=== PATIENT | male | born 1960 | race Caucasian/White ===

== ENCOUNTER → 2017-08-15 09:16 | Outpatient (CLI) | payer OTHER, SELFPAY ==
[2017-08-15 09:56] LABS: Anion Gap 8.3 mEq/L (5-15); Blood Urea Nitrogen 23 mg/dL (7-18); Carbon Dioxide 29 mmol/L (21.0-32.0); Chloride 103 mmol/L (98-107); Creatinine,Serum 0.98 mg/dL (0.70-1.30); Estimated Glomerular Filt Rate 80 ml/min (>60); GFR (African American) 96 ML/MIN (>60); Glucose 107 mg/dL (74-106); Potassium 4.3 mmoL/L (3.5-5.1); Sodium 136 mmol/L (136-145)
[2017-08-15 10:23] LABS: Basophils % 0.7 % (0.1-2.0); Eosinophils # 0.1 K/mm3 (0.0-0.4); Eosinophils % 1.8 % (0.1-12.0); Hematocrit 44.1 % (42.0-52.0); Hemoglobin 14.6 g/dL (14.1-18.0); Lymphocytes # 1.5 K/mm3 (0.7-4.5); Lymphocytes % 23.6 K/mm3 (10-50); Mean Corpuscular HGB Conc 33.1 g/dL (31.8-35.4); Mean Corpuscular Volume 93.6 fl (80-94); Mean Platelet Volume 8.5 fl (7.4-10.4); Monocytes # 0.4 K/mm3 (0.1-1.0); Monocytes % 6.4 % (1.7-9.3); Neutrophils # 4.4 K/mm3 (1.8-7.8); Neutrophils % 67.5 % (37.0-80.0); Platelet Count 277 K/mm3 (142-424); Red Blood Count 4.71 M/mm3 (4.60-6.20); Red Cell Distribution Width 12.7 % (11.5-17.5); White Blood Count 6.5 K/mm3 (4.8-10.8)
== END ==
PROVIDERS: Visit Provider Surgery
DX: K64.9 Unspecified hemorrhoids (principal)
CPT/HCPCS: 36415; 80048; 85025

== ENCOUNTER 2017-08-17 06:02 | Day surgery (SDC) | payer OTHER, SELFPAY ==
[2017-08-16 12:58] VITALS: BMI 35.9
[2017-08-17] VITALS (12 sets, daily range): BP systolic 66–140; BP diastolic 33–78; PULSE 47–99; RESP 16–20; TEMP 36.3–36.9; O2SAT 94–99
--- NOTE | 2017-08-17 06:50 | P.PN_ITS ---
[facility] Anesthesia Checklist - Structural Data Admitted From: Home Planned Operative Procedure/s: hemorrhoidectomy Consent for Planned Operative Procedure(s) Verified: Yes Verified Documents: Surgical Consent - Airway Assessment C-Spine Mobility Assessed: Yes TMJ Mobility Assessed: Yes Dentition: Good Dentition - Neurological Assessment Level of Consciousness: Awake, Alert - Anesthesia Plan Anesthesia Risk discussed: Yes Anesthesia Plan: Verified ASA Class: II Anesthesia Type: General [facility] Anesthesia HX I have reviewed the patient's past medical history: Yes Medical History: Reports:: Cancer (skin on back), Hypertension Denies:: Diabetes Mellitus Type 1, Diabetes Mellitus Type 2, MRSA, Seizures Other Medical History: Comment Only: Blood Transfusion Reaction (NA) Other Surgeries: Yes: Cancer Surgery, Colonoscopy, EGD Amputation: No Fractures: Yes *Family Hx:: Cancer, Hypertension
--- NOTE | 2017-08-17 09:00 | HMH.ANESI ---
[facility] Anesthesia Record Part I Intake, IV Amount: 600 Estimated blood loss (mL): 25 Urine output (mL): 10 Blood Products used (#): none Blood Pressure: 129/75 SaO2: 95 Pulse Rate: 96 Respiratory Rate: 18 Temperature: 97.4 F Patient is:: Awake, Stable Stable to PACU at:: 08:56
--- NOTE | 2017-08-17 09:02 | P.PN_ITS ---
[facility] Anesthesia Record Part II Discharge Time: 09:26 Destination: Surgical Day Care (OP Surgery) PACU nurse assessment reviewed?: Yes Patient Condition:: Good Anesthesia Complications:: None
--- NOTE | 2017-08-17 09:03 | P.OP_ITS ---
Date of procedure: 08/17/17 Pre-op Diagnosis:: Hemorrhoid bleeding Post-op Diagnosis:: Same Procedure performed:: Extensive internal/external hemorrhoidectomy ?2 Surgeon:: William Joy MD CAD APPLICATION SUPPORT SPECIALIST:: Livan Sandhu Anesthesia: LMA Estimated blood loss (mL): 100 Clinical Note:: Patient is a 56-year-old white male. I had performed colonoscopy on him a couple of years ago at which time he was found to have some slightly inflamed hemorrhoids. He was recently seen in the office for possible gallbladder issues. However this appeared to be incidental and asymptomatic. However, the patient stated that he had some ongoing rectal bleeding. I had given him a trial of steroid suppositories and he states that this helped somewhat transiently but then his symptoms recurred and been difficult with appreciable amount of rectal bleeding with bowel movements. Plan was made for possible hemorrhoid banding with exam under anesthesia and potential hemorrhoidectomy. Operative findings:: Patient had extensive nearly circumferential internal and external hemorrhoids. Had inflamed internal piles of hemorrhoids which appear to be irritated and using most notably in the left lateral and right posterior lateral locations. Operative note:: Consent was obtained and patient was taken to the operating room. General surgery was induced via LMA. He was positioned in lithotomy position. At this point visualization determined obvious extensive internal and external hemorrhoids. He was prepped and draped. Plan was made to proceed with hemorrhoidectomy. Digital examination was performed which revealed extensive hemorrhoid tissue. Rombauer anoscope was inserted. In the left lateral location there were some external hemorrhoids along with internal hemorrhoids which appeared to be irritated inflamed and oozing. There is also noted internal hemorrhoids which appeared to be friable and oozing in the right posterior lateral location. He did however have more extensive hemorrhoids circumferentially but these appeared to be nonbleeding. Attention was first turned to the left lateral hemorrhoid pile. This was excised in elliptical fashion using Metzenbaum dissection. Anoderm and underlying hemorrhoid tissue was sent off as specimen. The anorectal mucosa was then closed with a running locking 2-0 chromic suture and oversewn with simple running 2-0 chromic. Next attention was turned to the right posterior lateral hemorrhoid pile which was excised in a similar fashion. Anoderm was incised with 15 blade scalpel and then the anorectal mucosa and hemorrhoid tissue was excised. Mucosa was then reapproximated with a running 2-0 chromic locking suture and oversewn with simple running 2-0 chromic. Local anesthetic was infiltrated into both surgical sites. Gelfoam roll soaked in topical hemostatic agent was inserted into the rectal vault. Dressing was applied. Condition: stable Disposition: PACU Specimens:: Hemorrhoid tissue Complications:: None
[2017-08-17 10:32] LABS: Hematocrit 39.2 % (42.0-52.0)
--- NOTE | 2017-08-17 11:24 | SUR.PHASEII ---
1015- Pt states that he feels lightheaded and nauseated. bp:66/33, p:47 color is pale. Cool compress applied to forehead, iv opened wide for fluid bolus. Vic Geller in to see pt. Stat H&H order obtained. 1025- BP 81/46, p:59. Pt states that he is beginning to feel better. IV remains wide open. 1040- BP 103/60, P: 70. H&H results obtained, 500 CC iv bolus infused. Vic Geller in to revaluate pt., who states feling Much better . Detrermined ok to d/c pt when ready.
== END 2017-08-17 10:55 | disposition home or self-care (01) ==
LOC: OR 06:07
PROVIDERS: Family Provider Family Medicine; PCP Family Medicine; Visit Provider Surgery
PROC: (CPT 46260; principal; 2017-08-17 07:30)
DX: K64.8 Other hemorrhoids (principal)
CPT/HCPCS: 46260; 36415; 85014; 85018; 96374; J0131; J2405

== ENCOUNTER → 2020-10-28 19:25 | Outpatient (CLI) | payer OTHER, SELFPAY | PROVIDERS: Visit Provider Nurse Practitioner Family | DX: Z20.822 Contact with and (suspected) exposure to COVID-19 (principal) | CPT/HCPCS: U0003 ==

== ENCOUNTER 2020-11-01 01:29 | Emergency (ER) | payer OTHER, SELFPAY ==
[2020-11-01 01:30] VITALS: BP 156/87; PULSE 71; RESP 16; TEMP 37; O2SAT 96; BMI 39.4
--- NOTE | 2020-11-01 01:56 | HMH.EDABDPAI ---
ED Disposition Clinical Impression: Acute vomiting Disposition: Home, Self-Care Condition on Discharge: Good Instructions: DI for Acute Abdominal Pain Additional Instructions: Use the Zofran as needed for nausea and vomiting and increase oral hydration. Return to the ED for any new or worsening symptoms. Prescriptions: Ondansetron [Zofran 4mg ODT] 4 mg PO TIDP PRN 3 Days #9 tab PRN Reason: Nausea Transmission Status: Pending to [facility] #[id number] Referrals: Anant Esteves MD [Primary Care Provider] - Time of Disposition: 03:28 - Critical Care Critical Care Time: No Attestation: On 11/01/20, the high probability of a clinically significant, sudden or life threatening deterioration of the following system(s) required my full and direct attention, intervention and personal management. The time I documented below is in addition to time spent performing reported procedures but includes the following listed in this critical care notation. Medical Decision Making - Medical Records Medical records reviewed: Yes: I reviewed the patient's medical records. - Chau Inquiry Pt receiving controlled substance: No Vital Signs: 11/01/20 01:30 11/01/20 03:21 Temperature 98.6 F Temperature Source Oral Pulse Rate 78 Pulse Rate [Left Radial] 71 Respiratory Rate 16 Blood Pressure 129/70 Blood Pressure [Right Arm] 156/87 H Blood Pressure Mean [Right Arm] 110 Blood Pressure Source [Right Arm] Automatic Cuff Blood Pressure Position [Right Arm] Sitting 02 Sat by Pulse Oximetry 96 98 Oxygen Delivery Method Room Air - Lab Data Lab Results 11/01/20 01:35: Urine Color Yellow, Urine Appearance Clear, Urine pH 6.0, Ur Specific [place] 1.025, Urine Protein Negative, Urine Glucose (UA) Negative, Urine Ketones Negative, Urine Blood Trace-i, Urine Nitrate Negative, Urine Bilirubin Negative, Urine Urobilinogen 0.2, Ur Leukocyte Esterase Negative, Urine RBC Occasional, Urine WBC Occasional, Ur Squamous Epith Cells 3-5, Urine Bacteria None, Urine Sperm Occ 11/01/20 02:37: WBC 7.2, RBC 4.69, Hgb 14.2, Hct 42.3, MCV 90.1, MCH 30.3, MCHC 33.6, RDW 13.2, Plt Count 192, MPV 8.5, Neut % (Auto) 38.8, Lymph % (Auto) 52.5 H, [place] % (Auto) 6.1, Eos % (Auto) 1.6, Baso % (Auto) 1.1, Neut # (Auto) 2.8, Lymph # (Auto) 3.8, [place] # (Auto) 0.4, Eos # (Auto) 0.1, Baso # (Auto) 0.1, Total Counted 100, Neutrophils % (Manual) 33 L, Lymphocytes % (Manual) 61 H, Monocytes % (Manual) 5, Basophils % (Manual) 1.0, Platelet Estimate Normal, RBC Morphology Normal 11/01/20 02:37: Sodium 137, Potassium 3.6, Chloride 103, Carbon Dioxide 25, Anion Gap 12.6, BUN 23 H, Creatinine 0.70, Estimated Creat Clear 199, Estimated GFR 116, Est GFR ( Amer) 141, Glucose 167 H, Calcium 8.7, Total Bilirubin 0.4, AST 44, ALT 39, Alkaline Phosphatase 104, Total Protein 7.1, Albumin 3.9, Globulin 3.2, Albumin/Globulin Ratio 1.2, Lipase 98 Result diagrams: 11/01/20 02:37 11/01/20 02:37 Orders (Tests/Meds): ED MEDICATIONS Generic Name Dose Route Start Last Admin Trade Name Freq PRN Reason Stop Dose Admin Sodium Chloride 1,000 mls @ 999 mls/hr 11/01/20 02:00 11/01/20 02:39 Sod Chlor 0.9% 1000ml Bag IV 11/01/20 03:00 999 mls/hr .Q1H1M DYLON Administration Discontinued Medications Generic Name Dose Route Start Last Admin Trade Name Freq PRN Reason Stop Dose Admin Belladonna Alkaloids 60 ml 11/01/20 01:56 11/01/20 02:38 Gi Cocktail 60ml Udc PO 11/01/20 01:57 60 ml ONCE ONE Administration Ketorolac Tromethamine 15 mg 11/01/20 01:56 11/01/20 02:38 Ketorolac 30mg/Ml Vial IV 11/01/20 01:57 15 mg ONCE ONE Administration Ondansetron HCl 4 mg 11/01/20 01:56 11/01/20 02:39 Ondansetron 4mg/2ml Vial IV 11/01/20 01:57 4 mg ONCE ONE Administration Medical Decision Narrative: 59 yo M who presents with sudden onset of crampy abdominal discomfort and vomiting. He is well appearing and nontoxic and has a benig
[2020-11-01 02:01] LABS: Microscopic, Urine URINE MICROSCOPIC (MICROSCOPIC)
[2020-11-01 02:03] LABS: Appearance,Urine CLEAR (Clear); Bilirubin,Urine Negative (Negative); Blood, Urine TRACE-I (Negative); Color,Urine YELLOW (Yellow); Glucose,Urine (UA) Negative (Negative); Ketones,Urine Negative (Negative); Leukocyte Esterase,Urine Negative (Negative); Nitrate,Urine Negative (Negative); Protein,Urine Negative (Negative); Specific Gravity, Urine 1.025 (1.005-1.030); Urobilinogen,Urine 0.2 EU/dl (0.2)
[2020-11-01 02:12] LABS: RBC,Urine Occasional #/hpf (0-3); Sperm,Urine OCC /lpf; WBC,Urine Occasional #/hpf (0-3)
[2020-11-01 02:43] LABS: Basophils # 0.1 K/mm3 (0-0.2); Basophils % 1.1 % (0.1-2.0); Eosinophils # 0.1 K/mm3 (0.0-0.4); Eosinophils % 1.6 % (0.1-12.0); Hematocrit 42.3 % (42.0-52.0); Hemoglobin 14.2 g/dL (14.1-18.0); Lymphocytes # 3.8 K/mm3 (0.7-4.5); Lymphocytes % 52.5 % (10-50); Mean Corpuscular HGB Conc 33.6 g/dL (31.8-35.4); Mean Corpuscular Hemoglobin 30.3 pg (27.0-31.2); Mean Corpuscular Volume 90.1 fl (80-94); Mean Platelet Volume 8.5 fl (7.4-10.4); Monocytes # 0.4 K/mm3 (0.1-1.0); Monocytes % 6.1 % (1.7-9.3); Neutrophils # 2.8 K/mm3 (1.8-7.8); Neutrophils % 38.8 % (37.0-80.0); Platelet Count 192 K/mm3 (142-424); Red Blood Count 4.69 M/mm3 (4.60-6.20); Red Cell Distribution Width 13.2 % (11.5-17.5); White Blood Count 7.2 K/mm3 (4.8-10.8)
[2020-11-01 02:48] LABS: MANUAL DIFFERENTIAL MANUAL DIFFERENTIAL (MANUAL DIFF)
[2020-11-01 02:49] LABS: Chloride 103 mmol/L (98-107); Potassium 3.6 mmoL/L (3.5-5.1); Sodium 137 mmol/L (136-145)
[2020-11-01 02:51] LABS: Alanine Aminotransferase 39 U/L (12-78); Alkaline Phosphatase 104 U/L (38-126); Aspartate Amino Transferase 44 U/L (17-59); Bilirubin,Total 0.4 mg/dl (0.2-1.3); Blood Urea Nitrogen 23 mg/dl (9-20); Creatinine Clearance Estimated 199 mL/min (50-200); Estimated Glomerular Filt Rate 116 ml/min (>60); GFR (African American) 141 ML/MIN (>60)
[2020-11-01 02:52] LABS: Albumin Level 3.9 g/dl (3.5-5.0); Albumin/Globulin Ratio 1.2 (1.1-1.8); Anion Gap 12.6 mEq/L (5-15); Calcium 8.7 mg/dl (8.4-10.2); Carbon Dioxide 25 mmol/L (22.0-30.0); Globulin 3.2 g/dL (1.3-3.2); Glucose 167 mg/dl (74-100); Lipase 98 U/L (23-300); Total Protein,Serum 7.1 g/dl (6.3-8.2)
[2020-11-01 03:08] LABS: Lymphocytes % 61 % (10-50); Monocytes % 5 % (2-9); Neutrophils % 33 % (42-76); Platelet Estimate Normal; RBC Morphology Normal; Total Cells Counted 100
[2020-11-01 03:21] VITALS: BP 129/70; PULSE 78; O2SAT 98
[2020-11-01 03:43] VITALS: BP 113/73; PULSE 73; RESP 18; TEMP 36.2; O2SAT 99
== END 2020-11-01 03:55 | disposition home or self-care (01) ==
PROVIDERS: Emergency Provider Student in an Organized Health Care Education/Training Program; PCP Family Medicine
DX: R10.10 Upper abdominal pain, unspecified (principal); R11.10 Vomiting, unspecified; I10 Essential (primary) hypertension; Z79.899 Other long term (current) drug therapy
CPT/HCPCS: 80053; 81001; 83690; 85007; 85025; 96365; 96375; 99282; J2405

== ENCOUNTER 2020-11-03 04:15 | Emergency (ER) | payer OTHER, SELFPAY ==
[2020-11-03 04:16] VITALS: BP 140/79; PULSE 72; RESP 18; TEMP 37.1; O2SAT 96; BMI 38.2
[2020-11-03 04:29] VITALS: BMI 39.6
--- NOTE | 2020-11-03 04:32 | CT_ITS ---
PROCEDURE INFORMATION: Exam: CT Abdomen And Pelvis With Contrast Exam date and time: 11/03/2020 4:32 AM Age: 59 years old Clinical indication: Abdominal pain; Localized; Patient HX: Upper abd pain for 2 days with vomiting TECHNIQUE: Imaging protocol: Computed tomography of the abdomen and pelvis with contrast. Radiation optimization: All CT scans at this facility use at least one of these dose optimization techniques: automated exposure control; mA and/or kV adjustment per patient size (includes targeted exams where dose is matched to clinical indication); or iterative reconstruction. Contrast material: ISOVUE; Contrast volume: 75 ml; Contrast route: IV; COMPARISON: No relevant prior studies available. FINDINGS: Liver: The liver is diffusely low in attenuation. Gallbladder and bile ducts: There is edema adjacent to the gallbladder. No stones are identified but the gallbladder is filled with somewhat hyper dense material. The wall is not discerned. Pancreas: Normal. No ductal dilation. Spleen: Normal. No splenomegaly. Adrenal glands: Normal. No mass. Kidneys and ureters: Normal. No hydronephrosis. Stomach and bowel: Unremarkable. No obstruction. No mucosal thickening. Appendix: No evidence of appendicitis. Intraperitoneal space: Unremarkable. No free air. No significant fluid collection. Vasculature: Unremarkable. No abdominal aortic aneurysm. Lymph nodes: Unremarkable. No enlarged lymph nodes. Urinary bladder: Unremarkable as visualized. Reproductive: Unremarkable as visualized. Bones/joints: Unremarkable. No acute fracture. Soft tissues: Unremarkable. IMPRESSION: Diffuse pericholecystic edema worrisome for acute cholecystitis. Correlation with right upper quadrant ultrasound is recommended. Diffuse hepatic steatosis.
--- NOTE | 2020-11-03 04:41 | HMH.EDNVD ---
ED Disposition Clinical Impression: Cholecystitis Abdominal pain Qualifiers: Abdominal location: epigastric Qualified Code(s): R10.13 - Epigastric pain Disposition: Home, Self-Care Condition on Discharge: Good Instructions: DI for Acute Abdominal Pain Additional Instructions: call pcp this am Referrals: Anant Esteves MD [Primary Care Provider] - - Critical Care Critical Care Time: No Attestation: On , the high probability of a clinically significant, sudden or life threatening deterioration of the following system(s) required my full and direct attention, intervention and personal management. The time I documented below is in addition to time spent performing reported procedures but includes the following listed in this critical care notation. Medical Decision Making - Medical Records Medical records reviewed: Yes: I reviewed the patient's medical records. - Chau Inquiry Pt receiving controlled substance: No Vital Signs: 11/03/20 04:16 11/03/20 05:00 11/03/20 05:51 Temperature 98.7 F Temperature Source Oral Pulse Rate 65 Pulse Rate [Left] 72 Respiratory Rate 18 16 Blood Pressure 141/78 H 136/81 Blood Pressure [Left Arm] 140/79 Blood Pressure Mean 102 Blood Pressure Mean [Left Arm] 99 Blood Pressure Source Automatic Cuff Blood Pressure Source [Left Arm] Automatic Cuff Blood Pressure Position Sitting 02 Sat by Pulse Oximetry 96 96 Oxygen Delivery Method Room Air Room Air - Lab Data Lab results reviewed: Yes: I reviewed the patient's lab results. Lab Results 11/03/20 04:35: WBC 10.2 D, RBC 4.68, Hgb 14.3, Hct 41.6 L, MCV 88.7, MCH 30.6, MCHC 34.5, RDW 13.2, Plt Count 257 D, MPV 8.4, Neut % (Auto) 66.3, Lymph % (Auto) 25.1, [place] % (Auto) 6.9, Eos % (Auto) 1.3, Baso % (Auto) 0.5, Neut # (Auto) 6.8, Lymph # (Auto) 2.6, [place] # (Auto) 0.7, Eos # (Auto) 0.1, Baso # (Auto) 0.1, ESR 22 H 11/03/20 04:35: Sodium 136, Potassium 3.8, Chloride 105, Carbon Dioxide 24, Anion Gap 10.8, BUN 19, Creatinine 0.70, Estimated Creat Clear 206, Estimated GFR 116, Est GFR ( Amer) 141, Glucose 157 H, Calcium 8.5, Total Bilirubin 0.6, AST 40, ALT 41, Alkaline Phosphatase 105, C-Reactive Protein 17.0 H, Total Protein 7.3, Albumin 4.2, Globulin 3.1, Albumin/Globulin Ratio 1.4, Amylase 51, Lipase 103, Procalcitonin 0.100 11/03/20 04:40: Urine Color Yellow, Urine Appearance Clear, Urine pH 6.0, Ur Specific [place] 1.020, Urine Protein Negative, Urine Glucose (UA) Negative, Urine Ketones Negative, Urine Blood Trace-i, Urine Nitrate Negative, Urine Bilirubin Negative, Urine Urobilinogen 0.2, Ur Leukocyte Esterase Negative, Urine RBC Occasional, Urine WBC Occasional, Ur Squamous Epith Cells None, Urine Bacteria None Result diagrams: 11/03/20 04:35 11/03/20 04:35 Orders (Tests/Meds): ED MEDICATIONS Generic Name Dose Route Start Last Admin Trade Name Freq PRN Reason Stop Dose Admin Lactated Ringer's 1,000 mls @ 999 mls/hr 11/03/20 04:45 11/03/20 04:37 Lactated Ringer's 1000 Ml Bag IV 11/03/20 05:45 999 mls/hr .Q1H1M DYLON Administration Sodium Chloride 8 ml 11/03/20 04:32 Sodium Chloride 0.9% 10ml Vial IV 12/03/20 04:31 NEEDED PRN dilute pepcid Discontinued Medications Generic Name Dose Route Start Last Admin Trade Name Freq PRN Reason Stop Dose Admin Diatrizoate Meglum/Diatrizoate Sod 30 ml 11/03/20 04:32 11/03/20 04:40 Diatrizoate Stephanie 66% & Diatrizoate Na 10% 30ml Udc PO 11/03/20 04:33 30 ml ONCE ONE Administration Famotidine 20 mg 11/03/20 04:32 11/03/20 04:37 Famotidine 20mg/2ml Vial IV 11/03/20 04:33 20 mg ONCE ONE Administration Iopamidol 75 ml 11/03/20 05:51 11/03/20 05:52 Iopamidol-370 (76%);100ml Bottle IV 11/03/20 05:52 75 ml ONCE ONE Administration Ketorolac Tromethamine 30 mg 11/03/20 04:32 11/03/20 04:37 Ketorolac 30mg/Ml Vial IV 11/03/20 04:33 30 mg ONCE ONE Administration Metoclopramide HCl
[2020-11-03 04:46] LABS: Microscopic, Urine URINE MICROSCOPIC (MICROSCOPIC)
[2020-11-03 04:47] LABS: Basophils # 0.1 K/mm3 (0-0.2); Basophils % 0.5 % (0.1-2.0); Eosinophils # 0.1 K/mm3 (0.0-0.4); Eosinophils % 1.3 % (0.1-12.0); Hematocrit 41.6 % (42.0-52.0); Hemoglobin 14.3 g/dL (14.1-18.0); Lymphocytes # 2.6 K/mm3 (0.7-4.5); Lymphocytes % 25.1 % (10-50); Mean Corpuscular HGB Conc 34.5 g/dL (31.8-35.4); Mean Corpuscular Hemoglobin 30.6 pg (27.0-31.2); Mean Corpuscular Volume 88.7 fl (80-94); Mean Platelet Volume 8.4 fl (7.4-10.4); Monocytes # 0.7 K/mm3 (0.1-1.0); Monocytes % 6.9 % (1.7-9.3); Neutrophils # 6.8 K/mm3 (1.8-7.8); Neutrophils % 66.3 % (37.0-80.0); Platelet Count 257 K/mm3 (142-424); Red Blood Count 4.68 M/mm3 (4.60-6.20); Red Cell Distribution Width 13.2 % (11.5-17.5); White Blood Count 10.2 K/mm3 (4.8-10.8)
[2020-11-03 04:48] LABS: Appearance,Urine CLEAR (Clear); Bilirubin,Urine Negative (Negative); Blood, Urine TRACE-I (Negative); Color,Urine YELLOW (Yellow); Glucose,Urine (UA) Negative (Negative); Ketones,Urine Negative (Negative); Leukocyte Esterase,Urine Negative (Negative); Nitrate,Urine Negative (Negative); Protein,Urine Negative (Negative); Urobilinogen,Urine 0.2 EU/dl (0.2)
--- NOTE | 2020-11-03 04:48 | PC.NURSE ---
PO contrast not given Order changed
[2020-11-03 04:53] LABS: RBC,Urine Occasional #/hpf (0-3); WBC,Urine Occasional #/hpf (0-3)
--- NOTE | 2020-11-03 04:53 | PC.NURSE ---
MD decided to not have pt take oral contrast, IV only. Pt will be kept NPO at this time.
[2020-11-03 04:56] LABS: Alanine Aminotransferase 41 U/L (12-78); Albumin Level 4.2 g/dl (3.5-5.0); Albumin/Globulin Ratio 1.4 (1.1-1.8); Alkaline Phosphatase 105 U/L (38-126); Amylase 51 U/L (30-110); Anion Gap 10.8 mEq/L (5-15); Aspartate Amino Transferase 40 U/L (17-59); Bilirubin,Total 0.6 mg/dl (0.2-1.3); Blood Urea Nitrogen 19 mg/dl (9-20); Calcium 8.5 mg/dl (8.4-10.2); Carbon Dioxide 24 mmol/L (22.0-30.0); Chloride 105 mmol/L (98-107); Creatinine Clearance Estimated 206 mL/min (50-200); Estimated Glomerular Filt Rate 116 ml/min (>60); GFR (African American) 141 ML/MIN (>60); Globulin 3.1 g/dL (1.3-3.2); Glucose 157 mg/dl (74-100); Lipase 103 U/L (23-300); Potassium 3.8 mmoL/L (3.5-5.1); Sodium 136 mmol/L (136-145); Total Protein,Serum 7.3 g/dl (6.3-8.2)
[2020-11-03 05:00] VITALS: BP 141/78; PULSE 65; RESP 16; O2SAT 96
[2020-11-03 05:11] LABS: Erythrocyte Sedimentation Rate 22 mm/hr (0-20)
--- NOTE | 2020-11-03 05:35 | PC.NURSE ---
Pt had a BM and reports his pain has been relieved and rates it 0/10.
--- NOTE | 2020-11-03 05:48 | PC.NURSE ---
Pt ambulating independently to BR again at this time.
[2020-11-03 05:51] VITALS: BP 136/81
--- NOTE | 2020-11-03 06:17 | PC.NURSE ---
recommends for pt to have RUQ ABD u/s however, pt requesting to be d/c at this time.
--- NOTE | 2020-11-03 06:22 | PC.NURSE ---
Pt instructed to keep NPO status for u/s
[2020-11-03 06:24] VITALS: BP 136/77; PULSE 61; RESP 14; TEMP 36.6; O2SAT 96
== END 2020-11-03 06:26 | disposition home or self-care (01) ==
PROVIDERS: Emergency Provider Emergency Medicine; PCP Family Medicine
DX: K81.0 Acute cholecystitis (principal); I10 Essential (primary) hypertension; Z79.899 Other long term (current) drug therapy
CPT/HCPCS: 74177; 80053; 81001; 82150; 83690; 84145; 85025; 85651; 86140; 96365; 96375; 99283; J2405; Q9967

== ENCOUNTER → 2020-11-03 14:54 | Outpatient (CLI) | payer OTHER, SELFPAY | PROVIDERS: Visit Provider Surgery | DX: Z01.812 Encounter for preprocedural laboratory examination (principal); Z11.52 Encounter for screening for COVID-19; R10.11 Right upper quadrant pain; K81.9 Cholecystitis, unspecified | CPT/HCPCS: U0003 ==

== ENCOUNTER 2020-11-04 11:26 | Observation (INO) | payer OTHER, SELFPAY ==
[2020-11-03 16:27] VITALS: BMI 38.9
[2020-11-04] VITALS (23 sets, daily range): BP systolic 121–164; BP diastolic 75–97; PULSE 72–100; RESP 12–18; TEMP 36.8–43; O2SAT 90–98; BMI 37.8
--- NOTE | 2020-11-04 08:24 | US_ITS ---
PROCEDURE: US GALLBLADDER CLINICAL INDICATION: ABdominal pain COMPARISON: CT CT ABDOMEN PELVIS W CON from 11/03/2020 FINDINGS: Pancreas: Unremarkable/Not well seen Liver: Diffuse increased echogenicity of the liver with poor through transmission of sound consistent with hepatic steatosis. No focal liver lesion demonstrated. There is appropriate direction of blood flow within non dilated portal vein. Right kidney: Unremarkable appearing. No hydronephrosis. Gallbladder: Gallbladder wall is thickened measuring up to 7 mm with a small amount of pericholecystic fluid. Images are somewhat limited secondary to patient's body habitus. There is diffuse increased echogenicity of the contents of the gallbladder consistent with sludge and suspected small stones with some shadowing. Common bile duct is normal at 4 mm. Gallbladder is slightly distended. IMPRESSION: Distended gallbladder filled with sludge and small stones with thickened gallbladder wall and a small amount pericholecystic fluid suggesting acute cholecystitis. Common bile duct is normal 4 mm. Dictated by: Chicho Richardson MD 11/04/2020 10:12 Chicho Richardson MD in OV 11/04/2020 10:12
--- NOTE | 2020-11-04 09:39 | P.PN_ITS ---
[facility] Anesthesia Checklist - Patient Identification Patient Identification: Arm Band - Structural Data Admitted From: Home Planned Operative Procedure/s: Lap. cholecystectomy - NPO Status Verified Time NPO: 00:00 - Additional verifications Anesthesia Reactions: No Hx Blood Transfusions: No Blood Transfusion Reaction: (NA) - Airway Assessment C-Spine Mobility Assessed: Yes TMJ Mobility Assessed: Yes Dentition: Good Dentition - Neurological Assessment Level of Consciousness: Awake Hx Seizures: No Numbness or tingling in extremities: No - Anesthesia Plan Anesthesia Risk discussed: Yes Anesthesia Plan: Verified ASA Class: II Anesthesia Type: General [facility] History I have reviewed the patient's past medical history: Yes Medical History: Reports:: Cancer (skin- basal cell), Hypertension Denies:: Diabetes Mellitus Type 1, Diabetes Mellitus Type 2, Internal Pacemaker, MRSA, Seizures *Have you ever received a pneumonia vaccine?: No *Have you received a flu vaccine this season?: Yes Other Medical History: Reports: OtherComment Only: Blood Transfusion Reaction (NA) Anesthesia experience/problems:: BP issues Other Surgeries: Yes: Cancer Surgery, Colonoscopy, EGD. No: Pacemaker Amputation: No Fractures: Yes (BILATERAL WRIST) - *Social History Last grade of school completed: Some college Smoking Status: Never smoker Alcohol Intake: never Alcohol Intake Frequency:: other Substance Use Type: denies use *Occupational Status:: employed Housing: house Household Members: spouse *Travel in the last 8 weeks: None Family Hx:: Cancer, Hypertension
--- NOTE | 2020-11-04 10:56 | HMH.ANESCL ---
[facility] Anesthesia Checklist - Patient Identification Patient Identification: Arm Band - Structural Data Admitted From: Home Planned Operative Procedure/s: Lap. francine Consent for Planned Operative Procedure(s) Verified: Yes Verified Documents: Surgical Consent, History and Physical - NPO Status Verified Time NPO: 00:00 - Additional verifications Anesthesia Reactions: No Hx Blood Transfusions: No Blood Transfusion Reaction: (NA) - Airway Assessment C-Spine Mobility Assessed: Yes TMJ Mobility Assessed: Yes Dentition: Good Dentition - Neurological Assessment Level of Consciousness: Awake, Alert - Anesthesia Plan Anesthesia Risk discussed: Yes Anesthesia Plan: Verified ASA Class: III Anesthesia Type: General [facility] History Medical History: Reports:: Cancer (skin- basal cell), Hypertension Denies:: Diabetes Mellitus Type 1, Diabetes Mellitus Type 2, Internal Pacemaker, MRSA, Seizures *Have you ever received a pneumonia vaccine?: No *Have you received a flu vaccine this season?: Yes Other Medical History: Reports: OtherComment Only: Blood Transfusion Reaction (NA) Anesthesia experience/problems:: BP issues Other Surgeries: Yes: Cancer Surgery, Colonoscopy, EGD. No: Pacemaker Amputation: No Fractures: Yes (BILATERAL WRIST) - *Social History Last grade of school completed: Some college Smoking Status: Never smoker Alcohol Intake: never Alcohol Intake Frequency:: other Substance Use Type: denies use *Occupational Status:: employed Housing: house Household Members: spouse *Travel in the last 8 weeks: None Family Hx:: Cancer, Hypertension
--- NOTE | 2020-11-04 11:09 | SUR.OPER ---
1109-pt's updated at this time
--- NOTE | 2020-11-04 12:43 | SUR.OPER ---
1243-family updated at this time
--- NOTE | 2020-11-04 13:56 | HMH.OPNOTE ---
Date of procedure: 11/04/20 Pre-op Diagnosis:: Symptomatic gallstones Incidental umbilical hernia Post-op Diagnosis:: Severe acute cholecystitis Umbilical hernia Procedure performed:: Laparoscopic cholecystectomy Open primary repair of umbilical hernia Surgeon:: William Joy MD ASSESSMENT COORDINATOR:: Other Anesthesia: GETA Estimated blood loss (mL): 40 Clinical Note:: Patient is a 59-year-old male whom I had seen in the past previously for colonoscopy. He also had undergone hemorrhoid surgery. He has a known history of gallstones as he had some lower abdominal pain in the past and has CT scan revealing gallstones. This seemed to be asymptomatic and incidental at that time. However, recently he has had some symptoms consistent with possible gallbladder disease. Patient had eaten [employer] food in [place], [place] and had developed epigastric pain with some associated nausea. He presented to the emergency department here at [facility] on 11/01/2020 where he was seen and evaluated and diagnosed with possible food poisoning. He was able to be managed as an outpatient. However he had recurrent symptoms and was seen in the emergency department yesterday morning. He underwent CT scan which reveals multiple gallstones with possible pericholecystic fluid and edema. Gallbladder ultrasound was recommended. Patient's symptoms improved and he wished to follow-up as an outpatient. He was seen in his primary care provider's office after being seen in the emergency department and sent for surgical evaluation. Patient was seen in the office yesterday. At that time he felt well. He had some minor discomfort to deep palpation in the right upper quadrant. Options were discussed with him. He wished to pursue cholecystectomy which was scheduled for the following day. Upon presentation for surgery patient states that he felt very ill throughout the evening with fevers and significant pain. He did undergo ultrasound preoperatively which revealed findings of thick sludge and debris with gallbladder wall thickening and small amount of pericholecystic fluid with normal common bile duct. Operative findings:: He had a small to moderate sized umbilical hernia. Gallbladder is severely inflamed and thickened virtually resembling a phlegmon in the right upper quadrant with numerous gallstones. He had significant fatty infiltration of the liver consistent with nonalcoholic fatty liver disease. Operative note:: Consent was obtained and patient was taken to the operating room. He was given preoperative intravenous antibiotic consisting of 2 g of Ancef. He was placed in a supine position. General anesthesia was induced. Abdomen was prepped and draped in the standard surgical fashion. Subumbilical incision was made. Dissection was carried down to the umbilical subdermis. Hernia sac was opened. Peritoneal cavity was easily entered. Blunt Milner trocar was inserted into the peritoneal cavity and secured with the 0 Vicryl sutures to the surrounding fascia. CO2 pneumoperitoneum was achieved to 15 mmHg. Patient was positioned in reverse Trendelenburg left side down. A couple 5 mm trochars were inserted in the right upper abdomen. Please note that ultimately an additional 5 mm trocar was inserted in the right upper abdomen to allow for a fan retractor for retraction of the fatty tissues around the twila hepatis. 10 mm trocar was inserted in the epigastric location. He was found to have significant fatty infiltration of the liver. Initially identification of the gallbladder was quite difficult as there were extensive inflammatory adhesions of omentum to the gallbladder. Ultimately the gallbladder was able to be identified. The 0 degree laparoscope was replaced with the 45 degree 10 mm laparoscope to allow for visualization. Dissection was carried out dissecting the adherent omentum off of the gallbladder. Gallbladder was extremely tense and distended. Laparoscopic murray
--- NOTE | 2020-11-04 14:20 | HMH.ANESI ---
[facility] Anesthesia Record Part I Intake, IV Amount: 1,800 Estimated blood loss (mL): 50 Urine output (mL): 0 Blood Pressure: 139/77 SaO2: 93 Pulse Rate: 94 Respiratory Rate: 12 Temperature: 98.8 F Patient is:: Drowsy Stable to PACU at:: 14:00
--- NOTE | 2020-11-04 14:54 | HMH.ACPN2 ---
Internal Medicine - PN: Subj *Date: 11/04/20 *Time: 14:54 Interval history: Consulted by surgery to see patient postoperatively. He just had a lap cholecystectomy. Exam Vital signs and Labs for Last 24 Hours: Temp Pulse Resp BP Pulse Ox 98.8 F 97 H 18 159/97 H 90 L 11/04/20 14:22 11/04/20 14:30 11/04/20 14:30 11/04/20 14:30 11/04/20 14:30 I & O for Last 24 hours: Intake & Output 11/01/20 11/02/20 11/03/20 11/04/20 23:59 23:59 23:59 23:59 Intake Total 1800 / 1800 Balance 1800 / 1800 Weight 271 lb - Constitutional no acute distress (awakens to voice) - *Routine Respiratory Exam Present: CTA bilaterally - *Routine Cardiovascular Exam Present: RRR Assessment and Plan (1) S/P cholecystectomy Status: Acute Category: Surgical Code(s): Z90.49 - Acquired absence of other specified parts of digestive tract (2) Cholecystitis Status: Acute Category: Medical Code(s): K81.9 - Cholecystitis, unspecified - Assessment and plan all Dx Assessment and Plan for all problems:: POD #0, continue routine care.
--- NOTE | 2020-11-04 14:56 | SUR.PHASEI ---
1440 REPORT CALLED TO ANJEL ON MED/SURG PER VERNA GIVENS RN.
--- NOTE | 2020-11-04 15:22 | HMH.PHAINT ---
HOME MEDICATIONS RECONCILED FROM [facility] MED LIST.
--- NOTE | 2020-11-04 15:51 | HMH.PHAVTE ---
[facility] Pharmacy VTE Monitoring - Patient Demographics Admission date: 11/04/20 Report Date: 11/04/20 Time: 15:51 Allergies/Adverse Reactions: Patient Allergies No Known Allergies Allergy (Unverified 11/03/20 14:29) Height: 1.78 m Weight: 119.522 kg Patient Problems: Current Active Problems Cholecystitis (Acute) S/P cholecystectomy (Acute) - VTE Risk Was VTE Risk Assessment Performed: Yes VTE Score: 4 VTE Risk Level: Low Risk - Prophylaxis VTE Prophylaxis Ordered?: Yes Types of VTE Prophylaxis: IPCS Thigh High Location of Applied Device: Bilateral Lower Extremeties
--- NOTE | 2020-11-04 16:08 | PC.NURSE ---
Pt is admitted from OR s/p lap francine with umbilical hernia repair. He has 5 lap sites to abd. Upper medial dressing has bloody drainage and far right dressing has small amount of bloody drainage. He denies pain. He is alert and oriented x4. Lungs are clear, bowel sounds are hypoactive x4. Abdomen is large, round and tender to palpation. Pt placed on 2L NC for O2 sat of 88 on RA. Will wean as appropriate. He is currently resting in bed with his eyes closed.
[2020-11-05] VITALS: BP 135/74; PULSE 75; RESP 18; TEMP 36.8; O2SAT 95
[2020-11-05 04:00] VITALS: BP 138/82; PULSE 77; RESP 24; TEMP 37; O2SAT 94
[2020-11-05 05:02] VITALS: BMI 37.8
--- NOTE | 2020-11-05 05:32 | PC.NURSE ---
A&OX4. PT TOLERATING RA WELL. PT HAS BEEN AWAKE ALL NIGHT. PT HAS HAD NO C/O PAIN THUS FAR. 5 INCISIONS TO ABD CDI. BOWEL SOUNDS ACTIVE. VSS WILL CONTINUE TO MONITOR.
--- NOTE | 2020-11-05 06:35 | HMH.GSPN ---
Subjective Patient reports: feels better Narrative: Patient feels well without complaints. He has had some abdominal soreness when up to the restroom. Progress Note: A&P (1) S/P cholecystectomy Status: Acute (2) Cholecystitis Status: Acute Assessment and Plan for All Diagnoses:: Check laboratory values today. If within reasonable limits possible discharge on continuation of several days of oral antibiotics Exam Vital signs and Labs for Last 24 Hours: Temp Pulse Resp BP Pulse Ox 98.6 F 77 24 138/82 94 L 11/05/20 04:00 11/05/20 04:00 11/05/20 04:00 11/05/20 04:00 11/05/20 04:00 I & O for Last 24 hours: Intake & Output 11/02/20 11/03/20 11/04/20 11/05/20 11:59 11:59 11:59 11:59 Intake Total 2423 / 2423 Output Total 1450 / 1450 Balance 973 / 973 Weight 271 lb 264 lb 7 oz - *Routine Abdominal Exam Present: soft
[2020-11-05 07:18] LABS: Basophils % 0.2 % (0.1-2.0); Eosinophils % 0.2 % (0.1-12.0); Hematocrit 37.2 % (42.0-52.0); Hemoglobin 12.4 g/dL (14.1-18.0); Lymphocytes # 1.5 K/mm3 (0.7-4.5); Lymphocytes % 15.6 % (10-50); Mean Corpuscular HGB Conc 33.2 g/dL (31.8-35.4); Mean Corpuscular Hemoglobin 30.2 pg (27.0-31.2); Mean Corpuscular Volume 90.9 fl (80-94); Mean Platelet Volume 7.9 fl (7.4-10.4); Monocytes # 0.7 K/mm3 (0.1-1.0); Monocytes % 7.5 % (1.7-9.3); Neutrophils # 7.3 K/mm3 (1.8-7.8); Neutrophils % 76.6 % (37.0-80.0); Platelet Count 254 K/mm3 (142-424); Red Cell Distribution Width 13.4 % (11.5-17.5); White Blood Count 9.5 K/mm3 (4.8-10.8)
[2020-11-05 07:28] LABS: Alanine Aminotransferase 68 U/L (12-78); Albumin Level 3.6 g/dl (3.5-5.0); Albumin/Globulin Ratio 1.2 (1.1-1.8); Alkaline Phosphatase 59 U/L (38-126); Anion Gap 8.9 mEq/L (5-15); Aspartate Amino Transferase 78 U/L (17-59); Bilirubin,Total 0.9 mg/dl (0.2-1.3); Blood Urea Nitrogen 14 mg/dl (9-20); Calcium 8.2 mg/dl (8.4-10.2); Carbon Dioxide 27 mmol/L (22.0-30.0); Chloride 106 mmol/L (98-107); Creatinine Clearance Estimated 198 mL/min (50-200); Estimated Glomerular Filt Rate 116 ml/min (>60); GFR (African American) 141 ML/MIN (>60); Glucose 110 mg/dl (74-100); Potassium 3.9 mmoL/L (3.5-5.1); Sodium 138 mmol/L (136-145); Total Protein,Serum 6.6 g/dl (6.3-8.2)
[2020-11-05 07:44] VITALS: BP 160/91; PULSE 83; RESP 18; TEMP 37.2; O2SAT 96
--- NOTE | 2020-11-05 08:07 | HMH.DCSUM ---
General - General Admission date:: 11/04/20 Discharge date: 11/05/20 HPI HPI: Patient is a 59-year-old male whom I had seen in the past previously for colonoscopy. He also had undergone hemorrhoid surgery. He has a known history of gallstones as he had some lower abdominal pain in the past and has CT scan revealing gallstones. This seemed to be asymptomatic and incidental at that time. However, recently he has had some symptoms consistent with possible gallbladder disease. Patient had eaten [place] food in [place], [place] and had developed epigastric pain with some associated nausea. He presented to the emergency department here at [facility] on 11/01/2020 where he was seen and evaluated and diagnosed with possible food poisoning. He was able to be managed as an outpatient. However he had recurrent symptoms and was seen in the emergency department on 11/03/20. At that time he underwent CT scan which reveals multiple gallstones with possible pericholecystic fluid and edema. Gallbladder ultrasound was recommended. Patient's symptoms improved and he wished to follow-up as an outpatient. He was seen in his primary care provider's office after being seen in the emergency department and then sent for surgical evaluation. Patient was seen in the office yesterday. At that time he felt well. He had some minor discomfort to deep palpation in the right upper quadrant. Options were discussed with him. He wished to pursue cholecystectomy which was scheduled for the following day. Upon presentation for surgery on 10/12/20 patient stated that he felt very ill throughout the evening with fevers and significant pain. He did undergo ultrasound preoperatively which revealed findings of thick sludge and debris and stones with gallbladder wall thickening and small amount of pericholecystic fluid with normal common bile duct. Hospital Course Hospital Course: Patient was taken to the operating room. He did undergo successful laparoscopic cholecystectomy as well as repair of umbilical hernia. However, he was found to have a small to moderate sized umbilical hernia. Gallbladder revealed severe inflammation and thickening virtually resembling a phlegmon in the right upper quadrant with numerous gallstones. There were extensive acute and chronic adhesions to the gallbladder. He had significant fatty infiltration of the liver consistent with nonalcoholic fatty liver disease. Procedure duration was several hours. Given the degree of inflammation and duration of the procedure plan was made for admission overnight. Patient was continued on Unasyn postoperatively. He was given a clear liquid diet which he tolerated without difficulty. The following morning he was feeling well other than some abdominal soreness. Laboratory evaluation was checked and CBC was within normal limits. Comprehensive metabolic panel only revealed a slightly above normal AST. Arrangements were made for discharge home. Plan will be for 5 additional days of oral Augmentin given the degree of gallbladder inflammation. It was also explained to the patient that he could develop hernia recurrence given the size of his umbilical hernia necessitating primary repair without prosthetic mesh. Objective Vital signs: Temp Pulse Resp BP Pulse Ox 99.0 F 83 18 160/91 H 96 11/05/20 07:44 11/05/20 07:44 11/05/20 07:44 11/05/20 07:44 11/05/20 07:44 Results Labs on day of discharge: Labs from last 24 hours 11/05/20 11/05/20 06:48 06:48 WBC 9.5 RBC 4.10 L Hgb 12.4 L Hct 37.2 L MCV 90.9 MCH 30.2 MCHC 33.2 RDW 13.4 Plt Count 254 MPV 7.9 Neut % (Auto) 76.6 Lymph % (Auto) 15.6 [place] % (Auto) 7.5 Eos % (Auto) 0.2 Baso % (Auto) 0.2 Neut # (Auto) 7.3 Lymph # (Auto) 1.5 [place] # (Auto) 0.7 Eos # (Auto) 0.0 Baso # (Auto) 0.0 Sodium 138 Potassium 3.9 Chloride 106 Carbon Dioxide 27 Anion Gap 8.9 BUN 14
--- NOTE | 2020-11-05 09:34 | P.PN_ITS ---
Internal Medicine - PN: Subj *Date: 11/05/20 *Time: 09:34 Interval history: Patient did well overnight, no new issues. Exam Vital signs and Labs for Last 24 Hours: Temp Pulse Resp BP Pulse Ox 99.0 F 83 18 160/91 H 96 11/05/20 07:44 11/05/20 07:44 11/05/20 07:44 11/05/20 07:44 11/05/20 07:44 Laboratory Results - last 24 hr 11/05/20 06:48: WBC 9.5, RBC 4.10 L, Hgb 12.4 L, Hct 37.2 L, MCV 90.9, MCH 30.2, MCHC 33.2, RDW 13.4, Plt Count 254, MPV 7.9, Neut % (Auto) 76.6, Lymph % (Auto) 15.6, [place] % (Auto) 7.5, Eos % (Auto) 0.2, Baso % (Auto) 0.2, Neut # (Auto) 7.3, Lymph # (Auto) 1.5, [place] # (Auto) 0.7, Eos # (Auto) 0.0, Baso # (Auto) 0.0 11/05/20 06:48: Sodium 138, Potassium 3.9, Chloride 106, Carbon Dioxide 27, Anion Gap 8.9, BUN 14 D, Creatinine 0.70, Estimated Creat Clear 198, Estimated GFR 116, Est GFR ( Amer) 141, Glucose 110 H, Calcium 8.2 L, Total Bilirubin 0.9, AST 78 H D, ALT 68 D, Alkaline Phosphatase 59, Total Protein 6.6, Albumin 3.6, Globulin 3.0, Albumin/Globulin Ratio 1.2 I & O for Last 24 hours: Intake & Output 11/02/20 11/03/20 11/04/20 11/05/20 23:59 23:59 23:59 23:59 Intake Total 2423 / 2423 500 / 500 Output Total 950 / 950 500 / 500 Balance 1473 / 1473 0 / 0 Weight 271 lb 263 lb 8 oz 264 lb 7 oz - Constitutional no acute distress - *Routine Respiratory Exam Present: CTA bilaterally - *Routine Cardiovascular Exam Present: RRR Assessment and Plan (1) S/P cholecystectomy Status: Acute Category: Surgical Code(s): Z90.49 - Acquired absence of other specified parts of digestive tract (2) Cholecystitis Status: Acute Category: Medical Code(s): K81.9 - Cholecystitis, unspecified - Assessment and plan all Dx Assessment and Plan for all problems:: Doing well post op day #1, cont., routine care.
--- NOTE | 2020-11-05 12:56 | HMH.HP ---
*Admission Date: 11/04/20 *Chief complaint: Gallbladder *History of present illness: Patient is a 59-year-old male whom I had seen in the past previously for colonoscopy. He also had undergone hemorrhoid surgery. He has a known history of gallstones as he had some lower abdominal pain in the past and has CT scan revealing gallstones. This seemed to be asymptomatic and incidental at that time. However, recently he has had some symptoms consistent with possible gallbladder disease. Patient had eaten [place] food in [place], [place] and had developed epigastric pain with some associated nausea. He presented to the emergency department here at [facility] on 11/01/2020 where he was seen and evaluated and diagnosed with possible food poisoning. He was able to be managed as an outpatient. However he had recurrent symptoms and was seen in the emergency department on 11/03/20. At that time he underwent CT scan which reveals multiple gallstones with possible pericholecystic fluid and edema. Gallbladder ultrasound was recommended. Patient's symptoms improved and he wished to follow-up as an outpatient. He was seen in his primary care provider's office after being seen in the emergency department and then sent for surgical evaluation. Patient was seen in the office yesterday. At that time he felt well. He had some minor discomfort to deep palpation in the right upper quadrant. Options were discussed with him. He wished to pursue cholecystectomy which was scheduled for the following day. Upon presentation for surgery on 11/04/20 patient stated that he felt very ill throughout the evening with fevers and significant pain. He did undergo ultrasound preoperatively which revealed findings of thick sludge and debris and stones with gallbladder wall thickening and small amount of pericholecystic fluid with normal common bile duct. [facility] History I have reviewed the patient's past medical history: Yes Medical History: Reports:: Cancer (SKIN), Hypertension Denies:: Diabetes Mellitus Type 1, Diabetes Mellitus Type 2, Internal Pacemaker, MRSA, Seizures *Have you ever received a pneumonia vaccine?: No *Have you received a flu vaccine this season?: No Other Medical History: Reports: OtherComment Only: Blood Transfusion Reaction (NA) Anesthesia experience/problems:: BP issues Other Surgeries: Yes: Cancer Surgery, Colonoscopy, EGD. No: Pacemaker Amputation: No Fractures: Yes (BILATERAL WRIST) - *Social History Last grade of school completed: Some college Smoking Status: Never smoker Alcohol Intake: never Alcohol Intake Frequency:: other Substance Use Type: denies use *Occupational Status:: employed Housing: house Household Members: spouse *Travel in the last 8 weeks: None Family Hx:: Cancer, Hypertension Review of Systems - Review of Systems Review of systems:: pertinent systems reviewed and negative unless documented below Meds Home Medications Medication Instructions Recorded Confirmed Type losartan 100 mg tablet 100 mg PO DAILY 06/23/17 11/04/20 History allopurinol 300 mg tablet 300 mg PO DAILY tab 10/28/20 11/04/20 History fenofibric acid (choline) 135 mg 135 mg PO DAILY cap 10/28/20 11/04/20 History capsule,delayed release montelukast 10 mg tablet 10 mg PO DAILY tab 10/28/20 11/04/20 History Ondansetron [Zofran 4mg ODT] 4 mg PO TIDP PRN 3 Days #9 tab 11/01/20 11/04/20 Rx Cetirizine HCl [Allergy Relief] 10 mg PO DAILY 11/04/20 11/04/20 History Amoxicillin/Potassium Clav 1 tab PO Q12H #10 tab 11/05/20 Rx [Augmentin 875-125 Tablet] Hydrocod/Acet 5/325 mg [[place] 1 - 2 tab PO Q6HP PRN #21 tab 11/05/20 Rx 5/325mg tablet] Allergies Allergy/AdvReac Type Severity Reaction Status Date / Time No Known Allergies Allergy Unverified 11/03/20 14:29 Exam Vital signs and Labs for Last 24 Hours: Temp Pulse Resp BP Pulse Ox 99.0 F 83 18 160/91 H 96 11/05/20 07:44 11/05/20 07:44 11/05/20 07:44
--- NOTE | 2020-11-06 12:18 | HMH.ANESII ---
[facility] Anesthesia Record Part II Discharge Time: 14:20 Destination: floor PACU nurse assessment reviewed?: Yes Patient Condition:: Good Anesthesia Complications:: None Swallowing reflex intact?: Yes Cyanosis?: No Blood Pressure: 121/82 Pulse Rate: 96 Temperature: 98.9 F Mental Status: Alert & Oriented Pain level:: 3 Nausea and/or vomitting:: None Intake, IV Amount: 1,500
[2020-11-06 12:20] VITALS: BP 121/82; PULSE 96; TEMP 37.2
== END 2020-11-05 11:25 | disposition home or self-care (01) ==
LOC: 2ND 11:28
PROVIDERS: Admitting Provider Surgery; PCP Family Medicine; Visit Provider Surgery
PROC: 0FT44ZZ Resection of Gallbladder, Percutaneous Endoscopic Approach (ICD-10-PCS; CPT 47562; principal; 2020-11-04 09:50)
DX: K80.00 Calculus of gallbladder with acute cholecystitis without obstruction (principal); I10 Essential (primary) hypertension; Z87.891 Personal history of nicotine dependence; K42.9 Umbilical hernia without obstruction or gangrene; K76.0 Fatty (change of) liver, not elsewhere classified
CPT/HCPCS: 47562; 49585; 76705; 80053; 83036; 85025; 96372; 96374; G0378; J0131; J2405

== ENCOUNTER 2020-11-11 14:02 | Inpatient (IN) | payer OTHER, SELFPAY ==
[2020-11-11] VITALS (12 sets, daily range): BP systolic 129–151; BP diastolic 64–100; PULSE 71–83; RESP 16–18; TEMP 36.8–37.1; O2SAT 95–98; BMI 37.3; BMI 36.6
--- NOTE | 2020-11-11 14:37 | CT_ITS ---
PROCEDURE: CT ABDOMEN PELVIS W CON CLINICAL INDICATION: abd pain, recent choleycystectomy COMPARISON: CT ABDPELW/O CT ABD PELVIS W/O CONTRAST from 05/15/[address] ABDOMEN PELVIS W CON from 11/03/2020 TECHNIQUE: IV Contrast: 75ML Isovue 370 Oral Contrast None Axial images obtained with sagittal and coronal reformats. All CT scans at the facility use one or more dose reduction, viz: automated exposure control, ma/kV adjustment per patient size (including targeted exams where dose is matched to indication, i.e. head), or iterative reconstruction technique. FINDINGS: LOWER THORAX: Minimal atelectatic changes are present in the lung bases. ABDOMEN & PELVIS: There is diffuse fatty liver. No focal liver lesion is apparent. There has been an interval cholecystectomy. There is a small amount of fluid within the gallbladder fossa with mild stranding of the fat at this region. These findings may all be postsurgical in nature. No rim enhancement of the fluid collection and no internal gas. No significant biliary dilatation. The spleen, adrenal glands, pancreas, and kidneys have an unremarkable appearance. Small node is present posterior to the descending portion of the duodenum at approximately 12 x 10 mm. Small peripancreatic and periportal nodes are present. No intestinal obstruction or free air is evident. No evidence of diverticulitis or appendicitis. No abnormal fluid collections in the pelvis. There is some stranding of the fat in the periumbilical region consistent with recent surgery. There is also some stranding of the anterior abdominal wall fat laterally and anteriorly and may be due to recent trocar placement. There is an old coccyx fracture with mild dorsal displacement of the distal fracture fragment unchanged. Stable mixed lucent and sclerotic lesion of the right ilium. IMPRESSION: 1. Postsurgical changes from interval cholecystectomy. There is a small amount of fluid in the gallbladder fossa with mild stranding of the fat at this region. These findings may only be postsurgical in nature. One cannot exclude the possibility of an infected fluid collection or developing biloma based on CT appearance. Please correlate with clinical findings and consider short-term follow-up to confirm resolution of the fluid collection. 2. Postsurgical changes of the anterior abdominal wall Dictated by: Chicho Richardson MD 11/11/2020 15:57 Chicho Richardson MD in [place] 11/11/2020 15:57
[2020-11-11 14:43] LABS: Microscopic, Urine URINE MICROSCOPIC (MICROSCOPIC)
[2020-11-11 14:47] LABS: Basophils % 0.5 % (0.1-2.0); Eosinophils % 0.6 % (0.1-12.0); Hematocrit 41.5 % (42.0-52.0); Hemoglobin 14.4 g/dL (14.1-18.0); Lymphocytes # 0.9 K/mm3 (0.7-4.5); Lymphocytes % 15.6 % (10-50); Mean Corpuscular HGB Conc 34.7 g/dL (31.8-35.4); Mean Corpuscular Hemoglobin 31.3 pg (27.0-31.2); Monocytes # 0.3 K/mm3 (0.1-1.0); Monocytes % 6.1 % (1.7-9.3); Neutrophils # 4.4 K/mm3 (1.8-7.8); Neutrophils % 77.1 % (37.0-80.0); Platelet Count 386 K/mm3 (142-424); Red Blood Count 4.61 M/mm3 (4.60-6.20); Red Cell Distribution Width 13.3 % (11.5-17.5); White Blood Count 5.7 K/mm3 (4.8-10.8)
--- NOTE | 2020-11-11 14:54 | HMH.EDGENADL ---
ED Disposition Clinical Impression: Biliary obstruction, Hyperbilirubinemia Disposition: Admitted As Inpatient Condition on Discharge: Fair Time of Disposition: 15:10 - Critical Care Critical Care Time: No Attestation: On 11/11/20, the high probability of a clinically significant, sudden or life threatening deterioration of the following system(s) required my full and direct attention, intervention and personal management. The time I documented below is in addition to time spent performing reported procedures but includes the following listed in this critical care notation. Medical Decision Making - Medical Records Medical records reviewed: Yes: I reviewed the patient's medical records. - Chau Inquiry Pt receiving controlled substance: Yes Chau was queried for this patient: No (Patient is just postoperative and has postoperative pain medication) Risks and benefits of using a controlled substance: were discussed with pt by me Vital Signs: 11/11/20 14:03 11/11/20 15:00 11/11/20 16:24 Temperature 98.8 F Temperature Source Oral Pulse Rate 71 74 Pulse Rate [Left] 82 Respiratory Rate 16 18 18 Blood Pressure 135/88 137/64 Blood Pressure [Right Arm] 139/86 Blood Pressure Mean 97 Blood Pressure Mean [Right Arm] 103 Blood Pressure Source [Right Arm] Automatic Cuff Blood Pressure Position Sitting Blood Pressure Position [Right Arm] Sitting 02 Sat by Pulse Oximetry 97 96 98 Oxygen Delivery Method Room Air Room Air 11/11/20 16:30 11/11/20 17:01 11/11/20 19:20 Temperature Temperature Source Pulse Rate 75 75 77 Pulse Rate [Left] Respiratory Rate 18 18 Blood Pressure 150/86 H 151/100 H 132/88 Blood Pressure [Right Arm] Blood Pressure Mean 110 117 Blood Pressure Mean [Right Arm] Blood Pressure Source [Right Arm] Blood Pressure Position Blood Pressure Position [Right Arm] 02 Sat by Pulse Oximetry 98 96 95 Oxygen Delivery Method 11/11/20 19:30 11/11/20 20:00 Temperature Temperature Source Pulse Rate 75 83 Pulse Rate [Left] Respiratory Rate Blood Pressure 129/79 146/90 H Blood Pressure [Right Arm] Blood Pressure Mean Blood Pressure Mean [Right Arm] Blood Pressure Source [Right Arm] Blood Pressure Position Blood Pressure Position [Right Arm] 02 Sat by Pulse Oximetry 96 98 Oxygen Delivery Method - Lab Data Lab results reviewed: Yes: I reviewed the patient's lab results. Lab Results 11/11/20 14:26: Urine Color Yellow, Urine Appearance Clear, Urine pH 6.0, Ur Specific [place] 1.020, Urine Protein Negative, Urine Glucose (UA) Negative, Urine Ketones Negative, Urine Blood Trace-i, Urine Nitrate Negative, Urine Bilirubin 3+ A, Urine Urobilinogen 0.2, Ur Leukocyte Esterase Negative, Urine RBC Occasional, Urine WBC None, Ur Squamous Epith Cells None, Urine Bacteria None 11/11/20 14:26: WBC 5.7, RBC 4.61, Hgb 14.4, Hct 41.5 L, MCV 90.0, MCH 31.3 H, MCHC 34.7, RDW 13.3, Plt Count 386, MPV 8.0, Neut % (Auto) 77.1, Lymph % (Auto) 15.6, [place] % (Auto) 6.1, Eos % (Auto) 0.6, Baso % (Auto) 0.5, Neut # (Auto) 4.4, Lymph # (Auto) 0.9, [place] # (Auto) 0.3, Eos # (Auto) 0.0, Baso # (Auto) 0.0 11/11/20 14:26: Sodium 135 L, Potassium 3.8, Chloride 100, Carbon Dioxide 24, Anion Gap 14.8, BUN 15, Creatinine 0.70, Estimated Creat Clear 194, Estimated GFR 116, Est GFR ( Amer) 141, Glucose 145 H, Calcium 9.4, Total Bilirubin 10.1 H*, AST 453 H*, ALT 654 H*, Alkaline Phosphatase 251 H, Total Protein 8.4 H D, Albumin 4.5, Globulin 3.9 H, Albumin/Globulin Ratio 1.2, Amylase 48 11/11/20 14:26: Lipase 53 11/11/20 14:26: Ammonia 29 11/11/20 14:26: Total Bilirubin 9.7 H, Direct Bilirubin 8.0 H, Conjugated Bilirubin 5.9 H, Indirect Bilirubin 1.7 H, Unconjugated Bilirubin 1.7 H Result diagrams: 11/11/20 14:26 11/11/20 14:26 Orders (Tests/Meds): ED MEDICATIONS Generic Name Dose Route Start Last Admin Trade Name Freq PRN Reason Stop Dose Admin Lactated Rin
[2020-11-11 15:05] LABS: Chloride 100 mmol/L (98-107); Sodium 135 mmol/L (136-145)
[2020-11-11 15:06] LABS: Potassium 3.8 mmoL/L (3.5-5.1)
[2020-11-11 15:07] LABS: Lipase 53 U/L (23-300)
[2020-11-11 15:08] LABS: Alanine Aminotransferase 654 U/L (12-78); Albumin Level 4.5 g/dl (3.5-5.0); Albumin/Globulin Ratio 1.2 (1.1-1.8); Alkaline Phosphatase 251 U/L (38-126); Amylase 48 U/L (30-110); Anion Gap 14.8 mEq/L (5-15); Aspartate Amino Transferase 453 U/L (17-59); Bilirubin,Total 10.1 mg/dl (0.2-1.3); Blood Urea Nitrogen 15 mg/dl (9-20); Calcium 9.4 mg/dl (8.4-10.2); Carbon Dioxide 24 mmol/L (22.0-30.0); Creatinine Clearance Estimated 194 mL/min (50-200); Estimated Glomerular Filt Rate 116 ml/min (>60); GFR (African American) 141 ML/MIN (>60); Globulin 3.9 g/dL (1.3-3.2); Glucose 145 mg/dl (74-100); Total Protein,Serum 8.4 g/dl (6.3-8.2)
[2020-11-11 15:13] LABS: Appearance,Urine CLEAR (Clear); Blood, Urine TRACE-I (Negative); Color,Urine YELLOW (Yellow); Glucose,Urine (UA) Negative (Negative); Ketones,Urine Negative (Negative); Leukocyte Esterase,Urine Negative (Negative); Nitrate,Urine Negative (Negative); Protein,Urine Negative (Negative); Urobilinogen,Urine 0.2 EU/dl (0.2)
[2020-11-11 15:35] LABS: Ammonia 29 umol/L (9-30)
[2020-11-11 15:42] LABS: Bilirubin,Urine 3+ (Negative)
[2020-11-11 16:29] LABS: RBC,Urine Occasional #/hpf (0-3)
--- NOTE | 2020-11-11 16:53 | PC.NURSE ---
TUCKER HUANG speaking with Dr. Joy
--- NOTE | 2020-11-11 16:58 | PC.NURSE ---
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
--- NOTE | 2020-11-11 18:07 | PC.NURSE ---
lab states pt covid swab was just placed on the analyzer
--- NOTE | 2020-11-11 18:10 | PC.NURSE ---
per ER MD pt can have bland diet now and is to be NPO after midnight
--- NOTE | 2020-11-11 18:58 | HMH.GSHP ---
HPI HPI: Patient is a 59-year-old male with known gallstones. These had previously seemingly been asymptomatic. However, recently he has had some symptoms consistent with possible gallbladder disease. Patient had eaten [place] food in [place], [place] and had developed epigastric pain with some associated nausea. He presented to the emergency department here at [facility] on 11/01/2020 where he was seen and evaluated and diagnosed with possible food poisoning. He was able to be managed as an outpatient. However he had recurrent symptoms and was seen in the emergency department on 11/03/20. He underwent CT scan which revealed multiple gallstones with possible pericholecystic fluid and edema. He was seen in his primary care provider's office after being seen in the emergency department and sent for surgical evaluation. Patient was seen in the office on 11/03/20. At that time he felt well. He had some minor discomfort to deep palpation in the right upper quadrant. Options were discussed with him. He wished to pursue cholecystectomy which was scheduled for the following day. Upon presentation for surgery on 11/04/20 patient stated that he felt very ill throughout the evening with fevers and significant pain and he appeared somewhat ill. He did undergo ultrasound preoperatively which revealed findings of thick sludge and debris and stones with gallbladder wall thickening and small amount of pericholecystic fluid with normal common bile duct. He underwent laparoscopic cholecystectomy on 11/04/2020. He had a small to moderate sized umbilical hernia which was repaired at the time of surgery. Gallbladder was severely inflamed and thickened virtually resembling a phlegmon in the right upper quadrant with numerous small gallstones. He had significant fatty infiltration of the liver consistent with nonalcoholic fatty liver disease. His pathology did reveal severe acute necrotizing cholecystitis with numerous, at least 50, remaining residual stones with stones impacted in the neck of the gallbladder and cystic duct remnant. He was admitted for short inpatient stay. Initially he was doing well after surgery however he states that on postoperative day #4, 11/08/2020, he had developed midepigastric pain which occasionally radiated into his back. This was relieved with the oral narcotic medication. He did notice some darker urine. Denies any vomiting or other GI symptoms or fevers. The symptoms persisted for several days and he had some transient relief today on 11/11/2020. However, his symptoms recurred around midday today and he had contacted the office. Recommendations were for evaluation in the emergency department. He was seen and evaluated in the emergency department. He underwent CT scan which revealed findings of a small amount of fluid and stranding in the gallbladder fossa otherwise reportedly unremarkable. White blood cell count was normal. Most notable was bilirubin of 10.1 with some mild to moderate elevation of transaminases. [facility] History I have reviewed the patient's past medical history: Yes Medical History: Reports:: Cancer (SKIN), Hypertension Denies:: Diabetes Mellitus Type 1, Diabetes Mellitus Type 2, Internal Pacemaker, MRSA, Seizures *Have you ever received a pneumonia vaccine?: No *Have you received a flu vaccine this season?: Yes Other Medical History: Reports: OtherComment Only: Blood Transfusion Reaction (NA) Other Surgeries: Yes: Cancer Surgery, Colonoscopy, EGD. No: Pacemaker Amputation: No Fractures: Yes (BILATERAL WRIST) - *Social History Smoking Status: Never smoker Alcohol Intake: never Alcohol Intake Frequency:: other Substance Use Type: denies use *Occupational Status:: employed Housing: house Household Members: spouse *Travel in the last 8 weeks: None Family Hx:: Cancer, Hypertension Review of Systems - Review of Systems Review of systems:: pertinent systems reviewed and negative unless documented below - *Ne
[2020-11-11 19:24] LABS: Bilirubin, Conjugated 5.9 mg/dL (0.0-0.3); Bilirubin,Indirect 1.7 mg/dL (0.0-0.9); Bilirubin,Total 9.7 mg/dl (0.2-1.3); Bilirubin,Unconjugated 1.7 mg/dL (0.0-1.1)
--- NOTE | 2020-11-11 21:31 | PC.NURSE ---
patient up to floor via wheelchair.
--- NOTE | 2020-11-11 21:50 | PC.NURSE ---
ORDERS CANCELLED UPON TRANSFER BY MISTAKE; ORDERS RE-ENTERED REQUESTED BY .
--- NOTE | 2020-11-12 03:14 | PC.NURSE ---
A&OX4. TOLERATING RA WELL. PT HAS C/O UPPER ABD PAIN X1 THIS SHIFT, TX WITH PRN PERCOCET. ON REASSESSMENT PT RESTING IN BED. PT TOLERATING NPO DIET WELL. NO OTHER C/O THUS FAR, VSS WILL CONTINUE TO MONITOR.
[2020-11-12 04:00] VITALS: BP 133/77; PULSE 71; RESP 18; TEMP 36.8; O2SAT 96
[2020-11-12 05:11] VITALS: BMI 36.1
[2020-11-12 06:51] LABS: Basophils % 0.5 % (0.1-2.0); Eosinophils # 0.1 K/mm3 (0.0-0.4); Eosinophils % 1.5 % (0.1-12.0); Hematocrit 40.2 % (42.0-52.0); Hemoglobin 13.5 g/dL (14.1-18.0); Lymphocytes # 0.9 K/mm3 (0.7-4.5); Lymphocytes % 18.9 % (10-50); Mean Corpuscular HGB Conc 33.4 g/dL (31.8-35.4); Mean Corpuscular Hemoglobin 30.5 pg (27.0-31.2); Mean Corpuscular Volume 91.2 fl (80-94); Monocytes # 0.5 K/mm3 (0.1-1.0); Monocytes % 10.2 % (1.7-9.3); Neutrophils # 3.3 K/mm3 (1.8-7.8); Neutrophils % 68.7 % (37.0-80.0); Platelet Count 305 K/mm3 (142-424); Red Blood Count 4.41 M/mm3 (4.60-6.20); Red Cell Distribution Width 13.5 % (11.5-17.5); White Blood Count 4.8 K/mm3 (4.8-10.8)
[2020-11-12 07:13] LABS: Alanine Aminotransferase 504 U/L (12-78); Albumin Level 3.7 g/dl (3.5-5.0); Albumin/Globulin Ratio 1.1 (1.1-1.8); Alkaline Phosphatase 208 U/L (38-126); Amylase 40 U/L (30-110); Anion Gap 11.8 mEq/L (5-15); Aspartate Amino Transferase 315 U/L (17-59); Bilirubin,Total 8.7 mg/dl (0.2-1.3); Blood Urea Nitrogen 16 mg/dl (9-20); Calcium 8.9 mg/dl (8.4-10.2); Carbon Dioxide 26 mmol/L (22.0-30.0); Chloride 104 mmol/L (98-107); Creatinine Clearance Estimated 188 mL/min (50-200); Estimated Glomerular Filt Rate 116 ml/min (>60); GFR (African American) 141 ML/MIN (>60); Globulin 3.3 g/dL (1.3-3.2); Glucose 102 mg/dl (74-100); Lipase 50 U/L (23-300); Potassium 3.8 mmoL/L (3.5-5.1); Sodium 138 mmol/L (136-145)
--- NOTE | 2020-11-12 07:33 | HMH.PHAVTE ---
[facility] Pharmacy VTE Monitoring - Patient Demographics Admission date: 11/12/20 Report Date: 11/12/20 Time: 07:33 Allergies/Adverse Reactions: Patient Allergies No Known Allergies Allergy (Verified 11/11/20 17:13) Height: 1.78 m Weight: 114.334 kg Patient Problems: Current Active Problems Biliary obstruction (Acute) Hyperbilirubinemia (Acute) - VTE Risk Labs: VTE Related Lab Results Hgb 13.5 g/dL (14.1-18.0) L 11/12/20 06:16 Hct 40.2 % (42.0-52.0) L 11/12/20 06:16 Plt Count 305 K/mm3 (142-424) 11/12/20 06:16 BUN 16 mg/dl (9-20) 11/12/20 06:16 Creatinine 0.70 mg/dl (0.66-1.25) 11/12/20 06:16 Estimated Creat Clear 188 mL/min (50-200) 11/12/20 06:16 Clinical Trial Participant: No - Prophylaxis VTE Prophylaxis Ordered?: Yes Types of VTE Prophylaxis: TEDS Knee High
--- NOTE | 2020-11-12 07:35 | HMH.PHAINT ---
VERIFIED HOME MEDICATION LIST USING LIST FROM OUTPATIENT PHARMACY
--- NOTE | 2020-11-12 07:50 | HMH.GSPN ---
Subjective Narrative: Patient states that he feels well this morning without any abdominal pain whatsoever. Progress Note: A&P Assessment and Plan for All Diagnoses:: MRCP today. Probable ERCP in the near future. Exam Vital signs and Labs for Last 24 Hours: Temp Pulse Resp BP Pulse Ox 98.3 F 71 18 133/77 96 11/12/20 04:00 11/12/20 04:00 11/12/20 04:00 11/12/20 04:00 11/12/20 04:00 Laboratory Results - last 24 hr 11/11/20 14:26: Urine Color Yellow, Urine Appearance Clear, Urine pH 6.0, Ur Specific [place] 1.020, Urine Protein Negative, Urine Glucose (UA) Negative, Urine Ketones Negative, Urine Blood Trace-i, Urine Nitrate Negative, Urine Bilirubin 3+ A, Urine Urobilinogen 0.2, Ur Leukocyte Esterase Negative, Urine RBC Occasional, Urine WBC None, Ur Squamous Epith Cells None, Urine Bacteria None 11/11/20 14:26: WBC 5.7, RBC 4.61, Hgb 14.4, Hct 41.5 L, MCV 90.0, MCH 31.3 H, MCHC 34.7, RDW 13.3, Plt Count 386, MPV 8.0, Neut % (Auto) 77.1, Lymph % (Auto) 15.6, [place] % (Auto) 6.1, Eos % (Auto) 0.6, Baso % (Auto) 0.5, Neut # (Auto) 4.4, Lymph # (Auto) 0.9, [place] # (Auto) 0.3, Eos # (Auto) 0.0, Baso # (Auto) 0.0 11/11/20 14:26: Sodium 135 L, Potassium 3.8, Chloride 100, Carbon Dioxide 24, Anion Gap 14.8, BUN 15, Creatinine 0.70, Estimated Creat Clear 194, Estimated GFR 116, Est GFR ( Amer) 141, Glucose 145 H, Calcium 9.4, Total Bilirubin 10.1 H*, AST 453 H*, ALT 654 H*, Alkaline Phosphatase 251 H, Total Protein 8.4 H D, Albumin 4.5, Globulin 3.9 H, Albumin/Globulin Ratio 1.2, Amylase 48 11/11/20 14:26: Lipase 53 11/11/20 14:26: Ammonia 29 11/11/20 14:26: Total Bilirubin 9.7 H, Direct Bilirubin 8.0 H, Conjugated Bilirubin 5.9 H, Indirect Bilirubin 1.7 H, Unconjugated Bilirubin 1.7 H 11/12/20 06:16: WBC 4.8, RBC 4.41 L, Hgb 13.5 L, Hct 40.2 L, MCV 91.2, MCH 30.5, MCHC 33.4, RDW 13.5, Plt Count 305, MPV 8.0, Neut % (Auto) 68.7, Lymph % (Auto) 18.9, [place] % (Auto) 10.2 H, Eos % (Auto) 1.5, Baso % (Auto) 0.5, Neut # (Auto) 3.3, Lymph # (Auto) 0.9, [place] # (Auto) 0.5, Eos # (Auto) 0.1, Baso # (Auto) 0.0 11/12/20 06:16: Sodium 138, Potassium 3.8, Chloride 104, Carbon Dioxide 26, Anion Gap 11.8, BUN 16, Creatinine 0.70, Estimated Creat Clear 188, Estimated GFR 116, Est GFR ( Amer) 141, Glucose 102 H D, Calcium 8.9, Total Bilirubin 8.7 H, AST 315 H* D, ALT 504 H*, Alkaline Phosphatase 208 H, Total Protein 7.0, Albumin 3.7 D, Globulin 3.3 H, Albumin/Globulin Ratio 1.1, Amylase 40 D, Lipase 50 I & O for Last 24 hours: Intake & Output 11/09/20 11/10/20 11/11/20 11/12/20 11:59 11:59 11:59 11:59 Intake Total 1000 / 1000 Output Total 400 / 400 Balance 600 / 600 Weight 252 lb 1 oz Microbiology Reports for the Last 24 Hours: Microbiology 11/11/20 17:01 Nasopharyngeal Coronavirus COVID-19 PCR - Final - *Routine Abdominal Exam Present: soft
[2020-11-12 08:00] VITALS: BP 131/72; PULSE 70; RESP 18; TEMP 36.9; O2SAT 96
--- NOTE | 2020-11-12 09:00 | MR_ITS ---
PROCEDURE: MR ABDOMEN WO CON CLINICAL INDICATION: JAUNDICE, PAIN COMPARISON: No exams were available for comparison TECHNIQUE: Routine multiplanar multi echo sequences are performed without gadolinium enhancement. MRCP sequences also performed. FINDINGS: Status post cholecystectomy. Postsurgical changes are present from the previous cholecystectomy with a small fluid collection in the gallbladder fossa at 3 cm. This is not an unusual finding status post cholecystectomy. The spleen, pancreas, adrenal glands, and kidneys have an unremarkable appearance. MRCP images show normal caliber common bile duct and pancreatic duct. There is very minimal prominence the biliary radicles of questionable clinical significance. The common hepatic duct is actually thinner than expected at approximately 2 mm with the common bile duct measuring approximately 3 mm. The left hepatic duct measures approximately 4 mm in diameter. No obvious common duct stones. IMPRESSION: 1. Postsurgical changes from recent cholecystectomy. 2. No evidence of biliary ductal dilatation. No obvious common duct stones. 3. The common hepatic duct is small and uniform in nature with smooth akhtar. The right and left biliary radicles are slightly prominent appearing however, this appearance may only be related to the small caliber of the common hepatic duct.. One cannot exclude the possibility of a stricture at the biliary ductal confluence. ERCP may provide further evaluation. Dictated by: Chicho Richardson MD 11/12/2020 16:00 Chicho Richardson MD in [place] 11/12/2020 16:00
[2020-11-12 15:00] VITALS: BP 146/83; PULSE 71; RESP 18; TEMP 37; O2SAT 96
--- NOTE | 2020-11-12 18:22 | PC.NURSE ---
Pt has rested well this shift. Tolerate diet appropriately. Remains on RA. Active bowel sounds in all 4 quads, pt has no c/o abd pain, no . No other acute changes or complaints at this time. Will continue to monitor.
[2020-11-12 20:00] VITALS: BP 154/94; PULSE 62; RESP 17; TEMP 36.8; O2SAT 97
[2020-11-12 21:20] VITALS: BP 128/80
[2020-11-13 04:00] VITALS: BP 126/82; PULSE 64; RESP 18; TEMP 36.4; O2SAT 96
[2020-11-13 05:50] VITALS: BMI 36.6
--- NOTE | 2020-11-13 06:20 | PC.NURSE ---
No acute changes this shift. Pt denies any discomfort. Has slept at intervals this shift. VSS. Pt remains on RA. BS active. No BM this shift. Medications administered per aug. No other concerns at this time. Will continue to monitor.
--- NOTE | 2020-11-13 06:45 | HMH.GSPN ---
Subjective Narrative: The patient is currently asleep. He did have some difficulty falling asleep per nursing staff. Otherwise, he has been fine . Progress Note: A&P (1) Biliary obstruction Status: Acute (2) Hyperbilirubinemia Status: Acute Assessment and Plan for All Diagnoses:: He will be made NPO after midnight for ERCP tomorrow (Dr. Hitchcock) Exam Vital signs and Labs for Last 24 Hours: Temp Pulse Resp BP Pulse Ox 97.5 F L 64 18 126/82 96 11/13/20 04:00 11/13/20 04:00 11/13/20 04:00 11/13/20 04:00 11/13/20 04:00 Laboratory Results - last 24 hr 11/12/20 06:16: WBC 4.8, RBC 4.41 L, Hgb 13.5 L, Hct 40.2 L, MCV 91.2, MCH 30.5, MCHC 33.4, RDW 13.5, Plt Count 305, MPV 8.0, Neut % (Auto) 68.7, Lymph % (Auto) 18.9, [place] % (Auto) 10.2 H, Eos % (Auto) 1.5, Baso % (Auto) 0.5, Neut # (Auto) 3.3, Lymph # (Auto) 0.9, [place] # (Auto) 0.5, Eos # (Auto) 0.1, Baso # (Auto) 0.0 11/12/20 06:16: Sodium 138, Potassium 3.8, Chloride 104, Carbon Dioxide 26, Anion Gap 11.8, BUN 16, Creatinine 0.70, Estimated Creat Clear 188, Estimated GFR 116, Est GFR ( Amer) 141, Glucose 102 H D, Calcium 8.9, Total Bilirubin 8.7 H, AST 315 H* D, ALT 504 H*, Alkaline Phosphatase 208 H, Total Protein 7.0, Albumin 3.7 D, Globulin 3.3 H, Albumin/Globulin Ratio 1.1, Amylase 40 D, Lipase 50 I & O for Last 24 hours: Intake & Output 11/10/20 11/11/20 11/12/20 11/13/20 11:59 11:59 11:59 11:59 Intake Total 1000 / 1000 2684 / 2684 Output Total 400 / 400 1350 / 1350 Balance 600 / 600 1334 / 1334 Weight 252 lb 1 oz 256 lb 1 oz - Constitutional no acute distress Comments: Currently asleep - *Routine Respiratory Exam Absent: respiratory distress - *Routine Cardiovascular Exam Comments: Regular rate
[2020-11-13 07:16] LABS: Alanine Aminotransferase 376 U/L (12-78); Albumin Level 3.6 g/dl (3.5-5.0); Alkaline Phosphatase 194 U/L (38-126); Aspartate Amino Transferase 201 U/L (17-59); Bilirubin, Conjugated 1.3 mg/dL (0.0-0.3); Bilirubin,Direct 3.6 mg/dl (0.0-0.4); Bilirubin,Indirect 1.2 mg/dL (0.0-0.9); Bilirubin,Total 4.8 mg/dl (0.2-1.3); Bilirubin,Unconjugated 1.2 mg/dL (0.0-1.1); Total Protein,Serum 6.9 g/dl (6.3-8.2)
[2020-11-13 07:52] VITALS: BP 141/55; PULSE 61; RESP 18; TEMP 36.5; O2SAT 96
[2020-11-13 08:00] VITALS: O2SAT 96
[2020-11-13 15:05] VITALS: BP 124/76; PULSE 63; RESP 18; TEMP 36.9; O2SAT 97
[2020-11-13 20:00] VITALS: BP 129/72; PULSE 77; RESP 16; TEMP 36.8; O2SAT 96
[2020-11-14] VITALS (12 sets, daily range): BP systolic 117–140; BP diastolic 74–84; PULSE 61–68; RESP 14–18; TEMP 36.2–36.8; O2SAT 96–99
--- NOTE | 2020-11-14 05:51 | PC.NURSE ---
pt is AxOX4, has rested intermittently t/o shift, remains on room air, voiding without difficulty, has not had any complaints of pain this shift
--- NOTE | 2020-11-14 08:44 | HMH.GSPN ---
Subjective Patient reports: feels better Narrative: Patient not having any pain at this time. Progress Note: A&P (1) Biliary obstruction Status: Acute (2) Hyperbilirubinemia Status: Acute Assessment and Plan for All Diagnoses:: ERCP today Exam Vital signs and Labs for Last 24 Hours: Temp Pulse Resp BP Pulse Ox 97.9 F 62 17 131/81 96 11/14/20 03:32 11/14/20 03:32 11/14/20 03:32 11/14/20 03:32 11/14/20 03:32 I & O for Last 24 hours: Intake & Output 11/11/20 11/12/20 11/13/20 11/14/20 11:59 11:59 11:59 11:59 Intake Total 1000 / 1000 4603 / 4603 2715 / 2715 Output Total 400 / 400 1350 / 1350 1500 / 1500 Balance 600 / 600 3253 / 3253 1215 / 1215 Weight 252 lb 1 oz 256 lb 1 oz Narrative: No acute distress. Scleral icterus resolved. Abdomen benign
--- NOTE | 2020-11-14 12:56 | FL_ITS ---
PROCEDURE: FL ERCP CLINICAL INDICATION: gallstones COMPARISON: No exams were available for comparison FINDINGS: Fluoroscopy time: 1 minutes and 22 seconds. Images obtained during selective catheterization the common bile duct demonstrates a normal caliber common bile duct. There was no internal filling defects evident that would indicate common duct stone. Please correlate with fluoroscopic findings. Sphincterotomy was performed with no obvious biliary extravasation. IMPRESSION: Status post ERCP with normal caliber common bile duct with no obvious common duct stones on the images submitted and sphincterotomy performed. Dictated by: Chicho Richardson MD 11/14/2020 15:17 Chicho Richardson MD in [place] 11/14/2020 15:17
--- NOTE | 2020-11-14 13:02 | HMH.PROC ---
[place] Procedure Note Procedure Note:: ERCP procedure Report: Endoscopic retrograde cholangiopancreatography with biliary sphincterotomy, balloon extraction and cold biopsy Endoscopist: Griffin Hitchcock II, MD Referring Physician: William Joy MD/Anant Esteves MD Date of Procedure: November 14, 2020 Equipment: Olympus 180 side viewing endoscope duodenoscope Sedation: MAC sedation Indication: Mr. Waite is a 59-year-old gentleman with recent severe cholecystitis. He had cholecystectomy on November 04, 2020. The gallbladder was severely inflamed and there was some phlegmon and numerous small gallstones. He did have fatty infiltration of the liver with nonalcoholic fatty liver disease. His gallbladder pathology showed severe necrotizing cholecystitis with at least 50 residual gallstones some of which were impacted in the neck of the gallbladder and cystic duct remnant. On postoperative day 4 (November 08, 2020) he developed midepigastric abdominal pain that radiated into the back. He noticed darkened urine and some acholic stools. This persisted and he presented to the hospital on Wednesday, November 11, 2020. At that time, his total bilirubin was 10.1 with moderate elevation of his transaminases and alkaline phosphatase. The patient did have a CAT scan and later MRI. There was no evidence of any biliary ductal dilation. The patient's total bilirubin today was down to 4.8. His ALT was 376 and alkaline phosphatase 194. His C-reactive protein level was 17.0. ERCP is performed for clearance of the biliary tree. Procedure: Prior to the procedure, a history and physical exam was performed, and patient's medications and allergies were reviewed. The risks, benefits and alternatives of the sedation and procedure were discussed with the patient. All questions were answered and informed consent was obtained. The patient was brought to the fluoroscopic radiology room. Patient identification and proposed procedure were verified by the physician and the nurse. The patient was placed in a swimmer's position between left lateral decubitus and prone position and the scope was passed under direct vision. Throughout the procedure, the patient's blood pressure, pulse, and oxygen saturations were monitored continuously. The ERCP was accomplished without difficulty. The patient tolerated the procedure well. Findings: The side-viewing duodenal scope was passed directly into the upper esophagus and advanced to the second portion of the duodenum. There was some moderate chronic gastritis and biopsies were taken from the gastric lesser curvature to rule out H. pylori. The remainder of the esophagus and duodenum were normal. The ampulla was well visualized. The common bile duct was selectively cannulated. The cholangiogram did show a small 4 mm common bile duct with normal filling of the intrahepatic biliary system. The cystic duct stump was normal and the chris were in place with no cystic leak. There were no discernible filling defects noted throughout. There was some delayed drainage of contrast in bowel at the ampulla. This was felt to possibly be small sphincter of Oddi stricture or stenosis. A generous biliary sphincterotomy was performed. A sweeping balloon was placed at the top of the bifurcation hilum and swept through the biliary system once with the passage of bishop bile, contrast and minimal debris. The pancreatic duct was not cannulated intentionally. Impression: 1. 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 I do suspect that he most likely passed biliary stones. I would like to make sure that these liver chemistries returned to normal and that this does not represent intrahepatic cholestasis which is much less likely.
--- NOTE | 2020-11-14 13:36 | P.PN_ITS ---
[facility] Anesthesia Checklist - Patient Identification Patient Identification: Arm Band - Structural Data Admitted From: Inpatient Planned Operative Procedure/s: ercp Consent for Planned Operative Procedure(s) Verified: Yes Verified Documents: Surgical Consent, History and Physical - NPO Status Verified Time NPO: 00:00 - Additional verifications Anesthesia Reactions: No Hx Blood Transfusions: No Blood Transfusion Reaction: (NA) - Airway Assessment C-Spine Mobility Assessed: Yes (mp2) TMJ Mobility Assessed: Yes Dentition: Good Dentition - Neurological Assessment Level of Consciousness: Awake, Alert - Anesthesia Plan Anesthesia Risk discussed: Yes Anesthesia Plan: Verified ASA Class: III Anesthesia Type: MAC [facility] History I have reviewed the patient's past medical history: Yes Medical History: Reports:: Asthma, Cancer (SKIN), Hyperlipidemia, Hypertension Denies:: Diabetes Mellitus Type 1, Diabetes Mellitus Type 2, Internal Pacemaker, MRSA, Seizures *Have you ever received a pneumonia vaccine?: No *Have you received a flu vaccine this season?: Yes Other Medical History: Reports: OtherComment Only: Blood Transfusion Reaction (NA) Anesthesia experience/problems:: nac Other Surgeries: Yes: Cancer Surgery, Colonoscopy, EGD. No: Pacemaker Amputation: No Fractures: Yes (BILATERAL WRIST) - *Social History Smoking Status: Never smoker Alcohol Intake: never Alcohol Intake Frequency:: other Substance Use Type: denies use *Occupational Status:: employed Housing: house Household Members: spouse *Travel in the last 8 weeks: None Family Hx:: Cancer, Hypertension
--- NOTE | 2020-11-14 15:19 | HMH.DCSUM ---
General - General Admission date:: 11/11/20 Discharge date: 11/14/20 HPI HPI: Patient is a 59-year-old male who had undergone laparoscopic cholecystectomy on 11/04/2020 for severe acute necrotizing cholecystitis. He had numerous small gallstones present. He was actually observed overnight due to the severity of his gallbladder and discharged on 11/05/2020. He states that he had done relatively well for several days but then developed abdominal pain on 11/08/2020. This was in the epigastrium. It was quite severe. It had transiently resolved on the morning of 11/11/2020 but then recurred. He had contacted the office. Recommendations were for evaluation in the emergency department. He was seen and evaluated in the emergency department and work-up was most notable for significant hyperbilirubinemia with a bilirubin of 10. Arrangements were made for admission for inpatient management. Hospital Course Hospital Course: Patient was admitted for inpatient management. He was given a limited diet initially. He was started on antibiotics consisting of Zosyn to prevent cholangitis. Case was discussed with gastroenterology. The following morning on 11/12/2020 you underwent MRCP which revealed unremarkable common bile duct with no evidence of any common duct injury or obvious leak from the cystic duct. Patient's symptoms had dramatically improved and he had resolution of his abdominal pain. His bilirubin had shown some improvement to 4.8. Arrangements were made for ERCP while an inpatient. He underwent ERCP on 11/14/2020. He did have a sphincterotomy performed. It was felt that the patient had likely passed stone or had some degree of sphincter of Oddi dysfunction. Nonetheless, the patient was doing very clinically well and arrangements were made for discharge home. Recommendations by gastroenterology are for follow-up liver function tests. Objective Vital signs: Temp Pulse Resp BP Pulse Ox 97.2 F L 61 18 128/76 97 11/14/20 13:42 11/14/20 13:57 11/14/20 13:57 11/14/20 13:57 11/14/20 13:57 DS: Diagnosis - Discharge Diagnosis (1) Biliary obstruction Status: Acute (2) Hyperbilirubinemia Status: Acute Discharge Plan - Patient Discharge Instructions ACTIVITY: No heavy lifting DIET: advance to your usual diet Patient Instructions: Bilirubin, Total, DI for Endoscopic Retrograde Cholangiopancreatography, Magnetic Resonance Cholangiopancreatography - Follow up Plan Follow up with: William Joy MD [Staff Physician] - 11/24/20 Disposition: Home, Self-Care Condition at discharge:: Improved Home Medications: Home Medications Medication Instructions Recorded Confirmed Type losartan 100 mg tablet 100 mg PO DAILY 06/23/17 11/11/20 History allopurinol 300 mg tablet 300 mg PO DAILY tab 10/28/20 11/11/20 History fenofibric acid (choline) 135 mg 135 mg PO DAILY cap 10/28/20 11/11/20 History capsule,delayed release Ondansetron [Zofran 4mg ODT] 4 mg PO TIDP PRN 3 Days #9 tab 11/01/20 11/11/20 Rx Cetirizine HCl [Allergy Relief] 10 mg PO DAILY 11/04/20 11/11/20 History Hydrocod/Acet 5/325 mg [[place] 1 - 2 tab PO Q6HP PRN #21 tab 11/05/20 11/11/20 Rx 5/325mg tablet] Montelukast Sodium [Singulair 10mg 10 mg PO PM 11/12/20 11/12/20 History tablet] Prescriptions/Medication Reconciliation: Continued losartan 100 mg tablet 100 mg PO DAILY allopurinol 300 mg tablet 300 mg PO DAILY tab fenofibric acid (choline) 135 mg capsule,delayed release 135 mg PO DAILY cap Cetirizine HCl [Allergy Relief] 10 mg PO DAILY Ondansetron [Zofran 4mg ODT] 4 mg PO TIDP PRN 3 Days #9 tab PRN Reason: Nausea Hydrocod/Acet 5/325 mg [[place] 5/325mg tablet] 1 - 2 tab PO Q6HP PRN #21 tab PRN Reason: Moderate Pain Montelukast Sodium [Singulair 10mg tablet] 10 mg PO PM - Problem Reconciliation Problems Reviewed?: Yes
== END 2020-11-14 16:00 | disposition home or self-care (01) | DRG 446 ==
LOC: ER 14:21 → 2ND 20:19
PROVIDERS: Internal Medicine Gastroenterology; Admitting Provider Surgery; Emergency Provider Emergency Medicine; PCP Family Medicine; Visit Provider Surgery
PROC: 0F798ZZ Dilation of Common Bile Duct, Via Natural or Artificial Opening Endoscopic (ICD-10-PCS; principal; 2020-11-14 12:00)
DX: K83.1 Obstruction of bile duct (principal); E80.6 Other disorders of bilirubin metabolism; I10 Essential (primary) hypertension
CPT/HCPCS: 43262; 43264; 43261; 74177; 74181; 74330; 76376; 80053; 80076; 81001; 82140; 82150; 82247; 82248; 83690; 85025; 96365; 96366; 99284; J2543; Q9967; U0003

== ENCOUNTER → 2020-11-24 10:07 | Outpatient (CLI) | payer OTHER, SELFPAY ==
[2020-11-24 10:19] LABS: Basophils % 0.7 % (0.1-2.0); Eosinophils # 0.1 K/mm3 (0.0-0.4); Eosinophils % 2.4 % (0.1-12.0); Hematocrit 42.4 % (42.0-52.0); Hemoglobin 14.2 g/dL (14.1-18.0); Lymphocytes % 35.3 % (10-50); Mean Corpuscular HGB Conc 33.6 g/dL (31.8-35.4); Mean Corpuscular Hemoglobin 30.4 pg (27.0-31.2); Mean Corpuscular Volume 90.6 fl (80-94); Mean Platelet Volume 8.3 fl (7.4-10.4); Monocytes # 0.4 K/mm3 (0.1-1.0); Monocytes % 6.3 % (1.7-9.3); Neutrophils # 3.1 K/mm3 (1.8-7.8); Neutrophils % 55.3 % (37.0-80.0); Platelet Count 255 K/mm3 (142-424); Red Blood Count 4.68 M/mm3 (4.60-6.20); Red Cell Distribution Width 13.5 % (11.5-17.5); White Blood Count 5.5 K/mm3 (4.8-10.8)
[2020-11-24 11:04] LABS: Chloride 106 mmol/L (98-107); Potassium 4.4 mmoL/L (3.5-5.1); Sodium 136 mmol/L (136-145)
[2020-11-24 11:07] LABS: Alanine Aminotransferase 70 U/L (12-78); Albumin Level 4.4 g/dl (3.5-5.0); Albumin/Globulin Ratio 1.6 (1.1-1.8); Alkaline Phosphatase 126 U/L (38-126); Anion Gap 14.4 mEq/L (5-15); Aspartate Amino Transferase 48 U/L (17-59); Bilirubin,Total 1.3 mg/dl (0.2-1.3); Blood Urea Nitrogen 17 mg/dl (9-20); Calcium 9.3 mg/dl (8.4-10.2); Carbon Dioxide 20 mmol/L (22.0-30.0); Estimated Glomerular Filt Rate 139 ml/min (>60); GFR (African American) 168 ML/MIN (>60); Globulin 2.8 g/dL (1.3-3.2); Glucose 99 mg/dl (74-100); Total Protein,Serum 7.2 g/dl (6.3-8.2)
== END ==
PROVIDERS: Visit Provider Surgery
DX: Z90.49 Acquired absence of other specified parts of digestive tract (principal)
CPT/HCPCS: 36415; 80053; 85025

== ENCOUNTER → 2021-01-26 10:18 | Outpatient (CLI) | payer OTHER, SELFPAY ==
[2021-01-26 11:38] LABS: Alanine Aminotransferase 35 U/L (12-78); Albumin Level 4.4 g/dl (3.5-5.0); Albumin/Globulin Ratio 1.5 (1.1-1.8); Alkaline Phosphatase 86 U/L (38-126); Anion Gap 15.7 mEq/L (5-15); Aspartate Amino Transferase 44 U/L (17-59); Bilirubin,Total 0.8 mg/dl (0.2-1.3); Blood Urea Nitrogen 23 mg/dl (9-20); Calcium 8.9 mg/dl (8.4-10.2); Carbon Dioxide 27 mmol/L (22.0-30.0); Chloride 103 mmol/L (98-107); Chol/HDL Ratio 3.5 (1-3.5); Cholesterol 164 mg/dl (140-200); Estimated Glomerular Filt Rate 116 ml/min (>60); GFR (African American) 140 ML/MIN (>60); Glucose 105 mg/dl (74-100); HDL Cholesterol 47 mg/dl (40-60); Potassium 4.7 mmoL/L (3.5-5.1); Sodium 141 mmol/L (136-145); Total Protein,Serum 7.4 g/dl (6.3-8.2); Triglycerides 93 mg/dl (30-150); Uric Acid 4.8 mg/dl (3.5-8.5); VLDL Cholesterol 19 mg/dL (0-40)
[2021-01-26 11:54] LABS: Direct LDL Cholesterol 100.11 mg/dL (100-129)
[2021-01-26 12:01] LABS: Hemoglobin A1C 5.6 % (4.0-6.0)
[2021-01-26 12:08] LABS: Thyroid Stimulating Hormone 1.32 uIU/mL (0.465-4.68)
== END ==
PROVIDERS: Visit Provider Family Medicine
DX: I10 Essential (primary) hypertension (principal); R73.01 Impaired fasting glucose; E78.2 Mixed hyperlipidemia; M10.9 Gout, unspecified
CPT/HCPCS: 36415; 80053; 80061; 83036; 84443; 84550

== ENCOUNTER 2021-02-07 12:41 | Emergency (ER) | payer OTHER, SELFPAY ==
[2021-02-07 16:01] VITALS: BP 0/0; PULSE 0; RESP 0; TEMP -17.7; TEMP 0
== END 2021-02-07 16:02 | disposition left against medical advice (07) ==
LOC: UTC 12:44
PROVIDERS: Emergency Provider Nurse Practitioner Family; PCP Family Medicine
DX: Z53.21 Procedure and treatment not carried out due to patient leaving prior to being seen by health care provider (principal)

== ENCOUNTER 2021-02-07 16:59 | Emergency (ER) | payer OTHER, SELFPAY ==
[2021-02-07 17:51] VITALS: BP 142/94; PULSE 70; RESP 14; TEMP 36.8; O2SAT 98; BMI 38.7
[2021-02-07 17:55] VITALS: BP 142/94; PULSE 70; RESP 14; TEMP 36.6
--- NOTE | 2021-02-07 17:59 | HMH.EDUTC ---
[facility] [place] Clinical Impression: Exposure to COVID-19 virus Disposition: Home, Self-Care Condition on Discharge: Good Instructions: DI for COVID-19 (Suspected or Confirmed ), Preventing the Spread of Coronavirus Discharge Instructions Additional Instructions: Drink plenty of fluids. Take tylenol for pain or fever. Return if you begin to have difficulty breathing. Follow up with your regular doctor. GO TO THE ER FOR ANY WORSENING SYMPTOMS Quarantine until you know the results of your covid-19 test. If it is positive, the health department should call you and give you further instructions about your length of Quarantine and other things. Notify your school or workplace of your results and follow their instructions regarding return to work/school. Referrals: Anant Esteves MD [Primary Care Provider] - Time of Disposition: 18:02 Medical Decision Making - Medical Records Medical records reviewed: No: I reviewed the patient's medical records. - Chau Inquiry Pt receiving controlled substance: No Vital Signs: 02/07/21 17:51 02/07/21 17:55 Temperature 98.2 F 98 F Temperature Source Oral Pulse Rate 70 Pulse Rate [Left] 70 Respiratory Rate 14 14 Blood Pressure 142/94 H Blood Pressure [Right Arm] 142/94 H Blood Pressure Mean [Right Arm] 110 02 Sat by Pulse Oximetry 98 [facility] [place] - General Stated complaint: covid test Time Seen by Provider: 02/07/21 17:59 Mode of Arrival: Ambulatory Source of Information: Patient Limitations: No Limitations Description of Symptoms (Recalled from Triage Doc. by RN): PT DIRECTLY EXPOSED TO COVID. PT IS ASYMPTOMATIC. HEENT Symptoms (Recalled from RN notes): No Resp Symptoms (Recalled from RN notes): No Skin Symptoms (Recalled from RN notes): No MS Symptoms (Recalled from RN notes): No Functional Status (Recalled from RN notes): NA - History of Present Illness Provider Complaint: He was exposed to covid-19 at his job. He denies any symptoms, but everyone that got exposed was sent for a test. - Related Data Home Medications Medication Instructions Recorded Confirmed losartan 100 mg tablet 100 mg PO DAILY 06/23/17 01/15/21 allopurinol 300 mg tablet 300 mg PO DAILY tab 10/28/20 01/15/21 fenofibric acid (choline) 135 mg 135 mg PO DAILY cap 10/28/20 01/15/21 capsule,delayed release RX: Cetirizine HCl [Allergy Relief] 10 mg PO DAILY 11/04/20 01/15/21 RX: Montelukast Sodium [Singulair 10 mg PO PM 11/12/20 01/15/21 10mg tablet] Previous Rx's Medication Instructions Recorded RX: Ondansetron [Zofran 4mg 4 mg PO TIDP PRN 3 Days #9 tab 11/01/20 ODT] Allergies Allergy/AdvReac Type Severity Reaction Status Date / Time No Known Allergies Allergy Verified 01/15/21 09:17 - Worker's Comp Is this a Worker's Comp case?: No [facility] History - Hepatitis A Screen Drug use history?: No High risk sexual behaviors?: No History of sexually transmitted infection?: No Currently employed?: No Childcare worker?: No Do you have indoor plumbing?: Yes Do you have electricity?: Yes Attestation statement:: This patient has been screened for Hepatitis A risk factors. I have reviewed the patient's past medical history: Yes Medical History: Reports:: Asthma, Cancer, Hyperlipidemia, Hypertension Denies:: Diabetes Mellitus Type 1, Diabetes Mellitus Type 2, Internal Pacemaker, MRSA, Seizures Other Medical History: Reports: OtherComment Only: Blood Transfusion Reaction (NA) Other Surgeries: Yes: Cancer Surgery, Cholecystectomy, Colonoscopy, EGD, Skin Cancer Excision. No: Pacemaker Amputation: No Fractures: Yes (BILATERAL WRIST) Comment: Right hand - Social History Smoking Status: Never smoker Alcohol Intake: never Alcohol Intake Frequency:: other Substance Use Type: denies use Occupational Status: employed Housing: house Household Members: spouse Family Hx:: Cancer, Hypertension ROS Obtained: Yes All systems reviewed & no add
== END 2021-02-07 18:28 | disposition home or self-care (01) ==
PROVIDERS: Emergency Provider Nurse Practitioner Family; PCP Family Medicine
DX: Z20.822 Contact with and (suspected) exposure to COVID-19 (principal)
CPT/HCPCS: 99202; G0463; U0003

== ENCOUNTER → 2021-03-23 09:30 | Outpatient (CLI) | payer OTHER, SELFPAY | PROVIDERS: Visit Provider Surgery | DX: Z01.812 Encounter for preprocedural laboratory examination (principal); Z11.52 Encounter for screening for COVID-19; Z12.11 Encounter for screening for malignant neoplasm of colon | CPT/HCPCS: C9803; U0003; U0005 ==

== ENCOUNTER 2021-03-25 06:21 | Day surgery (SDC) | payer OTHER, SELFPAY ==
[2021-03-19 13:28] VITALS: BMI 38.5
[2021-03-25 06:46] VITALS: BP 126/73; PULSE 75; RESP 18; TEMP 36.8; O2SAT 98
[2021-03-25 07:20] VITALS: O2SAT 98
--- NOTE | 2021-03-25 07:20 | P.PN_ITS ---
[facility] Anesthesia Checklist - Patient Identification Patient Identification: Arm Band - Structural Data Admitted From: Home Planned Operative Procedure/s: colonoscopy Consent for Planned Operative Procedure(s) Verified: Yes Verified Documents: Surgical Consent, History and Physical - NPO Status Verified Time NPO: 00:00 - Additional verifications Anesthesia Reactions: No Hx Blood Transfusions: No Blood Transfusion Reaction: (NA) - Airway Assessment C-Spine Mobility Assessed: Yes (mp2) TMJ Mobility Assessed: Yes Dentition: Good Dentition - Neurological Assessment Level of Consciousness: Awake, Alert - Anesthesia Plan Anesthesia Risk discussed: Yes Anesthesia Plan: Verified ASA Class: II Anesthesia Type: MAC [facility] History I have reviewed the patient's past medical history: Yes Medical History: Reports:: Asthma, Cancer, Hyperlipidemia, Hypertension Denies:: Diabetes Mellitus Type 1, Diabetes Mellitus Type 2, Internal Pacemaker, MRSA, Seizures *Have you ever received a pneumonia vaccine?: No *Have you received a flu vaccine this season?: No Other Medical History: Reports: OtherComment Only: Blood Transfusion Reaction (NA) Anesthesia experience/problems:: nac Other Surgeries: Yes: Cancer Surgery, Cholecystectomy, Colonoscopy, EGD, Skin Cancer Excision. No: Pacemaker Amputation: No Fractures: Yes (BILATERAL WRIST) - *Social History Smoking Status: Never smoker Alcohol Intake: never Alcohol Intake Frequency:: other Substance Use Type: denies use *Occupational Status:: employed Housing: house Household Members: spouse *Travel in the last 8 weeks: None Family Hx:: Cancer, Hypertension
--- NOTE | 2021-03-25 08:03 | P.PCN_ITS ---
- Procedure: Date: 03/25/21 Patient Date of :: 1960 Procedure Performed:: Total colonoscopy to terminal ileum with polypectomy by snare x5 Indications:: Patient presents for colonoscopy. He had undergone colonoscopy on 12/03/2014 and had an ascending colon tubular adenoma removed by snare. Several months ago he had been treated for severe acute cholecystitis and actually had symptoms of choledocholithiasis postoperatively. He is doing well at this time with no issues. Performing Provider:: William Joy MD Referring Provider:: Anant Esteves MD Sedation:: MAC sedation Procedure:: Patient was taken to endoscopy procedure room. He was positioned in a lateral decubitus position. Adequate intravenous sedation was achieved with anesthesia titration of propofol. Variable stiffness Olympus colonoscope was inserted via the anus. It was advanced to the cecum. He did have some minor floppiness and redundancy of the sigmoid colon. Ileocecal valve and appendiceal orifice were clearly identified. Colonoscope was advanced a short distance into the terminal ileum which appeared grossly normal. Within the cecum there was a moderate a denomatous appearing polyp measuring about 8 to 10 mm removed with cold snare in a piecemeal fashion. Colonoscope was slowly withdrawn through the colon with careful surveillance. At the hepatic flexure there were 3 adenomatous appearing polyps of various sizes removed with cold snare. In the descending colon there was a moderate adenomatous appearing polyp measuring 8 to 10 mm removed with col d snare. Retroflexion within the rectum revealed no evidence of any pathologic internal hemorrhoids. Colonoscope was withdrawn. Findings:: Polyp x5, 2 of which measured up to 8 to 10 mm Recommendations:: Follow-up colonoscopy pending pathology but likely 2 to 3-year repeat colonoscopy Complications:: None immediately apparent Estimated blood obtained (mL): 3
[2021-03-25 08:05] VITALS: BP 107/66; PULSE 64; RESP 18; TEMP 36.3; O2SAT 96
[2021-03-25 08:15] VITALS: BP 106/68; PULSE 60; RESP 18; O2SAT 97
[2021-03-25 08:24] VITALS: BP 115/67; PULSE 60; RESP 18; O2SAT 96
[2021-03-25 08:30] VITALS: BP 107/69; PULSE 60; RESP 18; O2SAT 96
== END 2021-03-25 08:31 | disposition home or self-care (01) ==
LOC: OUTP 06:22
PROVIDERS: PCP Family Medicine; Visit Provider Surgery
PROC: 0DJD8ZZ Inspection of Lower Intestinal Tract, Via Natural or Artificial Opening Endoscopic (ICD-10-PCS; CPT 45385; principal; 2021-03-25 07:30)
DX: Z12.11 Encounter for screening for malignant neoplasm of colon (principal); Z86.010 Personal history of colon polyps; K63.5 Polyp of colon; J45.909 Unspecified asthma, uncomplicated; E78.5 Hyperlipidemia, unspecified; I10 Essential (primary) hypertension; Z85.9 Personal history of malignant neoplasm, unspecified; Z90.49 Acquired absence of other specified parts of digestive tract; Z79.899 Other long term (current) drug therapy
CPT/HCPCS: 45385; J2704

== ENCOUNTER → 2021-06-12 14:53 | Outpatient (CLI) | payer OTHER, SELFPAY | PROVIDERS: Visit Provider Nurse Practitioner Family | DX: U07.1 COVID-19 (principal) | CPT/HCPCS: C9803; U0003; U0005 ==

== ENCOUNTER → 2021-08-03 12:32 | Outpatient (CLI) | payer OTHER, SELFPAY | PROVIDERS: PCP Family Medicine; Visit Provider Family Medicine | DX: G47.33 Obstructive sleep apnea (adult) (pediatric) (principal); R06.83 Snoring; I10 Essential (primary) hypertension; E66.01 Morbid (severe) obesity due to excess calories; Z68.38 Body mass index [BMI] 38.0-38.9, adult | CPT/HCPCS: 95806 ==

== ENCOUNTER 2021-08-30 07:49 | Emergency (ER) | payer OTHER, SELFPAY ==
[2021-08-30 07:57] VITALS: BP 145/83; PULSE 87; RESP 17; TEMP 37.1; O2SAT 95; BMI 40.6
--- NOTE | 2021-08-30 08:00 | HMH.EDGENADL ---
ED Disposition Clinical Impression: Gastroenteritis Dyspnea Qualifiers: Dyspnea type: shortness of breath Qualified Code(s): R06.02 - Shortness of breath Disposition: Home, Self-Care Condition on Discharge: Good Instructions: DI for Diarrhea and Traveler's Diarrhea -- Adult, DI for Nausea -- Adult, DI for Shortness of Breath Additional Instructions: Zofran as needed for nausea/vomiting. Collect a diarrhea sample using the provided supplies and return it along with the order form to ER registration at [facility] for testing. Obtain the results of this test from your primary care provider the next day. Additional instructions for VOMITING/DIARRHEA: See your physician as soon as possible for further evaluation. Return immediately if severe abdominal pain, uncontrollable vomiting, shortness of breath, fever, vomiting of blood or abdominal distention. Additional instructions for SHORTNESS OF BREATH: See your physician as soon as possible for further evaluation. Return immediately if worsening shortness of breath or if vomiting, chest pain, fever, coughing of blood, or passing out. Prescriptions: Ondansetron [Zofran 4mg ODT] 4 mg PO TIDP PRN #10 tab PRN Reason: Nausea And Vomiting Transmission Status: Pending to [id number] Referrals: Anant Esteves MD [Primary Care Provider] - - Critical Care Critical Care Time: No Attestation: On 08/30/21, the high probability of a clinically significant, sudden or life threatening deterioration of the following system(s) required my full and direct attention, intervention and personal management. The time I documented below is in addition to time spent performing reported procedures but includes the following listed in this critical care notation. Medical Decision Making - Chau Inquiry Pt receiving controlled substance: No Vital Signs: 08/30/21 07:57 08/30/21 08:40 Temperature 98.7 F Temperature Source Oral Pulse Rate 89 Pulse Rate [Left Radial] 87 Respiratory Rate 17 18 Blood Pressure 136/87 Blood Pressure [Right Arm] 145/83 H Blood Pressure Mean 101 Blood Pressure Mean [Right Arm] 103 02 Sat by Pulse Oximetry 95 96 Oxygen Delivery Method Room Air - Lab Data Lab Results 08/30/21 08:02: WBC 12.9 H, RBC 5.26, Hgb 16.3, Hct 49.4, MCV 94.0, MCH 30.9, MCHC 32.9, RDW 13.5, Plt Count 293, MPV 8.6, Neut % (Auto) 88.6 H, Lymph % (Auto) 6.0 L, [place] % (Auto) 4.4, Eos % (Auto) 0.8, Baso % (Auto) 0.2, Neut # (Auto) 11.5 H, Lymph # (Auto) 0.8, [place] # (Auto) 0.6, Eos # (Auto) 0.1, Baso # (Auto) 0.0 08/30/21 08:02: Sodium 137, Potassium 4.1, Chloride 105, Carbon Dioxide 22, Anion Gap 14.1, BUN 26 H, Creatinine 0.60 L, Estimated Creat Clear 237, Estimated GFR 138, Est GFR ( Amer) 167, Glucose 148 H, Calcium 8.9, Total Bilirubin 0.8, AST 67 H, ALT 63, Alkaline Phosphatase 96, Total Protein 7.6, Albumin 4.6, Globulin 3.0, Albumin/Globulin Ratio 1.5 08/30/21 08:02: SARS-CoV-2 (PCR) Not detected, Influenza A Untype (PCR) Not detected, Influenza Type B (PCR) Not detected 08/30/21 08:04: Troponin I < 0.01, NT-Pro-B Natriuret Pep 25.6 08/30/21 08:19: Urine Color Yellow, Urine Appearance Clear, Urine pH 7.5, Ur Specific [place] 1.015, Urine Protein Negative, Urine Glucose (UA) Negative, Urine Ketones Negative, Urine Blood Negative, Urine Nitrate Negative, Urine Bilirubin Negative, Urine Urobilinogen 0.2, Ur Leukocyte Esterase Negative Result diagrams: 08/30/21 08:02 08/30/21 08:02 Orders (Tests/Meds): ED MEDICATIONS Generic Name Dose Route Start Last Admin Trade Name Freq PRN Reason Stop Dose Admin Sodium Chloride 10 ml 08/30/21 08:09 Sodium Chloride 0.9% 10ml Flush Syringe IV 09/29/21 08:08 NEEDED PRN Maintain IV Site Discontinued Medications Generic Name Dose Route Start Last Admin Trade Name Freq PRN Reason Stop Dose Admin Sodium Chloride 1,000 mls @ 999 mls/hr 08/30/21 08:15 Sod Chlor 0.9% 1000ml Bag IV 0
--- NOTE | 2021-08-30 08:07 | PC.NURSE ---
Pt in room. Labs, swab and iv obtained
--- NOTE | 2021-08-30 08:12 | PC.NURSE ---
Pt to the restroom to get a urine sample
[2021-08-30 08:13] LABS: Coronavirus 19, PCR Not Detected (NotDetected); Influenza A, PCR Not Detected (NotDetected); Influenza B, PCR Not Detected (NotDetected)
[2021-08-30 08:21] LABS: Microscopic, Urine URINE MICROSCOPIC (MICROSCOPIC)
--- NOTE | 2021-08-30 08:21 | XR_ITS ---
PROCEDURE INFORMATION: Exam: XR Chest Exam date and time: 08/30/2021 8:50 AM Age: 60 years old Clinical indication: Shortness of breath; Additional info: SOA TECHNIQUE: Imaging protocol: XR of the chest. Views: 2 views. COMPARISON: CR XR CHEST 2V 03/11/2019 9:23 AM FINDINGS: Lungs: Unremarkable. No consolidation. Pleural spaces: Unremarkable. No pleural effusion. No pneumothorax. Heart/Mediastinum: Borderline heart size. Bones/joints: Unremarkable. IMPRESSION: 1. No acute pathology. 2. Borderline heart size.
[2021-08-30 08:25] LABS: Alanine Aminotransferase 63 U/L (12-78); Albumin Level 4.6 g/dl (3.5-5.0); Albumin/Globulin Ratio 1.5 (1.1-1.8); Alkaline Phosphatase 96 U/L (38-126); Anion Gap 14.1 mEq/L (5-15); Aspartate Amino Transferase 67 U/L (17-59); Bilirubin,Total 0.8 mg/dl (0.2-1.3); Blood Urea Nitrogen 26 mg/dl (9-20); Calcium 8.9 mg/dl (8.4-10.2); Carbon Dioxide 22 mmol/L (22.0-30.0); Chloride 105 mmol/L (98-107); Creatinine Clearance Estimated 237 mL/min (50-200); Estimated Glomerular Filt Rate 138 ml/min (>60); GFR (African American) 167 ML/MIN (>60); Glucose 148 mg/dl (74-100); Potassium 4.1 mmoL/L (3.5-5.1); Sodium 137 mmol/L (136-145); Total Protein,Serum 7.6 g/dl (6.3-8.2)
[2021-08-30 08:26] LABS: Appearance,Urine CLEAR (Clear); Bilirubin,Urine Negative (Negative); Blood, Urine Negative (Negative); Color,Urine YELLOW (Yellow); Glucose,Urine (UA) Negative (Negative); Ketones,Urine Negative (Negative); Leukocyte Esterase,Urine Negative (Negative); Nitrate,Urine Negative (Negative); PH,Urine 7.5 (5.0-8.5); Protein,Urine Negative (Negative); Specific Gravity, Urine 1.015 (1.005-1.030); Urobilinogen,Urine 0.2 EU/dl (0.2)
[2021-08-30 08:26] LABS: Basophils % 0.2 % (0.1-2.0); Eosinophils # 0.1 K/mm3 (0.0-0.4); Eosinophils % 0.8 % (0.1-12.0); Hematocrit 49.4 % (42.0-52.0); Hemoglobin 16.3 g/dL (14.1-18.0); Lymphocytes # 0.8 K/mm3 (0.7-4.5); Mean Corpuscular HGB Conc 32.9 g/dL (31.8-35.4); Mean Corpuscular Hemoglobin 30.9 pg (27.0-31.2); Mean Platelet Volume 8.6 fl (7.4-10.4); Monocytes # 0.6 K/mm3 (0.1-1.0); Monocytes % 4.4 % (1.7-9.3); Neutrophils # 11.5 K/mm3 (1.8-7.8); Neutrophils % 88.6 % (37.0-80.0); Platelet Count 293 K/mm3 (142-424); Red Blood Count 5.26 M/mm3 (4.60-6.20); Red Cell Distribution Width 13.5 % (11.5-17.5); White Blood Count 12.9 K/mm3 (4.8-10.8)
[2021-08-30 08:33] LABS: MANUAL DIFFERENTIAL MANUAL DIFFERENTIAL (MANUAL DIFF)
--- NOTE | 2021-08-30 08:37 | ECG_ITS ---
APPROVED REPORT Exam: Resting ECG HR:90 bpm ECG Measurements Heart Rate 90 AXES MN 160 P 61 QRSd 98 QRS 49 QT 392 T 57 QTc 439 Conclusion SINUS RHYTHM POSSIBLE LEFT ATRIAL ENLARGEMENT [-0.1mV P-WAVE IN V1/V2] POSSIBLE RIGHT VENTRICULAR CONDUCTION DELAY [RSR (QR) IN V1/V2] BORDERLINE ECG UNCONFIRMED REPORT Electronically signed by : Livan Duvall MD 08/30/2021 20:10:42
[2021-08-30 08:40] VITALS: BP 136/87; PULSE 89; RESP 18; O2SAT 96
[2021-08-30 08:45] LABS: NT Pro Brain Natriuretic Pep. 25.6 pg/mL (0-125)
[2021-08-30 08:49] LABS: Troponin I < 0.01 ng/ml (0.00-0.034)
[2021-08-30 09:32] LABS: Bacteria,Urine Trace /lpf; RBC,Urine Occasional #/hpf (0-3); Squamous Epithelial Cell,Urine Occasional #/hpf (0-5); WBC,Urine Occasional #/hpf (0-3)
[2021-08-30 09:45] VITALS: BP 135/89; PULSE 91; RESP 20; TEMP 37.1; O2SAT 96
[2021-08-30 09:50] LABS: Lymphocytes % 7 % (10-50); Monocytes % 6 % (2-9); Neutrophils % 87 % (42-76); Platelet Estimate Normal; RBC Morphology Normal; Total Cells Counted 100
== END 2021-08-30 09:50 | disposition home or self-care (01) ==
PROVIDERS: Emergency Provider Emergency Medicine; PCP Family Medicine
DX: R06.02 Shortness of breath (principal); R11.10 Vomiting, unspecified; R19.7 Diarrhea, unspecified; I10 Essential (primary) hypertension; E78.5 Hyperlipidemia, unspecified; J45.909 Unspecified asthma, uncomplicated; Z20.822 Contact with and (suspected) exposure to COVID-19; Z79.899 Other long term (current) drug therapy; Z85.9 Personal history of malignant neoplasm, unspecified; Z82.49 Family history of ischemic heart disease and other diseases of the circulatory system; Z80.9 Family history of malignant neoplasm, unspecified
CPT/HCPCS: 71046; 80053; 81001; 83880; 84484; 85007; 85025; 93005; 96361; 96365; 96374; 96375; 99285; C9803; J2405; U0003; U0005

== ENCOUNTER → 2022-01-12 09:21 | Outpatient (CLI) | payer OTHER, SELFPAY ==
--- NOTE | 2022-01-12 09:24 | XR_ITS ---
FINAL REPORT CLINICAL HISTORY: pain FINDINGS: RIGHT FOOT Three weight-bearing views of the right foot demonstrate no acute fracture or dislocation. There are mild degenerative changes. There are calcaneal spurs. The soft tissues are unremarkable. IMPRESSION: Mild degenerative change with no acute bony abnormality. Reviewed, Interpreted and Dictated by William Adler III, MD Transcribed by Michelle Dewitt Authenticated and [facility]
== END ==
PROVIDERS: PCP Family Medicine; Visit Provider Podiatrist
DX: M79.671 Pain in right foot (principal)
CPT/HCPCS: 73630

== ENCOUNTER 2022-06-09 13:47 | Emergency (ER) | payer OTHER, SELFPAY ==
[2022-06-09 14:10] VITALS: BP 141/90; PULSE 91; RESP 20; TEMP 36.8; O2SAT 97; BMI 41.8
[2022-06-09 14:32] VITALS: BP 141/90; PULSE 91; RESP 20; TEMP 36.8; O2SAT 97
[2022-06-09 14:51] LABS: Influenza A, PCR Not Detected (NotDetected); Influenza B, PCR Not Detected (NotDetected)
--- NOTE | 2022-06-09 14:57 | EXP.UTC ---
Discharge Plan Disposition Patient Disposition: Home, Self-Care Condition: Good Prescriptions Prescriptions: No Action fenofibric acid (choline) 135 mg capsule,delayed release(DR/EC) 135 mg PO DAILY losartan 100 mg tablet 100 mg PO DAILY allopurinol 300 mg tablet 300 mg PO DAILY meloxicam 7.5 mg tablet 7.5 mg PO DAILY Qty: 30 2RF cetirizine 10 MG capsule 10 mg PO DAILY montelukast 10 MG tablet 10 mg PO PM Referrals Follow up/Referrals: Anant Esteves MD [Primary Care Provider] - See instructions Activity Restrictions/Add. Instructions Additional Instructions/Restrictions: *Monitor Temp, Over the counter Motrin or Tylenol as directed/as needed Tylenol every 4 hours and Motrin every 6 hours (as long as your family doctor has told you that you can take it) for fever or pain. and straight to ER if unable to lower temp less than 101.0 after medication given *Warm salt water gargles may help to soothe the throat *Throat Lozenges? *Warm fluids like tea with honey may help to soothe the throat? *Sleep elevated *Humidifier/Vaporizer Follow up IMMEDIATELY for new or worsening symptoms or no Noticeable improvement over the next 48-72 hours. 911 for difficulty breathing or swallowing You were tested for today for COVID19 your test result should be back in the next 24-48 hours, you may check your Results on the [facility] Clinical Impressions Clinical Impression: Exposure to COVID-19 virus Instructions Patient Instructions: DI for COVID-19 (Suspected or Confirmed ), Preventing the Spread of Coronavirus Discharge Instructions Discharge ED Provider: Katey Sawyer [facility] [place] HPI General Stated complaint: exposed to covid, no symptoms Mode of Arrival: Ambulatory Source of Information: Patient Limitations: No Limitations Time Seen by Provider: 06/09/22 14:58 Description of Symptoms (Recalled from Triage Doc. by RN): PATIENT REQUESTING COVID TEST D/T EXPOSURE. DENIES SYMPTOMS AT THIS TIME HEENT Symptoms (Recalled from RN notes): No Resp Symptoms (Recalled from RN notes): No Skin Symptoms (Recalled from RN notes): No MS Symptoms (Recalled from RN notes): No Functional Status (Recalled from RN notes): WNL History of Present Illness Provider Complaint: Patient states that tested positive for COVID yesterday States that he has been around her but not having any symptoms but wanted to get tested Related Data Home Medications Medication Instructions Recorded Confirmed losartan 100 mg tablet 100 mg PO DAILY High blood pressure 06/23/17 02/24/22 allopurinol 300 mg tablet 300 mg PO DAILY gout 10/28/20 02/24/22 fenofibric acid (choline) 135 mg 135 mg PO DAILY Cholesterol 10/28/20 02/24/22 capsule,delayed release cetirizine 10 mg capsule 10 mg PO DAILY ALLERGIES 11/04/20 02/24/22 montelukast 10 mg tablet 10 mg PO PM Breathing problems 11/12/20 02/24/22 Previous Rx's Medication Instructions Recorded meloxicam 7.5 mg tablet 7.5 mg PO DAILY #30 tabs 01/12/22 Allergies Allergy/AdvReac Type Severity Reaction Status Date / Time No Known Allergies Allergy Verified 02/24/22 08:39 Worker's Comp Is this a Worker's Comp case?: No [facility] Disclaimer: The information contained in this section may have been updated after the patient was seen, as this information can be updated by other users. Medical History (Updated 06/09/22 @ 15:01 by Katey Sawyer APRN) Asthma Cancer HLD (hyperlipidemia) HTN (hypertension), benign Skin cancer Surgical History (Updated 02/24/22 @ 08:41 by MINA East) H/O: hemorrhoidectomy History of cholecystectomy Family History (Updated 02/24/22 @ 08:41 by MINA East) Other Hypertension Thyroid disorder Social History (Updated 02/24/22 @ 08:41 by MINA East) Smoking Status: Never smoker second hand exposure: Yes alcohol intake: never counseling provided: suzan
[2022-06-09 15:41] LABS: Coronavirus 19, PCR Detected (NotDetected)
== END 2022-06-09 15:22 | disposition home or self-care (01) ==
PROVIDERS: Emergency Provider Nurse Practitioner; PCP Family Medicine
DX: U07.1 COVID-19 (principal)
CPT/HCPCS: 99212; C9803; G0463; U0003; U0005

== ENCOUNTER → 2022-07-26 10:07 | Outpatient (CLI) | payer OTHER, SELFPAY ==
--- NOTE | 2022-07-26 10:11 | XR_ITS ---
FINAL REPORT CLINICAL HISTORY: chronic cough COMPARISON: 08/30/2021 FINDINGS: 2 views of the chest were obtained . The heart is normal in size. The mediastinum is within normal limits. The lungs are clear. There is no pneumothorax. Osseous structures are unremarkable. IMPRESSION: No acute cardiopulmonary process. Reviewed, Interpreted and Dictated by Kinsey Sharp MD Transcribed by Mary Blanchard Authenticated and . [facility]
== END ==
PROVIDERS: PCP Family Medicine; Visit Provider Family Medicine
DX: R05.3 Chronic cough (principal)
CPT/HCPCS: 71046

== ENCOUNTER → 2022-07-30 08:01 | Outpatient (CLI) | payer OTHER, SELFPAY | PROVIDERS: PCP Family Medicine; Visit Provider Family Medicine | DX: R05.3 Chronic cough (principal) | CPT/HCPCS: 94060 ==

== ENCOUNTER → 2022-08-18 08:02 | Outpatient (CLI) | payer OTHER, SELFPAY ==
--- NOTE | 2022-08-18 08:42 | PC.NURSE ---
PFT completed without incident. Albuterol 0.083% given via HHN, per protocol, Pt tolerated tx well.
== END ==
PROVIDERS: PCP Family Medicine; Visit Provider Family Medicine
DX: R05.3 Chronic cough (principal); R94.2 Abnormal results of pulmonary function studies
CPT/HCPCS: 94060; 94726; 94729

== ENCOUNTER 2022-08-21 10:09 | Emergency (ER) | payer OTHER, SELFPAY ==
[2022-08-21 10:20] VITALS: BP 138/94; PULSE 89; RESP 20; TEMP 36.7; O2SAT 95; BMI 40.8
--- NOTE | 2022-08-21 10:34 | EXP.UTC ---
Discharge Plan Disposition Patient Disposition: Home, Self-Care Condition: Good Prescriptions Prescriptions: No Action fenofibric acid (choline) 135 mg capsule,delayed release(DR/EC) 135 mg PO DAILY losartan 100 mg tablet 100 mg PO DAILY allopurinol 300 mg tablet 300 mg PO DAILY meloxicam 7.5 mg tablet 7.5 mg PO DAILY Qty: 30 2RF cetirizine 10 MG capsule 10 mg PO DAILY montelukast 10 MG tablet 10 mg PO PM Referrals Follow up/Referrals: Anant Esteves MD [Primary Care Provider] - See instructions Activity Restrictions/Add. Instructions Additional Instructions/Restrictions: Viral Gastroenteritits Drink extra fluids with and between meals. If you have difficulty drinking, try very small amounts of water or suck on ice chips. ? Avoid fruit juices, as these do not replace minerals and can actually increase diarrhea. ? Children and adults can use sports drinks to replenish electrolytes. Younger children and infants should use products formulated for children, like oral rehydration solutions. ? Eat food in small amounts and let your stomach recover. ? Get lots of rest. You may feel tired or weak. ? No greasy or fried foods for the next 24-48 hours BRAT diet Bananas Rice Apples and Mulberry ? Make sure to drink plenty of liquids ? Return if needed ? Straight to ER if any life threatening symptoms ? You was given an outpatient order for diarrhea panel, please collect specimen and bring back to outpatient lab then call back to the [facility] or follow up with family doctor for results ? Follow up with family doctor in the next 48-72 hours if no improvement or any worsening of symptoms Clinical Impressions Clinical Impression: Diarrhea Instructions Patient Instructions: Diarrhea Discharge ED Provider: Sonja Clement [facility] [place] HPI General Stated complaint: Congestion,cough,nausea,stomach pain Mode of Arrival: Ambulatory Source of Information: Patient Limitations: No Limitations Time Seen by Provider: 08/21/22 10:33 Description of Symptoms (Recalled from Triage Doc. by RN): PATIENT C/O STOMACH ACHE, WEAKNESS AND SOA SINCE LAST NIGHT HEENT Symptoms (Recalled from RN notes): No Resp Symptoms (Recalled from RN notes): Yes Skin Symptoms (Recalled from RN notes): No MS Symptoms (Recalled from RN notes): No Functional Status (Recalled from RN notes): WNL History of Present Illness Provider Complaint: Pt relates that he is concerned as he has had diarrhea since 3 am. He relates that his first stool was normal and then he has had watery stools since that time. He reports that he has felt weak and then SOA climbing the stairs at his home. He states that he had a PFT a week ago to look for restrictive airway disease as he has had a chronic cough. He states that he is getting older and just wants to make sure that he is ok. Related Data Home Medications Medication Instructions Recorded Confirmed losartan 100 mg tablet 100 mg PO DAILY High blood pressure 06/23/17 02/24/22 allopurinol 300 mg tablet 300 mg PO DAILY gout 10/28/20 02/24/22 fenofibric acid (choline) 135 mg 135 mg PO DAILY Cholesterol 10/28/20 02/24/22 capsule,delayed release cetirizine 10 mg capsule 10 mg PO DAILY ALLERGIES 11/04/20 02/24/22 montelukast 10 mg tablet 10 mg PO PM Breathing problems 11/12/20 02/24/22 Previous Rx's Medication Instructions Recorded meloxicam 7.5 mg tablet 7.5 mg PO DAILY #30 tabs 01/12/22 Allergies Allergy/AdvReac Type Severity Reaction Status Date / Time No Known Allergies Allergy Verified 02/24/22 08:39 Worker's Comp Is this a Worker's Comp case?: No [facility] Disclaimer: The information contained in this section may have been updated after the patient was seen, as this information can be updated by other users. Medical History (Updated 08/21/22 @ 10:56 by Sonja Clement APRN) Asthma Cancer HLD (hyperlipid
[2022-08-21 10:52] VITALS: BP 138/94; PULSE 89; RESP 20; TEMP 36.7; O2SAT 95
== END 2022-08-21 11:00 | disposition home or self-care (01) ==
PROVIDERS: Emergency Provider Nurse Practitioner Family; PCP Family Medicine
DX: R10.9 Unspecified abdominal pain (principal); R53.1 Weakness; R06.02 Shortness of breath; R19.7 Diarrhea, unspecified; R11.0 Nausea; R05.3 Chronic cough
CPT/HCPCS: 99212; 99213; G0463

== ENCOUNTER 2023-06-03 15:06 | Emergency (ER) | payer OTHER, SELFPAY ==
[2023-06-03 15:25] VITALS: BP 148/93; PULSE 88; RESP 22; TEMP 37.3; O2SAT 95; BMI 39.9
[2023-06-03 15:41] LABS: UTC Influenza A Antigen Negative (Negative); UTC Influenza B Antigen Negative (Negative)
--- NOTE | 2023-06-03 15:47 | EXP.UTC ---
Discharge Plan Disposition Patient Disposition: Home, Self-Care Condition: Good Prescriptions Prescriptions: No Action fenofibric acid (choline) 135 mg capsule,delayed release(DR/EC) 135 mg PO DAILY losartan 100 mg tablet 100 mg PO DAILY allopurinol 300 mg tablet 300 mg PO DAILY cetirizine 10 MG capsule 10 mg PO DAILY montelukast 10 MG tablet 10 mg PO PM Referrals Follow up/Referrals: Anant Esteves MD [Primary Care Provider] - See instructions Activity Restrictions/Add. Instructions Additional Instructions/Restrictions: *Monitor Temp, Over the counter Motrin or Tylenol as directed/as needed Tylenol every 4 hours and Motrin every 6 hours (as long as your family doctor has told you that you can take it) for fever or pain. and straight to ER if unable to lower temp less than 101.0 after medication given *Warm salt water gargles may help to soothe the throat *Throat Lozenges? *Warm fluids like tea with honey may help to soothe the throat? *Sleep elevated *Humidifier/Vaporizer Your throat swab was sent for culture. Those results are typically sent to your primary care. Be sure to follow up in 2-3 days with your family doctor/primary care physician if no improvement so they can review those result and treat if necessary. If you don?t have a primary care doctor, I recommend you get one but in the mean time, you will have to return to a walk in clinic Follow up IMMEDIATELY for new or worsening symptoms or no Noticeable improvement over the next 48-72 hours. 911 for difficulty breathing or swallowing You were tested for today for COVID19 your test result should be back in the next 24hrs, you may check your results on the [facility] Health Portal if you are positive you must Quarantine for 5 days Clinical Impressions Clinical Impression: Viral syndrome Stand Alone Forms Stand Alone Forms: Work/School Release Instructions Patient Instructions: DI for Viral Syndrome Discharge ED Provider: Katey Sawyer [facility] [place] HPI General Stated complaint: runny nose, cough,fever Mode of Arrival: Ambulatory Source of Information: Patient Limitations: No Limitations Time Seen by Provider: 06/03/23 15:47 Description of Symptoms (Recalled from Triage Doc. by RN): PATIENT C/O COUGH, SNEEZING, RUNNY NOSE AND FEVER X 2 DAYS HEENT Symptoms (Recalled from RN notes): Yes Resp Symptoms (Recalled from RN notes): Yes Skin Symptoms (Recalled from RN notes): No MS Symptoms (Recalled from RN notes): No Functional Status (Recalled from RN notes): WNL History of Present Illness Provider Complaint: Patient states that he started feeling bad a couple days ago feeling achy, scratchy throat, fever, runny nose and sneezing States that someone at work had strep throat and he was worried that he may have the flu or something Related Data Home Medications Medication Instructions Recorded Confirmed losartan 100 mg tablet 100 mg PO DAILY High blood pressure 06/23/17 06/03/23 allopurinol 300 mg tablet 300 mg PO DAILY gout 10/28/20 06/03/23 fenofibric acid (choline) 135 mg 135 mg PO DAILY Cholesterol 10/28/20 06/03/23 capsule,delayed release cetirizine 10 mg capsule 10 mg PO DAILY ALLERGIES 11/04/20 06/03/23 montelukast 10 mg tablet 10 mg PO PM Breathing problems 11/12/20 06/03/23 Allergies Allergy/AdvReac Type Severity Reaction Status Date / Time No Known Allergies Allergy Verified 06/01/23 07:59 Worker's Comp Is this a Worker's Comp case?: No [facility] Disclaimer: The information contained in this section may have been updated after the patient was seen, as this information can be updated by other users. Medical History Asthma Cancer HLD (hyperlipidemia) HTN (hypertension), benign SHIRA (obstructive sleep apnea) Skin cancer Surgical History H/O: hemorrhoidectomy His
[2023-06-03 16:43] VITALS: BP 148/93; PULSE 88; RESP 22; TEMP 37.3; O2SAT 95
[2023-06-03 19:05] LABS: UTC Strep Screen (Rapid) Negative (Negative)
== END 2023-06-03 16:52 | disposition home or self-care (01) ==
PROVIDERS: Emergency Provider Nurse Practitioner; PCP Family Medicine
DX: R05.9 Cough, unspecified (principal); R50.9 Fever, unspecified; R07.0 Pain in throat; R09.81 Nasal congestion; M79.18 Myalgia, other site; B34.9 Viral infection, unspecified; I10 Essential (primary) hypertension; E78.5 Hyperlipidemia, unspecified; J45.909 Unspecified asthma, uncomplicated; Z20.818 Contact with and (suspected) exposure to other bacterial communicable diseases
CPT/HCPCS: 87635; 87804; 87880; 99212; 99213; G0463

== ENCOUNTER 2023-06-23 11:18 | Emergency (ER) | payer OTHER, SELFPAY ==
[2023-06-23 11:35] VITALS: BP 145/90; PULSE 85; RESP 20; TEMP 37; O2SAT 95; BMI 39.9
--- NOTE | 2023-06-23 11:49 | ED_ITS ---
Discharge Plan Disposition Patient Disposition: Home, Self-Care Condition: Good Prescriptions Prescriptions: New azithromycin [Zithromax Z-Ld] 250 mg tablet See Rx Instructions .ROUTE .COMPLEX 5 Days Qty: 6 0RF Rx Instructions: For 250 mg dose pack: take 500 mg today (day 1), then 250 mg for 4 days (days 2-5) benzonatate 100 mg capsule 100 mg PO TID PRN (Reason: cough) Qty: 30 0RF methylprednisolone [Medrol (Ld)] 4 mg tablets,dose pack See Rx Instructions .Route .COMPLEX 6 Days Qty: 21 0RF Rx Instructions: taper pack; guaifenesin [Mucinex] 600 mg tablet extended release 12hr 600 - 1,200 mg PO BID PRN (Reason: cough) Qty: 20 0RF No Action fenofibric acid (choline) 135 mg capsule,delayed release(DR/EC) 135 mg PO DAILY losartan 100 mg tablet 100 mg PO DAILY allopurinol 300 mg tablet 300 mg PO DAILY cetirizine 10 MG capsule 10 mg PO DAILY Referrals Follow up/Referrals: Anant Esteves MD [Primary Care Provider] - See instructions Activity Restrictions/Add. Instructions Additional Instructions/Restrictions: *Monitor Temp, Over the counter Motrin or Tylenol as directed/as needed Tylenol every 4 hours and Motrin every 6 hours (as long as your family doctor has told you that you can take it) for fever or pain. and straight to ER if unable to lower temp less than 101.0 after medication given *Warm salt water gargles may help to soothe the throat *Throat Lozenges? *Warm fluids like tea with honey may help to soothe the throat? *Sleep elevated *Humidifier/Vaporizer *Your throat swab was sent for culture. Those results are typically sent to your primary care. Be sure to follow up in 2-3 days with your family doctor/primary care physician if no improvement so they can review those result and treat if necessary. If you don?t have a primary care doctor, I recommend you get one but in the mean time, you will have to return to a walk in clinic Follow up IMMEDIATELY for new or worsening symptoms or no Noticeable improvement over the next 48-72 hours. 911 for difficulty breathing or swallowing You were tested for today for Upper Respiratory Panel with COVID19 your test result should be back in the next 24-48 hours, You may check your results on the [facility] My Health Portal if your COVID or Influenza is positive you must Quarantine for 5 days Clinical Impressions Clinical Impression: Bronchitis Sinusitis Qualifiers: Sinusitis location: unspecified location Chronicity: unspecified Qualified Code(s): J32.9 - Chronic sinusitis, unspecified Instructions Patient Instructions: Sinusitis, Acute Bronchitis, DI for Sinusitis Discharge ED Provider: Katey Sawyer [facility] [place] HPI General Stated complaint: fever, cough, runny nose Mode of Arrival: Ambulatory Source of Information: Patient Limitations: No Limitations Time Seen by Provider: 06/23/23 11:50 Description of Symptoms (Recalled from Triage Doc. by RN): PATIENT C/O COUGH, SNEEZING, AND FEVER HEENT Symptoms (Recalled from RN notes): Yes Resp Symptoms (Recalled from RN notes): Yes Skin Symptoms (Recalled from RN notes): No MS Symptoms (Recalled from RN notes): No Functional Status (Recalled from RN notes): WNL History of Present Illness Provider Complaint: Patient states that he has been sick on and off since with sinus congestion and pressure, started feeling a little achy yesterday and today he went to work States that while at work he started with sneezing, cough and fever States that as the day went on he continued to feel worse so he came in Related Data Home Medications Medication Instructions Recorded Confirmed losartan 100 mg tablet 100 mg PO DAILY High blood pressure 06/23/17 06/23/23 allopurinol 300 mg tablet 300 mg PO DAILY gout 10/28/20 06/23/23 fenofibric acid (choline) 135 mg 135 mg PO DAILY Cholesterol 10/28/20 06/23/23 capsule,delayed release cetirizine 10 mg capsule 10 mg PO DAILY ALLERGIES 11/04/20 06/23/23 Previous Rx's Medication Instructions Recorded azithromycin 250 mg tablet See Rx Instructions PO .COMPLEX 5 06/23/23 (Zithromax Z-Ld) days #6 tabs benzonatate 100 mg capsule 100 mg PO TID PRN cough #30 caps 06/23/23 guaifenesin 600 mg tablet, 600 - 1,200 mg PO BID PRN cough 06/23/23 extended release 12 hr (Mucinex) #20 tabs methylprednisolone 4 mg tablets in See Rx Instructions .Route 06/23/23 a dose pack (Medrol (Ld)) .COMPLEX 6 days #21 tabs Allergies Allergy/AdvReac Type Severity Reaction Status Date / Time No Known Allergies Allergy Verified 06/01/23 07:59 Worker's Comp Is this a Worker's Comp case?: No [facility] Disclaimer: The information contained in this section may have been updated after the patient was seen, as this information can be updated by other users. Medical History (Updated 06/23/23 @ 12:09 by Katey Sawyer APRN) Asthma Cancer HLD (hyperlipidemia) HTN (hypertension), benign SHIRA (obstructive sleep apnea) Skin cancer Surgical History (Updated 06/23/23 @ 09:58 by Tucker Andrea RN) H/O: hemorrhoidectomy History of cholecystectomy History of colonoscopy History of surgery on right wrist Family History (Updated 06/23/23 @ 09:59 by Tucker Andrea RN) Other Family history of diabetes mellitus Family history of pacemaker Hypertension Thyroid disorder Social History (Updated 06/23/23 @ 09:58 by Tucker Andrea RN) Smoking Status: Never smoker second hand exposure: Yes alcohol intake: never counseling provided: provider counseling substance use type: denies use current occupational status: employed Travel in the last 8 weeks: None household members: spouse housing: house marital status: 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 current occupational exposures/hazards: No caffeine: Yes ROS Obtained: Yes All systems reviewed & no additional complaints except as documented and Yes Systems reviewed as appropriate & no additional complaints except as documented Constitutional Constitutional: Reports system reviewed and no additional complaints, except as documented, Reports as per HPI, Reports body ache and Reports fever(s) ENT Ears, Nose, Mouth, and Throat: Reports system reviewed and no additional complaints, except as documented, Reports as per HPI, Reports nasal congestion and Reports nasal discharge Cardiovascular Cardiovascular: Reports system reviewed and no additional complaints, except as documented and Reports as per HPI Respiratory Respiratory: Reports system reviewed and no additional complaints, except as documented, Reports as per HPI and Reports cough Gastrointestinal Gastrointestingal: Reports system reviewed and no additional complaints, except as documented and as per HPI Musculoskeletal Musculoskeletal: Reports system reviewed and no additional complaints, except as documented and Reports as per HPI Physical Exam General General appearance: alert and in no apparent distress ENT ENT exam: Present mucous membranes moist Expanded ENT Exam Nose exam: Present sinus tenderness Throat exam: Present other (Pharyngeal erythema noted with PND) Respiratory Respiratory exam: Present normal lung sounds bilaterally; Absent respiratory distress or wheezes Cardiovascular Cardiovascular exam: Present regular rate, normal rhythm and normal heart sounds Neurological Exam Neurological exam: Present alert, oriented X3 and normal gait Medical Decision Making Chau Inquiry Pt receiving controlled substance: No Chau was queried for this patient: No Vital Signs: 06/23/23 11:35 Temperature 100.2 F H Temperature Source Oral Pulse Rate [Left Brachial] 85 Respiratory Rate 20 Blood Pressure [Left Arm] 145/90 H Blood Pressure Mean [Left Arm] 108 Blood Pressure Source [Left Arm] Automatic Cuff Blood Pressure Position [Left Arm] Sitting 02 Sat by Pulse Oximetry 95 Oxygen Delivery Method Room Air Lab Data Lab results reviewed: Yes I reviewed the patient's lab results.
[2023-06-23 12:06] LABS: UTC Strep Screen (Rapid) Negative (Negative)
[2023-06-23 12:07] LABS: UTC Influenza A Antigen Negative (Negative); UTC Influenza B Antigen Negative (Negative)
[2023-06-23 12:10] VITALS: BP 145/90; PULSE 85; RESP 20; TEMP 37; O2SAT 95
[2023-06-23 14:20] LABS: Adenovirus,PCR Not Detected (NotDetected); Coronavirus 19, PCR Not Detected (NotDetected); Coronavirus 229E Not Detected (NotDetected); Coronavirus NL63 Not Detected (NotDetected); Coronavirus OC43 Not Detected (NotDetected); Coronovirus HKU1,PCR Not Detected (NotDetected); Human Metapneumovirus Not Detected (NotDetected); Influenza A, PCR Not Detected (NotDetected); Influenza AH1, PCR Not Detected (NotDetected); Influenza AH3,PCR Not Detected (NotDetected); Influenza B, PCR Not Detected (NotDetected); Parainfluenza 1, PCR Not Detected (NotDetected); Parainfluenza 2, PCR Not Detected (NotDetected); Parainfluenza 3, PCR Not Detected (NotDetected); Parainfluenza 4, PCR Not Detected (NotDetected); Respiratory Syncytial Virus Not Detected (NotDetected); Rhinovirus/Enterovirus Not Detected (NotDetected)
[2023-06-23 14:21] LABS: Influenza AH1, 2009 Detected (NotDetected)
== END 2023-06-23 12:20 | disposition home or self-care (01) ==
PROVIDERS: Emergency Provider Nurse Practitioner; PCP Family Medicine
DX: J20.9 Acute bronchitis, unspecified (principal); J32.9 Chronic sinusitis, unspecified; R05.9 Cough, unspecified; R50.9 Fever, unspecified; R09.81 Nasal congestion; R06.7 Sneezing; J45.909 Unspecified asthma, uncomplicated; E78.5 Hyperlipidemia, unspecified; I10 Essential (primary) hypertension; G47.33 Obstructive sleep apnea (adult) (pediatric)
CPT/HCPCS: 87632; 87635; 87804; 87880; 99212; 99214; G0463

== ENCOUNTER 2023-08-05 10:04 | Day surgery (SDC) | payer OTHER, SELFPAY ==
[2023-06-23 10:00] VITALS: BMI 38.7
[2023-08-02 17:37] VITALS: BMI 39.4
[2023-08-05] MEDS: LACTATED RINGERS 1000ML 1,000 ML 25 ML IV (10:14)
[2023-08-05 10:16] VITALS: BP 123/76; PULSE 75; RESP 18; TEMP 36.8; O2SAT 95
--- NOTE | 2023-08-05 10:21 | P.PCN_ITS ---
Procedure: Date: 08/05/23 Patient Date of :: 1960 Procedure Performed:: Total colonoscopy to terminal ileum with polypectomy using cold snare Indications:: Patient is a 62-year-old male with history of colon polyps. I have followed him for some time for gallbladder issues, hemorrhoid surgery, and surveillance colonoscopy. He presents for follow-up surveillance colonoscopy. I had performed colonoscopy on 12/03/2014 at which time he had tubular adenoma. He had a colonoscopy on 03/25/2021 at which time he had 5 tubular adenomas removed. Recommendations were for 2-year follow-up colonoscopy. Performing Provider:: William Joy MD Referring Provider:: Anant Esteves Sedation:: MAC sedation Procedure:: Patient history was obtained and appropriate physical examination was performed. Patient's medications and allergies were reviewed. Informed consent was obtained after explaining the benefits, alternatives, and risks of the procedure including, but not limited to, bleeding, perforation, missed lesions, and adverse reaction to anesthesia medications. Patient was transported to endoscopy procedure room. Patient was connected to monitoring devices. Throughout the procedure the patient's blood pressure, pulse, and oxygen saturations were monitored continuously. Patient identification and planned procedure were verified by the staff. Patient was positioned in lateral decubitus position. Digital anorectal exam was performed. Variable stiffness Olympus colonoscope was inserted and advanced under direct visualization to the cecum. Adequacy of the colonic preparation was noted. The colonoscope was advanced a short distance into the terminal ileum. The colonoscope was then slowly withdrawn while carefully examining the color, texture, anatomy, and integrity of the mucosoa ci rcumferentially. Within the rectum retroflexion was performed. Colonoscope was then withdrawn. . Colonic preparation was fair as there was particulate liquid stool throughout the colon. This was able to be mostly cleared with high-volume trans colonoscopic irrigation and suctioning. There was a small polyp in the descending colon removed in a piecemeal fashion using cold snare. Patient did have some external hemorrhoids. . Findings:: Fair colonic preparation Small descending colon polyp External hemorrhoids. Recommendations:: Follow-up colonoscopy pending pathology. Given prior history of complex multiple adenomatous polyps with fair prep likely 3 years. Complications:: None immediately apparent Estimated blood obtained (mL): 2 Colonoscopy Component Colonoscopy Component Was a colonoscopy performed during today's procedure?: Yes Recommended follow up colonoscopy of at least 10 years?: No If no, follow up colonoscopy recommended in ___ years?: 3-5 Reason for not recommending >/= 10 yr follow-up interval?: Polyps, prep
--- NOTE | 2023-08-05 10:30 | P.PNANES_ITS ---
[facility] Disclaimer: The information contained in this section may have been updated after the patient was seen, as this information can be updated by other users. Medical History Asthma Cancer HLD (hyperlipidemia) HTN (hypertension), benign SHIRA (obstructive sleep apnea) Skin cancer Surgical History H/O: hemorrhoidectomy History of cholecystectomy History of colonoscopy History of surgery on right wrist Family History Other Family history of diabetes mellitus Family history of pacemaker Hypertension Thyroid disorder Social History Smoking Status: Never smoker second hand exposure: Yes alcohol intake: never counseling provided: provider counseling substance use type: denies use current occupational status: employed Travel in the last 8 weeks: None household members: spouse housing: house marital status: 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 current occupational exposures/hazards: No caffeine: Yes [facility] Anesthesia Checklist Patient Identification Patient Identification: Arm Band Structural Data Admitted From: Home Planned Operative Procedure/s: Colonoscopy Consent for Planned Operative Procedure(s) Verified: Yes Verified Documents: Surgical Consent and History and Physical NPO Status Verified Time NPO: 00:00 Additional verifications Anesthesia Reactions: No Hx Blood Transfusions: No Airway Assessment Mallampati Score:: Class II C-Spine Mobility Assessed: Yes TMJ Mobility Assessed: Yes Dentition: Good Dentition Neurological Assessment Level of Consciousness: Awake and Alert Anesthesia Plan Anesthesia Risk discussed: Yes Anesthesia Plan: Verified ASA Class: III Anesthesia Type: MAC
[2023-08-05 10:46] VITALS: O2SAT 94
[2023-08-05 11:26] VITALS: BP 107/70; PULSE 76; RESP 17; O2SAT 93
[2023-08-05 11:36] VITALS: BP 114/68; PULSE 73; RESP 18; O2SAT 94
[2023-08-05 11:46] VITALS: BP 114/63; PULSE 77; RESP 16; O2SAT 95
== END 2023-08-05 11:59 | disposition home or self-care (01) ==
PROVIDERS: PCP Family Medicine; Visit Provider Surgery
PROC: 0DJD8ZZ Inspection of Lower Intestinal Tract, Via Natural or Artificial Opening Endoscopic (ICD-10-PCS; CPT 45385; principal; 2023-08-05 11:30)
DX: Z12.11 Encounter for screening for malignant neoplasm of colon (principal); K64.8 Other hemorrhoids; K63.5 Polyp of colon
CPT/HCPCS: 45385; J2704

== ENCOUNTER 2024-06-03 12:19 | Emergency (ER) | payer OTHER, SELFPAY ==
--- NOTE | 2024-06-03 12:21 | ED_ITS ---
<Statement entered by Maureen Herring MD - 06/03/24 16:09> I was consulted by the JONI, and we discussed the complexity of problems being addressed. I approved the treatment and management plan for this patient's care in the emergency department, thus performing a substantive portion of the medical decision making. Maureen Herring MD Discharge Plan Disposition Patient Disposition: Home, Self-Care Condition: Good Prescriptions Prescriptions: No Action fenofibric acid (choline) 135 mg capsule,delayed release(DR/EC) 135 mg PO DAILY losartan 100 mg tablet 100 mg PO DAILY allopurinol 300 mg tablet 300 mg PO DAILY cetirizine 10 MG capsule 10 mg PO DAILY Referrals Follow up/Referrals: Anant Esteves MD [Primary Care Provider] - See instructions William Joy MD [Staff Physician] - See instructions Activity Restrictions/Add. Instructions Additional Instructions/Restrictions: As we discussed and providing you a disimpaction sheet but to summarize 10 capfuls in 32 ounces of Gatorade. Additionally you might add fiber supplements to your daily regimen. Continue your current regimen as you are already doing. I will refer you to general surgery Dr. Joy for evaluation of your hemorrhoids Clinical Impressions Clinical Impression: Bleeding external hemorrhoids Instructions Patient Instructions: DI for Hemorrhoids Print Language Print Language: Hungarian Discharge ED Provider: Maureen Herring General Adult HPI General Chief complaint: Recheck/Abnormal Lab/Rx Stated complaint: blood in stool Time Seen by Provider: 06/03/24 12:21 History of Present Illness HPI narrative: Patient presents for bright red blood per rectum. Patient states that he has a known history of hemorrhoids but also has been having issues with constipation. He has been trying MiraLAX with only moderate success however today he noted that he saw some drops of bright red blood on the toilet paper. He reports some discomfort but not significant and it is not new to him. He has previously had resection by Dr. Joy. He denies any fever chills hemoptysis hematochezia melena hematemesis hematuria. Related Data Home Medications ?Medication ?Instructions ?Recorded ?Confirmed losartan 100 mg tablet 100 mg PO DAILY High blood pressure 06/23/17 08/04/23 allopurinol 300 mg tablet 300 mg PO DAILY gout 10/28/20 08/04/23 fenofibric acid (choline) 135 mg 135 mg PO DAILY Cholesterol 10/28/20 08/04/23 capsule,delayed release cetirizine 10 mg capsule 10 mg PO DAILY ALLERGIES 11/04/20 08/04/23 Allergies Allergy/AdvReac Type Severity Reaction Status Date / Time No Known Allergies Allergy Verified 08/05/23 10:16 [facility] Disclaimer: The information contained in this section may have been updated after the patient was seen, as this information can be updated by other users. Medical History Asthma Cancer HLD (hyperlipidemia) HTN (hypertension), benign SHIRA (obstructive sleep apnea) Skin cancer Surgical History H/O: hemorrhoidectomy History of cholecystectomy History of colonoscopy History of surgery on right wrist Family History Other Family history of diabetes mellitus Family history of pacemaker Hypertension Thyroid disorder Social History Smoking Status: Unknown if ever smoked second hand exposure: Yes alcohol intake: never counseling provided: provider counseling substance use type: denies use current occupational status: employed Travel in the last 8 weeks: None household members: spouse housing: house marital status: 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 current occupational exposures/hazards: No caffeine: Yes Have you lived/traveled outside [place] in past 30 days?: No Contact w/someone who lives/traveled outside [place] past 30 days?: No Exposure to someone with infectious disease in past 14 days?: No Do you have a fever (greater than 100.4 F or 38 C)?: No Have you tested positive for COVID-19: No Exposed to someone with COVID-19 in past 14 days?: No Do you have a sore throat?: No Do you have a cough?: No Do you have any weakness?: No Do you have any diarrhea?: No Are you experiencing any unusual bleeding?: No Do you have any muscle aches/pain?: No Do you have any abdominal pain?: Yes Are you experiencing loss of taste or smell?: No Other Medical History Have you received the Flu Vaccine for this season: Yes Have you received the Pneumonia Vaccine: No ROS Obtained: Yes Systems reviewed as appropriate & no additional complaints except as documented Physical Exam General General appearance: alert and in no apparent distress Respiratory Respiratory exam: Present normal lung sounds bilaterally Cardiovascular Cardiovascular exam: Present regular rate Neurological Exam Neurological exam: Present alert and oriented X3 Medical Decision Making Medical Records Medical records reviewed: Yes I reviewed the patient's medical records. Screening: Per USPSTF and CDC recommendations, given the prevalence of disease in our region, it is our hospital?s policy to screen for HIV and viral Hepatitis for all patients aged 18 and over and those with ongoing risk factors. Chau Inquiry Pt receiving controlled substance: No Vital Signs: 06/03/24 12:30 Temperature 98.8 F Temperature Source Oral Pulse Rate [Left] 95 H Respiratory Rate 16 Blood Pressure [Right Arm] 174/97 H Blood Pressure Mean [Right Arm] 122 Blood Pressure Source [Right Arm] Automatic Cuff Blood Pressure Position [Right Arm] Sitting 02 Sat by Pulse Oximetry 99 Oxygen Delivery Method Room Air Medical Decision Narrative: In summary patient is a 63-year-old male who presents to the emergency department for evaluation of bright red blood per rectum. Patient is hemodynamically stable upon arrival, afebrile. Physical exam is remarkable for 1 thrombosed hemorrhoid on the right side however patient has significant evidence of polyps all around the rectum from previous hemorrhoidal enlargement. No visible stigmata of bleeding currently. No palpable internal hemorrhoids currently. Differential diagnosis includes hemorrhoidal bleeding versus skin tear although no evidence of such currently. Initial workup was considered with labs and imaging and with interactive discussion with the patient I offered such GOETZ and via patient directed decision making he felt he did not need such. Initial interventions were considered however patient is minimally symptomatic and has the majority of things that he needs at home thus deferred. Given this as no serious or life-threatening condition appears to exist patient is appropriate for discharge with a disimpaction sheet, instructions for adding oral fiber to his diet, referral back to Dr. Joy of general surgery for hemorrhoid evaluation. Critical Care Critical Care Time Critical Care Time: No
[2024-06-03 12:30] VITALS: BP 174/97; PULSE 95; RESP 16; TEMP 37.1; O2SAT 99; BMI 32.7
[2024-06-03 12:37] VITALS: BP 165/94; PULSE 90; RESP 16; TEMP 37.1
== END 2024-06-03 12:42 | disposition home or self-care (01) ==
PROVIDERS: Emergency Provider Student in an Organized Health Care Education/Training Program; PCP Family Medicine
DX: K64.4 Residual hemorrhoidal skin tags (principal); K92.1 Melena; K59.00 Constipation, unspecified
CPT/HCPCS: 99282

== ENCOUNTER 2024-06-03 15:22 | Emergency (ER) | payer OTHER, SELFPAY ==
--- NOTE | 2024-06-03 15:25 | HMH.EDGENADL ---
Discharge Plan Disposition Patient Disposition: Home, Self-Care Condition: Good Prescriptions Prescriptions: No Action fenofibric acid (choline) 135 mg capsule,delayed release(DR/EC) 135 mg PO DAILY losartan 100 mg tablet 100 mg PO DAILY allopurinol 300 mg tablet 300 mg PO DAILY cetirizine 10 MG capsule 10 mg PO DAILY Referrals Follow up/Referrals: Anant Esteves MD [Primary Care Provider] - See instructions Activity Restrictions/Add. Instructions Additional Instructions/Restrictions: Can you plan as we discussed at your previous visit today. Please add baby wipes to your regimen instead of plain tissue paper. Follow-up with PCP for any worsening signs or symptoms. Follow-up with general surgery as we discussed. Clinical Impressions Clinical Impression: Hemorrhoids Qualifiers: Hemorrhoid type: unspecified Qualified Code(s): K64.9 - Unspecified hemorrhoids Print Language Print Language: Nigerien Discharge ED Provider: Imer Ngo General Adult HPI <BAILEY Mantilla - Last Filed: 06/03/24 19:55> General Chief complaint: Recheck/Abnormal Lab/Rx Stated complaint: abd pain Time Seen by Provider: 06/03/24 15:25 History of Present Illness HPI narrative: Patient Parrish presents for bright red blood per rectum. Patient was seen earlier this date by myself for hemorrhoidal bleeding. He went home and had a sitz bath and did a MiraLAX disimpaction protocol. Patient states that he is still having rectal bleeding but it seems to be more now. He denies any fever chills hemoptysis hematochezia melena nausea vomiting. Related Data Home Medications ?Medication ?Instructions ?Recorded ?Confirmed losartan 100 mg tablet 100 mg PO DAILY High blood pressure 06/23/17 08/04/23 allopurinol 300 mg tablet 300 mg PO DAILY gout 10/28/20 08/04/23 fenofibric acid (choline) 135 mg 135 mg PO DAILY Cholesterol 10/28/20 08/04/23 capsule,delayed release cetirizine 10 mg capsule 10 mg PO DAILY ALLERGIES 11/04/20 08/04/23 Allergies Allergy/AdvReac Type Severity Reaction Status Date / Time No Known Allergies Allergy Verified 08/05/23 10:16 [facility] <BAILEY Mantilla - Last Filed: 06/03/24 19:55> [facility] Disclaimer: The information contained in this section may have been updated after the patient was seen, as this information can be updated by other users. Medical History Asthma Cancer HLD (hyperlipidemia) HTN (hypertension), benign SHIRA (obstructive sleep apnea) Skin cancer Surgical History H/O: hemorrhoidectomy History of cholecystectomy History of colonoscopy History of surgery on right wrist Family History Other Family history of diabetes mellitus Family history of pacemaker Hypertension Thyroid disorder Social History Smoking Status: Never smoker second hand exposure: Yes alcohol intake: never counseling provided: provider counseling substance use type: denies use current occupational status: employed Travel in the last 8 weeks: None household members: spouse housing: house marital status: 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 current occupational exposures/hazards: No caffeine: Yes Have you lived/traveled outside US in past 30 days?: No Contact w/someone who lives/traveled outside US past 30 days?: No Exposure to someone with infectious disease in past 14 days?: No Do you have a fever (greater than 100.4 F or 38 C)?: No Have you tested positive for COVID-19: No Exposed to someone with COVID-19 in past 14 days?: No Do you have a sore throat?: No Do you have a cough?: No Do you have any weakness?: No Do you have any diarrhea?: No Are you experiencing any unusual bleeding?: No Do you have any muscle aches/pain?: No Do you have any abdominal pain?: Yes Are you experiencing loss of taste or smell?: No Other Medical History Have you received the Flu Vaccine for this season: Yes Have you received the Pneumonia Vaccine: No <BAILEY Mantilla - Last Filed: 06/03/24 19:55> ROS Obtained: Yes Systems reviewed as appropriate & no additional complaints except as documented Physical Exam <BAILEY Mantilla - Last Filed: 06/03/24 19:55> General General appearance: alert and in no apparent distress Respiratory Respiratory exam: Present normal lung sounds bilaterally Cardiovascular Cardiovascular exam: Present regular rate Neurological Exam Neurological exam: Present alert and oriented X3 Medical Decision Making <BAILEY Mantilla - Last Filed: 06/03/24 19:55> Medical Records Medical records reviewed: Yes I reviewed the patient's medical records. Screening: Per USPSTF and CDC recommendations, given the prevalence of disease in our region, it is our hospital?s policy to screen for HIV and viral Hepatitis for all patients aged 18 and over and those with ongoing risk factors. Chau Inquiry Pt receiving controlled substance: No Vital Signs: 06/03/24 15:28 06/03/24 15:30 06/03/24 15:31 Temperature 98 F Temperature Source Oral Pulse Rate 81 100 H Pulse Rate [Left] 101 H Respiratory Rate 16 Blood Pressure 142/88 H 138/94 H Blood Pressure [Right Arm] 142/88 H Blood Pressure Mean [Right Arm] 106 Blood Pressure Source [Right Arm] Automatic Cuff Blood Pressure Position [Right Arm] Sitting 02 Sat by Pulse Oximetry 97 96 96 Oxygen Delivery Method Room Air Room Air Room Air 06/03/24 16:06 Temperature 98.0 F Temperature Source Pulse Rate 101 H Pulse Rate [Left] Respiratory Rate 16 Blood Pressure 138/94 H Blood Pressure [Right Arm] Blood Pressure Mean [Right Arm] Blood Pressure Source [Right Arm] Blood Pressure Position [Right Arm] 02 Sat by Pulse Oximetry Oxygen Delivery Method Medical Decision Narrative: In summary patient is a 63-year-old male who presents to the emergency department for evaluation of rectal bleeding. Patient is hemodynamically stable upon arrival, afebrile. Physical exam is remarkable now for superficial mild skin bleeding over the thrombosed hemorrhoid but no hemorrhoidal bleeding. Differential diagnosis includes skin irritation versus potential internal hemorrhoid however digital rectal exam reveals no palpable ones. Initial workup was considered however there are no stigmata of more serious or life-threatening conditions thus deferred. Interactive discussion with patient was had and patient was reassured and given strategies for management including hemorrhoid cream and Tucks pads along with baby wipes to prevent further irritation. Patient also recommended to do sitz bath's along with his previous fiber content and bowel regimen. Thus he is appropriate for discharge with scheduled follow-up with Dr. Joy of general surgery and with strict return precautions. <Imer Ngo MD - Last Filed: 06/03/24 20:26> Vital Signs: 06/03/24 15:28 06/03/24 15:30 06/03/24 15:31 Temperature 98 F Temperature Source Oral Pulse Rate 81 100 H Pulse Rate [Left] 101 H Respiratory Rate 16 Blood Pressure 142/88 H 138/94 H Blood Pressure [Right Arm] 142/88 H Blood Pressure Mean [Right Arm] 106 Blood Pressure Source [Right Arm] Automatic Cuff Blood Pressure Position [Right Arm] Sitting 02 Sat by Pulse Oximetry 97 96 96 Oxygen Delivery Method Room Air Room Air Room Air 06/03/24 16:06 Temperature 98.0 F Temperature Source Pulse Rate 101 H Pulse Rate [Left] Respiratory Rate 16 Blood Pressure 138/94 H Blood Pressure [Right Arm] Blood Pressure Mean [Right Arm] Blood Pressure Source [Right Arm] Blood Pressure Position [Right Arm] 02 Sat by Pulse Oximetry Oxygen Delivery Method Medical Decision Narrative: In summary patient is a 63-year-old male who presents to the emergency department for evaluation of rectal bleeding. Patient is hemodynamically stable upon arrival, afebrile. Physical exam is remarkable now for superficial mild skin bleeding over the thrombosed hemorrhoid but no hemorrhoidal bleeding. Differential diagnosis includes skin irritation versus potential internal hemorrhoid however digital rectal exam reveals no palpable ones. Initial workup was considered however there are no stigmata of more serious or life-threatening conditions thus deferred. Interactive discussion with patient was had and patient was reassured and given strategies for management including hemorrhoid cream and Tucks pads along with baby wipes to prevent further irritation. Patient also recommended to do sitz bath's along with his previous fiber content and bowel regimen. Thus he is appropriate for discharge with scheduled follow-up with Dr. Joy of general surgery and with strict return precautions. I was consulted by the JONI, and we discussed the complexity of the problems being addressed. I approved the treatment and management plan for this patient's care in the Emergency Department, thus performing a substantive portion of the medical decision making. Imer Ngo MD Critical Care <BAILEY Mantilla - Last Filed: 06/03/24 19:55> Critical Care Time Critical Care Time: No
[2024-06-03 15:28] VITALS: BP 142/88; PULSE 81; O2SAT 97
[2024-06-03 15:30] VITALS: BP 138/94; PULSE 100; O2SAT 96
[2024-06-03 15:31] VITALS: BP 142/88; PULSE 101; RESP 16; TEMP 36.6; O2SAT 96; BMI 32.7
[2024-06-03 16:06] VITALS: BP 138/94; PULSE 101; RESP 16; TEMP 36.7
== END 2024-06-03 16:07 | disposition home or self-care (01) ==
PROVIDERS: Emergency Provider Emergency Medicine; PCP Family Medicine
DX: K64.9 Unspecified hemorrhoids (principal); K62.5 Hemorrhage of anus and rectum
CPT/HCPCS: 99282

== ENCOUNTER 2025-04-27 16:30 | Observation (INO) | payer BC, SELFPAY ==
[2025-04-27] VITALS (7 sets, daily range): BP systolic 123–149; BP diastolic 68–100; PULSE 70–100; RESP 14–18; TEMP 36.6–36.8; O2SAT 97–100; BMI 28.4; BMI 28.8
--- NOTE | 2025-04-27 16:54 | ED_ITS ---
<Statement entered by Geovani Shah DO - 04/28/25 00:31> I was consulted by the JONI, and we discussed the complexity of problems being addressed. I approved the treatment and management plan for this patient's care in the emergency department, thus performing a substantive portion of the medical decision making. Geovani Shah DO Discharge Plan Disposition Patient Disposition: Admitted Condition: Good Clinical Impressions Clinical Impression: Stercoral colitis Discharge ED Provider: Geovani Shah General Adult HPI General Chief complaint: Abdominal Pain Stated complaint: severe constipation Time Seen by Provider: 04/27/25 16:53 Mode of Arrival: Ambulatory Source of Information: Patient and Spouse Description of Symptoms (Recalled from ER Triage Doc. by RN): lance presents to the ED for constipation since 04/17. lance is taking lactulose as prescribed as well as a few other extra doses to try to go to the bathroom. patient also endorses issues with urination as of today. the patient stated he was instructed by Dr Esteves to up his doses of lactulose. History of Present Illness HPI narrative: 64-year-old male presents to the emergency department with abdominal pain, constipation and obstipation started today, patient states he has not had a good bowel movement since 04/17/2025, was passing gas until today , had attempted to have a bowel movement today but just had some watery , no nausea no vomiting, no real abdominal pain at this time just describing it as discomfort , denies any fever chills chest pain shortness of breath, denies any hematochezia hematemesis melena hemoptysis, does endorse decreased urinary frequency today, was having regular urination yesterday. Patient takes lactulose 2-3 times daily, after being started on Wegovy , by PCP in June. Other past medical history consistent with status post cholecystectomy, history of hemorrhoidectomy, SHIRA on CPAP, obesity, data deficient history of gout, hypertension. Initial triage vitals are notable for tachycardia otherwise unremarkable. Please note that above description of symptoms, in this electronic medical record under categorization of recalled from ER triage doctor by RN are reflective of an initial nursing assessment, however, is not reflective of my full history and physical exam that was personally taken and clarified. Consequentially, this preceding description of symptoms, which may include the patient's categorized chief complaint in the EMR, do not reflect my personal clinical impression, and the ultimate description of history of present illness and patient stated complaints should be deferred to this section of the note. Unless stated otherwise or congruent with this section of the note, additional signs, symptoms, or incongruence should be interpreted as inaccurate with my clinical impression. Onset (ago): day(s) Related Data Home Medications ?Medication ?Instructions ?Recorded ?Confirmed losartan 100 mg tablet 100 mg PO DAILY High blood p ressure 06/23/17 08/04/23 allopurinol 300 mg tablet 300 mg PO DAILY gout 1 08/04/23 fenofibric acid (choline) 135 mg 135 mg PO DAILY Amita sterol 10/28/20 08/04/23 capsule,delayed release cetirizine 10 mg capsule 10 mg PO DAILY ALLERGIES 08/04/23 Allergies Allergy/AdvReac Type Severity Reaction Status Date / Time No Known Allergies Allergy Verified 08/05/23 10:16 [facility] Disclaimer: The information contained in this section may have been updated after the patient was seen, as this information can be updated by other users. Medical History Asthma Cancer HLD (hyperlipidemia) HTN (hypertension), benign SHIRA (obstructive sleep apnea) Skin cancer Surgical History H/O: hemorrhoidectomy History of cholecystectomy History of colonoscopy History of surgery on right wrist Family History Other Family history of diabetes mellitus Family history of pacemaker Hypertension Thyroid disorder Social History Smoking Status: Never smoker second hand exposure: Yes alcohol intake: never counseling provided: provider counseling substance use type: denies use current occupational status: employed Travel in the last 8 weeks?: None household members: spouse housing: house marital status: 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 current occupational exposures/hazards: No caffeine: Yes Have you lived/traveled outside US in past 30 days?: No Contact w/someone who lives/traveled outside US past 30 days?: No Exposure to someone with infectious disease in past 14 days?: No Do you have a fever (greater than 100.4 F or 38 C)?: No Have you tested positive for COVID-19?: No Exposed to someone with COVID-19 in past 14 days?: No Do you have a sore throat?: No Do you have a cough?: No Do you have any weakness?: No Do you have any diarrhea?: No Are you experiencing any unusual bleeding?: No Do you have any muscle aches/pain?: No Do you have any abdominal pain?: No Are you experiencing loss of taste or smell?: No Other Medical History Have you received the Flu Vaccine for this season: Yes Have you received the Pneumonia Vaccine: No ROS Obtained: Yes All systems reviewed & no additional complaints except as documented Physical Exam General General appearance: alert and in no apparent distress Head Head exam: atraumatic and normocephalic Eye Eye exam: Present PERRL and EOMI ENT ENT exam: Present mucous membranes moist Neck Neck exam: Present normal inspection Chest Chest inspection: Present normal inspection and symmetric chest wall rise Respiratory Respiratory exam: Present normal lung sounds bilaterally; Absent respiratory distress Cardiovascular Cardiovascular exam: Present regular rate and normal rhythm Abdominal Exam Abdominal exam: Present soft and tenderness; Absent distention, guarding, rebound or rigidity Abdominal tenderness: Present diffuse Extremities Exam Extremities exam: Present normal inspection Neurological Exam Neurological exam: Present alert and oriented X3 Psychiatric Psychiatric exam: Present normal affect Skin Skin exam: Present warm and dry Medical Decision Making Medical Records Medical records reviewed: Yes I reviewed the patient's medical records. Screening: Per USPSTF and CDC recommendations, given the prevalence of disease in our region, it is our hospital?s policy to screen for HIV and viral Hepatitis for all patients aged 18 and over and those with ongoing risk factors. Chau Inquiry Pt receiving controlled substance: No Chau was queried for this patient: No Vital Signs: 04/27/25 16:45 04/27/25 17:00 04/27/25 17:30 Temperature 98.2 F Temperature Source Oral Pulse Rate 83 82 Pulse Rate [Right Radial] 100 H Respiratory Rate 18 18 Blood Pressure 149/100 H 123/83 Blood Pressure [Right Arm] 126/87 Blood Pressure Mean 96 Blood Pressure Mean [Right Arm] 100 Blood Pressure Source Blood Pressure Source [Right Arm] Automatic Cuff Blood Pressure Position Blood Pressure Position [Right Arm] Sitting 02 Sat by Pulse Oximetry 100 97 97 Oxygen Delivery Method Room Air Room Air 04/27/25 18:01 04/27/25 18:30 04/27/25 20:10 Temperature 98.2 F Temperature Source Pulse Rate 81 80 80 Pulse Rate [Right Radial] Respiratory Rate 18 18 16 Blood Pressure 140/89 134/86 134/86 Blood Pressure [Right Arm] Blood Pressure Mean 106 98 Blood Pressure Mean [Right Arm] Blood Pressure Source Automatic Cuff Blood Pressure Source [Right Arm] Blood Pressure Position Sitting Blood Pressure Position [Right Arm] 02 Sat by Pulse Oximetry 97 99 Oxygen Delivery Method Room Air Lab Data Lab results reviewed: Yes I reviewed the patient's lab results. Lab Results 04/27/25 17:24: WBC 12.3 H, RBC 4.83, Hgb 15.4, Hct 43.5, MCV 90.1, MCH 31.9 H, MCHC 35.4, RDW 12.3, Plt Count 287, MPV 10.2, Neut % (Auto) 81.0 H, Lymph % (Auto) 11.3, [place] % (Auto) 7.1, Eos % (Auto) 0.1, Baso % (Auto) 0.2, Neut # (Auto) 10.0 H, Lymph # (Auto) 1.4, [place] # (Auto) 0.9, Eos # (Auto) 0.0, Baso # (Auto) 0.0, Sodium 134 L, Potassium 3.6, Chloride 100, Carbon Dioxide 25, Anion Gap 12.6, BUN 28 H, Creatinine 0.90, Estimated Creat Clear 97, Estimated GFR 86, Est GFR ( Amer) 103, Glucose 112 H, Lactate 1.1, Calcium 9.5, Magnesium 2.1, Total Bilirubin 1.1, AST 30, ALT 20, Alkaline Phosphatase 70, Total Protein 7.8, Albumin 4.7, Globulin 3.1, Albumin/Globulin Ratio 1.5, Lipase 71 04/27/25 17:24 04/27/25 17:24 Orders (Tests/Meds): ED MEDICATIONS Generic Name Dose Route Start Last Admin Trade Name Freq PRN Reason Stop Dose Admin Acetaminophen 650 mg 04/27/25 19:29 Acetaminophen 325mg Tab PO 05/27/25 19:28 Q4HP PRN Fever or Mild Pain (1-3) Docusate Sodium 100 mg 04/28/25 09:00 Docusate Sodium 100 Mg Capsule PO 05/28/25 08:59 DAILY DYLON Enoxaparin Sodium 40 mg 04/28/25 09:00 Enoxaparin 40mg/0.4ml Syringe SUBCUT 05/28/25 08:59 DAILY DLYON Lactated Ringer's 1,000 mls @ 999 mls/hr 04/27/25 19:15 04/27/25 19:42 Lactated Ringer's 1000 Ml Bag IV 04/27/25 20:15 999 mls/hr .Q1H1M ONE Administration Sodium Chloride 1,000 mls @ 100 mls/hr 04/27/25 19:30 Sod Chlor 0.9% 1000ml Bag IV 05/27/25 19:29 .Q10H DYLON Sodium Chloride 10 ml 04/27/25 18:22 04/27/25 18:23 Sodium Chloride 0.9% 10ml Syr (Rad Only) IV 05/27/25 18:21 10 ml NEEDED PRN Administration Maintain IV Site Discontinued Medications Generic Name Dose Route Start Last Admin Trade Name Freq PRN Reason Stop Dose Admin Iopamidol 75 ml 04/27/25 18:22 04/27/25 18:23 Iopamidol-370 (76%);100ml Bottle IV 04/27/25 18:23 75 ml ONCE ONE Administration Mineral Oil 133 ml 04/27/25 19:15 04/27/25 19:41 Mineral Oil Enema 133ml RC 04/27/25 19:16 133 ml ONCE ONE Administration Polyethylene Glycol/Electrolytes 4,000 ml 04/27/25 19:15 Peg-Electrolyte Soln 4000ml Bottle PO 04/27/25 19:16 ONCE ONE Sodium Phosphate 133 ml 04/27/25 18:42 04/27/25 18:44 Sodium Phos/Biphosphate Fleet 133ml Enema RC 04/27/25 18:43 133 ml ONCE ONE Administration ORDERS Category Date Time Status CT abdomen pelvis w con Stat Cat Scan 04/27/25 17:00 Completed Complete Blood Count Auto Diff AMLAB Lab 04/28/25 06:00 Ordered Complete Blood Count Auto Diff Stat Lab 04/27/25 17:24 Completed Comprehensive Metabolic Panel AMLAB Lab 04/28/25 06:00 Ordered Comprehensive Metabolic Panel Stat Lab 04/27/25 17:24 Completed Lactic Acid Stat Lab 04/27/25 17:24 Completed Lipase Stat Lab 04/27/25 17:24 Completed Magnesium Stat Lab 04/27/25 17:24 Completed Urinalysis and Microscopic Stat Lab 04/27/25 17:00 Ordered Medical Decision Narrative: 64-year-old male presents to the emergency department with abdominal pain constipation for around 10 days, differential diagnose include but not limited to constipation, fecal impaction, bowel obstruction, ileus, volvulus, pseudo colonic obstruction, colitis, pancreatitis, urinary outflow obstruction, acute UTI, nephrolithiasis among others I discussed this patient's case with the attending physician Dr. Shah Will obtain basic laboratory studies, lactic acid level lipase level magnesium level UA, CT ab pelvis with contrast, bladder scan. Nursing staff performed bladder scan, patient had 185 mL in urinary bladder. CBC is notable for mild leukocytosis 12.3 otherwise unremarkable CMP is noted for mild hyponatremia 134, mild BUN elevation at 28, no lactic acidosis, otherwise unremarkable CMP. Will attempt soapsuds/Fleet enema for constipation. I reviewed the patient's CT head and pelvis with contrast along the corresponding radiologic report, large stool burden throughout the colon with stool distending in the rectum which has inflammatory changes compatible with stercoral colitis. Fleet enema is unsuccessful per patient. I discussed these results with the patient and family the bedside, will start mineral oil enema as well as GoLytely, and start 1 L LR IV. At this time patient does not warrant any broad-spectrum antibiotics due to no signs of perforation on CT abdomen pelvis no clinical signs of perforation/peritonitis. I discussed this patient's case with the hospitalist provider Nolvia Corcoran APRN at approximately 7:20 PM, she is agreement with the current admission plan/treatment plan for stercoral colitis. I discussed need for admission with the patient family bedside patient and family are in agreement with current admission plan/treatment plan. Critical Care Critical Care Time Critical Care Time: No
--- OUTSIDE RECORDS SUMMARY | 2025-04-27 16:55 | XMS_ITS | Data Portability ---
Author Organization [facility] KENN Jacobs OTIS CLOSED Address [address] [place] [address] Care Team Providers Care Vice Admiral Name Role Phone EDUAR ASHLEY Watch Band Assembler ALVERTO WILL Primary Care Provider [phone] Assessment No assessment recorded. Plan of Treatment Reminders Order Date Submit Date Provider Last Modified By Organization Details Last Modified Time Details Appointments DERM ESTABLISH ED 2025 02:40P M DR. FARAH Not available Not available Not available Lab surgical pathology study 2023 024 [facility], [address] [place] [address], [id number], 12/16/2023 12:37:50 Referral None recorded. Procedures None recorded. Surgeries None recorded. Imaging None recorded. Medication Orders None recorded. Patient TargetsNo targets recorded. Patient InstructionsNo instructions recorded. Reason for Referral None Reported. Results Created Date Observation Date Name Description Value Unit Range Abnormal Flag Note LastModifiedBy Organization Detail LastModifiedTime Result Notes None recorded. Procedures Surgical History Date Name Laterality Status Provider Name and Address Organization Details Recorded Time 12/14/19 24 Blade Biopsy w/ ED&C completed [facility] 12/14/2023 14:51:24 12/14/19 24 Destruction BN Lesions completed [facility] 12/14/2023 14:49:27 Cholecystectomy completed Summer Vásquez [facility] 12/14/2023 14:41:13 Imaging Results None recorded. Procedure Notes None recorded. Medical Equipment None Reported. Allergies No known drug allergies Medications Name Sig Start Date Stop Date Status Note LastModified by Organization Details LastModified Time losartan active Not Available Not Avai lable Not Available allopurinol active Not Available Not A vailable Not Available Vitals None Recorded Social History Question Answer Notes LastModified by Organizat ion Details LastModified Time Tobacco Smoking Status Never Smoker Summer Vásquez [facility] 12/14/2023 14:39:59 Sunscreen Use? Yes Occasinal Use [email or web address] Informa tion not available 12/14/2023 Tanning Bed Use No [email or web address] Information not available 12/14/2023 What Was The Date Of Your Most Recent Tobacco Screening? 02/12/2025 [email or web address] Information not available 02/12/2025 Sex: Unknown Functional Status Question Answer Note LastModified by Organization D etails LastModified Time What is your level of alcohol consumption? None [email or web address] Information not available 12/14/2023 Mental Status None recorded. Family History Relationship Description Onset Age of this Age Resolved Age Notes LastModified by Organization Details LastModified Time Father No current problems or disability [email or web address] Not available 08/2023 14:39:55 Mother No current problems or disability [email or web address] Not available 08/2023 14:39:55 Medical History Condition Response Basal Cell Carcinoma Y Past Encounters Encounter ID Performer Location Encounter Start Date Encounter Closed Date Diagnosis/Indication Diagnosis SNOMED-CT Code Diagnosis ICD10 Code Diagnosis IMO Codes Diagnosis Note [id number] EDUAR FARAH MD [address] [address] 12/14/2023 14:11:06 12/14/2023 15:04:44 Multiple benign melanocytic nevi 121389400 D22.5 L81.4 D18.01 L82.1 Benign appearing lesions.Re assurance given.Sun protection discussed with pt.Call with questions or concerns. History of malignant neoplasm of skin 592686574 Z85.828 The scar is clear with no evidence of recurrence .Cont to monitor for any changes. Neoplasm o f uncertain behavior of skin 22432165 D48.5 The etiology of lesion(s) discussed. Biopsy w ED&C recommende d. r o bcc left noseWill call pt with results or post to portal if benign. Inflamed s eborrheic keratosis [id number] L82.0 R20.8 Benign appearing lesions.Si nce bothersome and painful, will treat with LN2.Lesion s treated today may persist.F/ u if treated lesions persist. [id number] EDUAR FARAH MD [facility] [address] [place] [address] 02/12/2025 15:38:31 02/12/2025 16:36:42 Multiple benign melanocytic nevi 693273739 D22.5 L81.4 D18.01 L82.1 Benign appearing lesions. Reassuranc e given. Sun protection discussed with pt. Call with questions or concerns. History of malignant neoplasm of skin 989745977 Z85.828 L90.5 16308 Scar(s) clear with no evidence recurrence . Continue to monitor for any changes. Health Concerns Section Related Observation LastModified by Organization Detai ls LastModified Time None Recorded Concern Status LastModified by Organization Details LastModified Time None Recorded Advance Directives Directive None Recorded Payers Insurance Date Sequence Insurance Name Policy Number Policy Sharma Covered Member ID Sharma Member ID Guarantor Name 02/12/2025 1 [facility] [id number] Olivia Waite [id number] Thang Waite 02/12/2025 1 [place] [id number] Olivia Waite [id number] Thang Waite Notes Date Note Type Note Provider Name and Address Organization Details Recorded Time 12/14/2023 text/html ROS as noted in the HPI FBSElast fbse: few years (another office)tx: bcc - R deltoid (2016)reports: spot on nose, forehead EDUAR FARAH MD [address] [place], [address], [facility] 12/14/2023 17:37:15 02/12/2025 text/html last seen December 2023 had bcc left nose txd w ED&Csk ch fb se, no concern, hx: bcc - R deltoid and l nose EDUAR FARAH MD [address] [place], [address], [facility] 02/12/2025 17:31:58
--- NOTE | 2025-04-27 16:59 | PC.NURSE ---
BLADDER SCANNED FOR 185ML. UNABLE TO URINATE @ THIS TIME
--- NOTE | 2025-04-27 17:00 | CT_ITS ---
PROCEDURE INFORMATION: Exam: CT Abdomen And Pelvis With Contrast Exam date and time: 04/27/2025 6:20 PM Age: 64 years old Clinical indication: Abdominal pain; Additional info: Constipation abdominal pain obstipation TECHNIQUE: Imaging protocol: Computed tomography of the abdomen and pelvis with contrast. Radiation optimization: All CT scans at this facility use at least one of these dose optimization techniques: automated exposure control; mA and/or kV adjustment per patient size (includes targeted exams where dose is matched to clinical indication); or iterative reconstruction. Contrast material: ISOVUE; Contrast volume: 75 ml; Contrast route: IV; COMPARISON: MR ABDOMEN WO CON 11/12/2020 10:57 AM FINDINGS: Liver: Diffuse hypoattenuation of the liver compatible with mild hepatic steatosis. Gallbladder and biliary ducts: There are surgical clips within the gallbladder fossa. Pancreas: Normal. No ductal dilation. Spleen: Normal. No splenomegaly. Adrenal glands: Normal. No mass. Kidneys and ureters: Normal. No hydronephrosis. Stomach and bowel: Large stool burden throughout the colon with stool distending the rectum which has inflammatory changes compatible with stercoral colitis. Appendix: No evidence of appendicitis. Intraperitoneal space: Unremarkable. No free air. No significant fluid collection. Vasculature: Mild calcific atherosclerotic disease is scattered throughout the abdominal aorta without aneurysmal dilatation. Lymph nodes: Unremarkable. No enlarged lymph nodes. Urinary bladder: Unremarkable as visualized. Reproductive: Unremarkable as visualized. Bones/joints: Mild loss of intervertebral disc space with degenerative changes involving L4 through S1. Soft tissues: Normal. IMPRESSION: Large stool burden throughout the colon with stool distending the rectum which has inflammatory changes compatible with stercoral colitis.
[2025-04-27 17:30] LABS: Hematocrit 43.5 % (42.0-52.0); Hemoglobin 15.4 g/dL (14.1-18.0); Immature Granulocytes % 0.3 %; Mean Corpuscular HGB Conc 35.4 g/dL (31.8-35.4); Mean Corpuscular Hemoglobin 31.9 pg (27.0-31.2); Mean Corpuscular Volume 90.1 fl (80-94); Nucleated Red Blood Cells % 0 %; Platelet Count 287 K/mm3 (142-424); Red Blood Count 4.83 M/mm3 (4.60-6.20); Red Cell Distribution Width-SD 40.2 fL; White Blood Count 12.3 K/mm3 (4.8-10.8)
[2025-04-27 17:36] LABS: Albumin Level 4.7 g/dl (3.5-5.0); Chloride 100 mmol/L (98-107)
[2025-04-27 17:37] LABS: Potassium 3.6 mmoL/L (3.5-5.1); Sodium 134 mmol/L (136-145)
[2025-04-27 17:39] LABS: Alanine Aminotransferase 20 U/L (12-78); Albumin/Globulin Ratio 1.5 (1.1-1.8); Alkaline Phosphatase 70 U/L (38-126); Anion Gap 12.6 mEq/L (5-15); Aspartate Amino Transferase 30 U/L (17-59); Bilirubin,Total 1.1 mg/dl (0.2-1.3); Blood Urea Nitrogen 28 mg/dl (9-20); Carbon Dioxide 25 mmol/L (22.0-30.0); Creatinine Clearance Estimated 97 mL/min (50-200); Creatinine,Serum 0.90 mg/dl (0.66-1.25); Estimated Glomerular Filt Rate 86 ml/min (>60); GFR (African American) 103 ML/MIN (>60); Globulin 3.1 g/dL (1.3-3.2); Total Protein,Serum 7.8 g/dl (6.3-8.2)
[2025-04-27 17:40] LABS: Calcium 9.5 mg/dl (8.4-10.2); Glucose 112 mg/dl (74-100); Lipase 71 U/L (23-300); Magnesium 2.1 mg/dl (1.6-2.3)
[2025-04-27] MEDS: SODIUM CHLORIDE 0.9% 10ML SYR (RAD ONLY) 10 ML IV (18:23)
[2025-04-27] MEDS: IOPAMIDOL-370 (76%);100ML BOTTLE 75 ML IV (18:23)
[2025-04-27] MEDS: SODIUM PHOS/BIPHOSPHATE FLEET 133ML ENEMA 133 ML RC (18:44)
[2025-04-27] MEDS: MINERAL OIL ENEMA 133ML 133 ML RC (19:41)
[2025-04-27] MEDS: LACTATED RINGERS 1000ML 1,000 ML 999 ML IV (19:42)
--- NOTE | 2025-04-27 20:08 | PC.NURSE ---
Pt reports that he did not get relief from the mineral oil enema, report given to TRINA Dutta.
--- NOTE | 2025-04-27 21:07 | P.HP_ITS ---
<Statement entered by Joel Caldera MD - 04/28/25 07:12> Rounded on patient after nurse practitioner. Personally examined and interviewed patient. Agree with exam findings and care plan as documented. History of Present Illness *Admission Date: 04/27/25 *Reason for visit:: Constipation *History of present illness: 64-year-old male patient presents to ER with complaints of no bowel movement for 10 to 11 days. He has known history of severe constipation. Takes lactulose twice daily at home as well as MiraLAX and Metamucil as needed. States 10 days ago he had a very large bowel movement but it was very difficult to pass. Today he presents to the ER with no bowel movement and a brief episode of abdominal pain earlier in the day. Currently he is pain-free. He has some nausea but no vomiting. No fever chills or bodyaches. States he has had trouble with constipation since starting Wegovy. He has lost to 100 pounds and no longer wears a CPAP. He received a fleets enema as well as a mineral oil enema in the ER. GoLytely has been ordered. Imaging shows large stool burden throughout the colon with stool distending the rectum. Inflammatory changes are present compatible with stercoral colitis. No evidence of free air and no significant fluid collection in the peritoneal space. White count is slightly elevated at 12 otherwise labs are unremarkable [facility] Disclaimer: The information contained in this section may have been updated after the patient was seen, as this information can be updated by other users. Medical History (Updated 04/28/25 @ 00:44 by Nolvia Jeter APRN) Gout SIHRA (obstructive sleep apnea) Skin cancer HLD (hyperlipidemia) HTN (hypertension), benign Cancer Asthma Surgical History History of surgery on right wrist History of colonoscopy H/O: hemorrhoidectomy History of cholecystectomy Family History Other Family history of diabetes mellitus Family history of pacemaker Hypertension Thyroid disorder Social History Smoking Status: Never smoker second hand exposure: Yes alcohol intake: never counseling provided: provider counseling substance use type: denies use current occupational status: employed Travel in the last 8 weeks?: None household members: spouse housing: house marital status: 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 current occupational exposures/hazards: No caffeine: Yes Have you lived/traveled outside US in past 30 days?: No Contact w/someone who lives/traveled outside US past 30 days?: No Exposure to someone with infectious disease in past 14 days?: No Do you have a fever (greater than 100.4 F or 38 C)?: No Have you tested positive for COVID-19?: No Exposed to someone with COVID-19 in past 14 days?: No Do you have a sore throat?: No Do you have a cough?: No Do you have any weakness?: No Are you experiencing any nausea/vomitting?: No Do you have any diarrhea?: No Are you experiencing any unusual bleeding?: No Do you have any muscle aches/pain?: No Do you have any abdominal pain?: No Are you experiencing loss of taste or smell?: No Other Medical History Have you received the Flu Vaccine for this season: Yes Have you received the Pneumonia Vaccine: No Review of Systems Constitutional Constitutional: Denies body ache(s), Denies chills, Denies fever(s) and Reports malaise Eyes Eyes: Reports system reviewed and no additional complaints, except as documented ENT Ears, Nose, Mouth, and Throat: Reports system reviewed and no additional complaints, except as documented, Denies disequilibrium and Denies dizziness *Cardiovascular Cardiovascular: Denies chest pain and Reports dyspnea *Respiratory Respiratory: Reports dyspnea *Gastrointestinal Gastrointestinal: Reports abdominal pain and Reports constipation (Last BM 10 or 11 days ago) *Genitourinary Genitourinary: Denies difficulty urinating and Denies dysuria *Musculoskeletal Musculoskeletal: Denies back pain and Denies myalgias *Neurologic Neurologic: Denies abnormal speech, Denies disequilibrium and Denies dizziness Meds Home Medications and Allergies Home Medications ?Medication ?Instructions ?Recorded ?Confirmed ?Type allopurinol 300 mg tablet 300 mg PO DAILY gout 1 04/27/25 History fenofibric acid (choline) 135 mg 135 mg PO DAILY Amita sterol 10/28/20 04/27/25 History capsule,delayed release amoxicillin 500 mg capsule 500 mg PO TID 04/27/2504/13 History lactulose 10 gram/15 mL oral 30 ml PO BID PRN Constipa tion 04/27/25 04/27/25 History solution losartan 50 mg-hydrochlorothiazide 1 tab PO DAILY 04/1304/27/25 History 12.5 mg tablet montelukast 10 mg tablet 10 mg PO DAILY 04/27/2504/13 History semaglutide (weight loss) 2.4 2.4 mg SQ Q7D 04/27/25 1 06/27/24 History mg/0.75 mL subcutaneous pen injector (Sofi) New Prescriptions to Start Prescriptions: Allergies Allergy/AdvReac Type Severity Reaction Status Date / Time No Known Allergies Allergy Verified 08/05/23 10:16 Exam Data for Last 24 hours Vital signs and Labs for Last 24 Hours: Temp Pulse Resp BP Pulse Ox O2 Del Method 98.2 F 80 16 134/86 98 Room Air 04/27/25 20:10 04/27/25 20:10 04/27/25 20:10 04/27/25 20:10 04/27/25 20:00 04/27/25 20:10 Laboratory Results - last 24 hr 04/27/25 17:24: WBC 12.3 H, RBC 4.83, Hgb 15.4, Hct 43.5, MCV 90.1, MCH 31.9 H, MCHC 35.4, RDW 12.3, Plt Count 287, MPV 10.2, Neut % (Auto) 81.0 H, Lymph % (Auto) 11.3, [place] % (Auto) 7.1, Eos % (Auto) 0.1, Baso % (Auto) 0.2, Neut # (Auto) 10.0 H, Lymph # (Auto) 1.4, [place] # (Auto) 0.9, Eos # (Auto) 0.0, Baso # (Auto) 0.0, Sodium 134 L, Potassium 3.6, Chloride 100, Carbon Dioxide 25, Anion Gap 12.6, BUN 28 H, Creatinine 0.90, Estimated Creat Clear 97, Estimated GFR 86, Est GFR ( Amer) 103, Glucose 112 H, Lactate 1.1, Calcium 9.5, Magnesium 2.1, Total Bilirubin 1.1, AST 30, ALT 20, Alkaline Phosphatase 70, Total Protein 7.8, Albumin 4.7, Globulin 3.1, Albumin/Globulin Ratio 1.5, Lipase 71 I & O for Last 24 hours: Intake & Output 04/24/25 04/25/25 04/26/25 04/27/25 23:59 23:59 23:59 23:59 Weight 91.314 kg Constitutional Constitutional: no acute distress *Routine HEENT Exam Head: Present normocephalic and atraumatic Eye: Present PERRL ENT: Present mucous membranes moist *Routine Neck Exam Neck: Present supple *Routine Respiratory Exam Respiratory: Present CTA bilaterally *Routine Cardiovascular Exam Cardiovascular: Present RRR, Normal S1 and Normal S2 *Routine Abdominal Exam Abdominal: Present soft and normoactive bowel sounds (Bowel sounds present in all 4 quadrants upper quadrants are louder and more frequent); Absent tenderness or guarding *Routine Rectal Exam Rectal:: deferred *Routine Genitalia Exam Genitalia:: deferred *Routine Extremities Exam Extremities: Present pulses intact; Absent edema *Routine Skin Exam Skin: Present dry and warm *Routine Neurological Exam Neurological: Present alert, oriented X3 and moving all extremities Assessment and Plan *Assessment and plan (1) Stercoral colitis: Status: Acute Category: Medical Code(s): K52.89 - Other specified noninfective gastroenteritis and colitis (2) SHIRA on CPAP: Problem Comment: Mild SHIRA, compliant with CPAP, improved tolerance with ResMed device Status: Chronic Category: Medical Code(s): G47.33 - Obstructive sleep apnea (adult) (pediatric) (3) HTN (hypertension), benign: Status: Acute Category: Medical Code(s): I10 - Essential (primary) hypertension (4) HLD (hyperlipidemia): Status: Acute Qualifiers: Hyperlipidemia type: unspecified Qualified Code(s): E78.5 - Hyperlipidemia, unspecified Category: Medical Code(s): E78.5 - Hyperlipidemia, unspecified Plan Patient presents to ER after a short episode of abdominal pain earlier in the day and reports he has not had a bowel movement in 10 to 11 days. His last bowel movement was very large and very hard to pass. He does have known history of constipation. CT abdomen showed stercoral colitis. No evidence of perforation. After discussion with the ER physician I agreed to accept this patient for admission for further treatment and monitoring. He states troubles with constipation started when he started taking Wegovy. He has lost 100 pounds since taking the medication. In the ER he received mineral oil and fleets enemas and GoLytely has been ordered. Will provide IV fluids for hydration as he does have a slight bump in his BUN. Have ordered MiraLAX daily as well as Colace. SHIRA?patient has used CPAP in the past but states he has not needed it since losing 100 pounds. Hypertension/hyperlipidemia-Blood pressures currently stable. Will continue home medications once verified.
[2025-04-27] MEDS: PEG-ELECTROLYTE SOLN 4000ML BOTTLE 4000 ML PO (21:27)
[2025-04-27 22:19] LABS: Microscopic, Urine URINE MICROSCOPIC (MICROSCOPIC)
[2025-04-27 22:21] LABS: Bilirubin,Urine Negative (Negative); Color,Urine YELLOW (Yellow); Glucose,Urine (UA) Negative (Negative); Ketones,Urine TRACE (Negative); Leukocyte Esterase,Urine Negative (Negative); PH,Urine 6.5 (5.0-8.5); Protein,Urine Negative (Negative); Specific Gravity, Urine 1.015 (1.005-1.030); Urobilinogen,Urine 1.0 EU/dl (0.2)
[2025-04-27 22:31] LABS: Calcium Oxalate Crystals,Urine 2+ /lpf; RBC,Urine Occasional #/hpf (0-3)
[2025-04-27] MEDS: 0.9 % SODIUM CHLORIDE 1000ML 1,000 ML 100 ML IV (22:44)
--- NOTE | 2025-04-28 01:47 | PC.NURSE ---
Pt started the Golytely prep. he started about 2229 having bms. Pt had several BMs andhe was C/O of stomach discomforts. A 5 on a scale of 0 to 10. Phoned Nolvia Jeter NP and made her aware of his progress and concerns of his discomfort. will continue to monitor PT. HÉCTOR TIAN RN
[2025-04-28 04:00] VITALS: BP 123/60; PULSE 81; RESP 16; TEMP 36.4; O2SAT 96; BMI 28.9
--- NOTE | 2025-04-28 05:24 | PC.NURSE ---
Pt was admitted tonight during shift. Came up to the floor by wheelchair. Had been constipated since 04/17/2025. PT had 2 enemas in the ER when got to the room started Golytely Prep to help relieve the constipation of a large stool burden. WBC was 12.3 on admission. PT had op gum procedure earlier this week. Respirations are even and unlabored. alert and oriented X4. Pt has had between 4 and 6 BMS since being admitted. Call light is with in reach. HÉCTOR TIAN RN
--- NOTE | 2025-04-28 07:19 | EXP.DC.SUM ---
General Admission date:: 04/27/25 Discharge date: 04/28/25 HPI HPI HPI: 64-year-old male patient presents to ER with complaints of no bowel movement for 10 to 11 days. He has known history of severe constipation. Takes lactulose twice daily at home as well as MiraLAX and Metamucil as needed. States 10 days ago he had a very large bowel movement but it was very difficult to pass. Today he presents to the ER with no bowel movement and a brief episode of abdominal pain earlier in the day. Currently he is pain-free. He has some nausea but no vomiting. No fever chills or bodyaches. States he has had trouble with constipation since starting Wegovy. He has lost to 100 pounds and no longer wears a CPAP. He received a fleets enema as well as a mineral oil enema in the ER. GoLytely has been ordered. Imaging shows large stool burden throughout the colon with stool distending the rectum. Inflammatory changes are present compatible with stercoral colitis. No evidence of free air and no significant fluid collection in the peritoneal space. White count is slightly elevated at 12 otherwise labs are unremarkable Hospital Course Hospital Course Hospital Course: Patient presents to ER after a short episode of abdominal pain earlier in the day and reports he has not had a bowel movement in 10 to 11 days. His last bowel movement was very large and very hard to pass. He does have known history of constipation. CT abdomen showed stercoral colitis. No evidence of perforation. After discussion with the ER physician I agreed to accept this patient for admission for further treatment and monitoring. He states troubles with constipation started when he started taking Wegovy. He has lost 100 pounds since taking the medication. In the ER he received mineral oil and fleets enemas and GoLytely has been ordered. Will provide IV fluids for hydration as he does have a slight bump in his BUN. Patient had 8 bowel movements overnight and felt significantly better by morning. Electrolytes remained stable. Sodium 132, BUN 18 creatinine 0.7. Potassium 3.5. Magnesium 2.1. Clinically feeling better. Tolerating p.o. intake. Will transition to MiraLAX 17 g twice daily scheduled with docusate senna nightly. If having loose stools but still not going frequently, recommend transitioning to docusate senna twice daily with MiraLAX once daily. If no benefit over the next 1 to 2 weeks, discussed following up with GI as an outpatient. Given contact information. SHIRA?patient has used CPAP in the past but states he has not needed it since losing 100 pounds. Hypertension/hyperlipidemia-sinew home regimen with losartan/HCTZ daily. Continue allopurinol 300 mg daily for gout Total time spent on discharge 32 minutes in extensive counseling about bowel regimen adjustments, documentation, chart review, and direct care with patient. Exam Data for Last 24 hours Vital signs and Labs for Last 24 Hours: Temp Pulse Resp BP Pulse Ox O2 Del Method 97.6 F 81 16 123/60 96 Room Air 04/28/25 04:00 04/28/25 04:00 04/28/25 04:00 04/28/25 04:00 04/28/25 04:00 04/28/25 05:00 Laboratory Results - last 24 hr 04/27/25 17:24: WBC 12.3 H, RBC 4.83, Hgb 15.4, Hct 43.5, MCV 90.1, MCH 31.9 H, MCHC 35.4, RDW 12.3, Plt Count 287, MPV 10.2, Neut % (Auto) 81.0 H, Lymph % (Auto) 11.3, [place] % (Auto) 7.1, Eos % (Auto) 0.1, Baso % (Auto) 0.2, Neut # (Auto) 10.0 H, Lymph # (Auto) 1.4, [place] # (Auto) 0.9, Eos # (Auto) 0.0, Baso # (Auto) 0.0, Sodium 134 L, Potassium 3.6, Chloride 100, Carbon Dioxide 25, Anion Gap 12.6, BUN 28 H, Creatinine 0.90, Estimated Creat Clear 97, Estimated GFR 86, Est GFR ( Amer) 103, Glucose 112 H, Lactate 1.1, Calcium 9.5, Magnesium 2.1, Total Bilirubin 1.1, AST 30, ALT 20, Alkaline Phosphatase 70, Total Protein 7.8, Albumin 4.7, Globulin 3.1, Albumin/Globulin Ratio 1.5, Lipase 71 04/27/25 21:21: Urine Color Yellow, Urine Appearance Clear, Urine pH 6.5, Ur Specific Kegley 1.015, Urine Protein Negative, Urine Glucose (UA) Negative, Urine Ketones Trace, Urine Blood Negative, Urine Nitrate Negative, Urine Bilirubin Negative, Urine Urobilinogen 1.0, Ur Leukocyte Esterase Negative, Urine RBC Occasional, Calcium Oxalate Crystal 2+ I & O for Last 24 hours: Intake & Output 04/25/25 04/26/25 04/27/25 04/28/25 23:59 23:59 23:59 23:59 Intake Total 1000 / 1860 860 / 860 Output Total 250 / 250 Balance 1000 / 1860 610 / 610 Weight 91.314 kg 91.739 kg Constitutional Constitutional: no acute distress *Routine HEENT Exam Head: Present normocephalic Eye: Present EOMI and PERRL ENT: Present mucous membranes moist *Routine Neck Exam Neck: Present supple; Absent lymphadenopathy *Routine Respiratory Exam Respiratory: Present CTA bilaterally *Routine Cardiovascular Exam Cardiovascular: Present RRR *Routine Abdominal Exam Abdominal: Present soft and normoactive bowel sounds; Absent tenderness *Routine Rectal Exam Patient deferred: visual exam *Routine Exam Patient deferred: penile exam *Routine Extremities Exam Extremities: Absent cyanosis, clubbing or edema *Routine Skin Exam Skin: Present warm; Absent rash *Routine Neurological Exam Neurological: Present alert, oriented X3 and moving all extremities; Absent altered mental status Results Data Completed and Pending Labs on day of discharge: Labs from last 24 hours 04/27/25 04/27/25 21:21 17:24 WBC 12.3 H RBC 4.83 Hgb 15.4 Hct 43.5 MCV 90.1 MCH 31.9 H MCHC 35.4 RDW 12.3 Plt Count 287 MPV 10.2 Neut % (Auto) 81.0 H Lymph % (Auto) 11.3 [place] % (Auto) 7.1 Eos % (Auto) 0.1 Baso % (Auto) 0.2 Neut # (Auto) 10.0 H Lymph # (Auto) 1.4 [place] # (Auto) 0.9 Eos # (Auto) 0.0 Baso # (Auto) 0.0 Sodium 134 L Potassium 3.6 Chloride 100 Carbon Dioxide 25 Anion Gap 12.6 BUN 28 H Creatinine 0.90 Estimated Creat Clear 97 Estimated GFR 86 Est GFR ( Amer) 103 Glucose 112 H Lactate 1.1 Calcium 9.5 Magnesium 2.1 Total Bilirubin 1.1 AST 30 ALT 20 Alkaline Phosphatase 70 Total Protein 7.8 Albumin 4.7 Globulin 3.1 Albumin/Globulin Ratio 1.5 Lipase 71 Urine Color Yellow Urine Appearance Clear Urine pH 6.5 Ur Specific [place] 1.015 Urine Protein Negative Urine Glucose (UA) Negative Urine Ketones Trace Urine Blood Negative Urine Nitrate Negative Urine Bilirubin Negative Urine Urobilinogen 1.0 Ur Leukocyte Esterase Negative Urine RBC Occasional Calcium Oxalate Crystal 2+ DS: Diagnosis Discharge Diagnosis (1) Stercoral colitis: Status: Acute Code(s): K52.89 - Other specified noninfective gastroenteritis and colitis (2) SHIRA on CPAP: Status: Chronic Code(s): G47.33 - Obstructive sleep apnea (adult) (pediatric) Problem details: Mild SHIRA, compliant with CPAP, improved tolerance with ResMed device (3) HTN (hypertension), benign: Status: Acute Code(s): I10 - Essential (primary) hypertension (4) HLD (hyperlipidemia): Status: Acute Code(s): E78.5 - Hyperlipidemia, unspecified Qualifiers: Hyperlipidemia type: unspecified Qualified Code(s): E78.5 - Hyperlipidemia, unspecified Meds Home Medications and Allergies Home Medications ?Medication ?Instructions ?Recorded ?Confirmed ?Type allopurinol 300 mg tablet 300 mg PO DAILY gout 10/28/20 04/27/25 History fenofibric acid (choline) 135 mg 135 mg PO DAILY Cholesterol 10/28/20 04/27/25 History capsule,delayed release amoxicillin 500 mg capsule 500 mg PO TID 04/27/25 04/27/25 History losartan 50 mg-hydrochlorothiazide 1 tab PO DAILY 04/27/25 04/27/25 History 12.5 mg tablet montelukast 10 mg tablet 10 mg PO DAILY 04/27/25 04/27/25 History semaglutide (weight loss) 2.4 2.4 mg SQ Q7D 04/27/25 04/27/25 History mg/0.75 mL subcutaneous pen injector (Wegovy) polyethylene glycol 3350 17 gram 17 g PO BID 30 days #100 ea 04/28/25 Rx oral powder packet (HealthyLax) sennosides 8.6 mg-docusate sodium 1 tab-cap PO HS #30 tabs 04/28/25 Rx 50 mg tablet (Laxative Stool Softener With Senna) New Prescriptions to Start Prescriptions: polyethylene glycol 3350 [HealthyLax] Joel Caldera sennosides-docusate sodium [Lax Stool Softener With Senna] Joel Caldera Allergies Allergy/AdvReac Type Severity Reaction Status Date / Time No Known Allergies Allergy Verified 08/05/23 10:16 Discharge Plan Disposition Patient Disposition: Home, Self-Care Condition: Good Follow up Plan Follow up with: Anant Esteves MD [Primary Care Provider, Medical] - Enter time for follow up Griffin Hitchcock II, MD [Staff Physician, Gastroenterology] - Enter time for follow up Prescriptions/Medication Reconciliation: New polyethylene glycol 3350 [HealthyLax] 17 gram Powder In Packet 17 g PO BID 30 Days Qty: 100 0RF sennosides-docusate sodium [Lax Stool Softener With Senna] 8.6-50 mg tablet 1 tab-cap PO HS Qty: 30 0RF Continued fenofibric acid (choline) 135 mg capsule,delayed release(DR/EC) 135 mg PO DAILY allopurinol 300 mg tablet 300 mg PO DAILY amoxicillin 500 mg capsule 500 mg PO TID montelukast 10 mg tablet 10 mg PO DAILY losartan-hydrochlorothiazide 50-12.5 mg tablet 1 tab PO DAILY Wegovy 2.4 mg/0.75 mL pen injector 2.4 mg SQ Q7D Discontinued lactulose 10 gram/15 mL solution 30 ml PO BIDP PRN (Reason: Constipation) Problem Reconciliation Problems Reviewed?: Yes Patient Discharge Instructions ACTIVITY: Continue current activity DIET: continue same diet Patient Instructions: Hemorrhoids, Diarrhea Print Language: Upper Sorbian Providers Primary Care Provider: Anant Esteves Admit Provider: Joel Caldera Attending Provider: Joel Caldera
[2025-04-28 07:49] LABS: Hematocrit 40.8 % (42.0-52.0); Hemoglobin 14.1 g/dL (14.1-18.0); Immature Granulocytes % 0.2 %; Mean Corpuscular HGB Conc 34.6 g/dL (31.8-35.4); Mean Corpuscular Hemoglobin 31.6 pg (27.0-31.2); Mean Corpuscular Volume 91.5 fl (80-94); Nucleated Red Blood Cells % 0 %; Platelet Count 251 K/mm3 (142-424); Red Blood Count 4.46 M/mm3 (4.60-6.20); Red Cell Distribution Width-SD 41.1 fL; White Blood Count 11.5 K/mm3 (4.8-10.8)
[2025-04-28 08:00] VITALS: BP 123/71; PULSE 76; RESP 18; TEMP 37.2; O2SAT 98
[2025-04-28 08:37] LABS: Alanine Aminotransferase 17 U/L (12-78); Albumin Level 4.2 g/dl (3.5-5.0); Albumin/Globulin Ratio 1.8 (1.1-1.8); Alkaline Phosphatase 62 U/L (38-126); Anion Gap 9.5 mEq/L (5-15); Aspartate Amino Transferase 42 U/L (17-59); Bilirubin,Total 1.4 mg/dl (0.2-1.3); Blood Urea Nitrogen 18 mg/dl (9-20); Calcium 8.9 mg/dl (8.4-10.2); Carbon Dioxide 25 mmol/L (22.0-30.0); Chloride 101 mmol/L (98-107); Creatinine Clearance Estimated 99 mL/min (50-200); Creatinine,Serum 0.70 mg/dl (0.66-1.25); Estimated Glomerular Filt Rate 114 ml/min (>60); GFR (African American) 138 ML/MIN (>60); Globulin 2.4 g/dL (1.3-3.2); Glucose 93 mg/dl (74-100); Potassium 3.5 mmoL/L (3.5-5.1); Sodium 132 mmol/L (136-145); Total Protein,Serum 6.6 g/dl (6.3-8.2)
[2025-04-28] MEDS: POLYETHYLENE GLYCOL 3350 17 GM PACKET PO (09:32)
[2025-04-28] MEDS: DOCUSATE SODIUM 100 MG CAPSULE 200 MG PO (09:32)
[2025-04-28] MEDS: AMOXICILLIN 500MG CAPSULE 500 MG PO (09:33)
[2025-04-28] MEDS: ALLOPURINOL 300MG TABLET 300 MG PO (09:33)
[2025-04-28] MEDS: MONTELUKAST SODIUM 10MG TAB 10 MG PO (09:33)
--- NOTE | 2025-04-28 09:44 | [facility].PHAAMS2 ---
- Antimicrobial Stewardship Review culture & sensitivity review Stewardship interventions: culture & sensitivity review (NO CX, COLITIS.)
--- NOTE | 2025-04-29 10:22 | SW/DCPLANNER ---
Spoke with patient on the phone. Patient stated that he is doing well. Patient stated that he is aware of his upcoming appointments. Patient stated that he was able to get his new medicine picked up from [facility]. Patient stated that he has no concerns or questions at this time. Alfonso Salmeron
== END 2025-04-28 11:50 | disposition home or self-care (01) ==
LOC: ER 19:23 → 2ND 19:34
PROVIDERS: Nurse Practitioner Acute Care; Physician Assistant; Admitting Provider Internal Medicine Adolescent Medicine; Emergency Provider Student in an Organized Health Care Education/Training Program; PCP Family Medicine; Visit Provider Internal Medicine Adolescent Medicine
DX: K52.89 Other specified noninfective gastroenteritis and colitis (principal); G47.33 Obstructive sleep apnea (adult) (pediatric); I10 Essential (primary) hypertension; E78.5 Hyperlipidemia, unspecified; Z79.899 Other long term (current) drug therapy; Z90.49 Acquired absence of other specified parts of digestive tract; Z82.49 Family history of ischemic heart disease and other diseases of the circulatory system; M10.9 Gout, unspecified; K59.00 Constipation, unspecified; J45.909 Unspecified asthma, uncomplicated; Z85.828 Personal history of other malignant neoplasm of skin
CPT/HCPCS: 36415; 51798; 74177; 80053; 81001; 83605; 83690; 83735; 85025; 96360; 96372; 99285; G0378; J1650; J7030; J7120; Q9967